=== PATIENT | female | born 1940 | race Caucasian/White ===

== ENCOUNTER 2019-10-17 13:16 | Emergency (ER) | payer MEDICARE, SELFPAY ==
[2019-10-17 13:16] VITALS: BP 166/94; PULSE 65; RESP 18; TEMP 36.7; O2SAT 95; BMI 37.8
--- NOTE | 2019-10-17 14:22 | ECG_ITS ---
Measurements Intervals [place] Rate: 58 P: 36 VA: 210 QRS: -34 QRSD: 96 T: 48 QT: 424 QTc: 420 SINUS BRADYCARDIA WITH FIRST DEGREE AV BLOCK LEFT AXIS DEVIATION [QRS AXIS < -30] LOW QRS VOLTAGE IN PRECORDIAL LEADS [QRS DEFLECTION < 1.0 mV IN CHEST LEADS] POSSIBLE ANTERIOR MYOCARDIAL INFARCTION , PROBABLY OLD Compared to ECG 03/13/2015 16:33:13 Sinus rhythm no longer present Myocardial infarct finding still present Electronically Signed On 10-18-2019 16:21:32 CDT by Jeanne Caruso M.D. [email or web address]
--- NOTE | 2019-10-17 14:22 | XRR_ITS ---
PROCEDURE INFORMATION: Exam: XR Chest, 1 View Exam date and time: 10/17/2019 3:28 PM Age: 78 years old Clinical indication: Cough and dyspnea; Additional info: Dyspnea/cough TECHNIQUE: Imaging protocol: XR of the chest Views: 1 view. COMPARISON: CR Chest 1 [place] [id number] 03/13/2015 4:56 PM FINDINGS: Lungs: Stable hyperaerated lungs consistent with deep inspiratory effort vs reactive airway disease vs mild COPD . Pleural space: Unremarkable. No pleural effusion. No pneumothorax. Heart/Mediastinum: Stable CABG procedure. Bones/joints: Stable postoperative changes over the right shoulder. XR/XR chest 1V portable [id number] IMPRESSION: Stable hyperaerated lungs consistent with deep inspiratory effort vs reactive airway disease vs mild COPD .
--- NOTE | 2019-10-17 14:22 | CT_ITS ---
WS: [id number] CT HEAD NONCONTRAST HISTORY: AMS TECHNIQUE: Contiguous axial imaging performed through the brain in 2.5 mm imaging. Bone and soft tiss ue windows. Sagittal and coronal reformats reviewed. All CT scans at [facility] use at ast one of these dose optimization techniques: automated exposure control; mA and/or kV adjustment pe r patient size (includes targeted exams where dose is matched to clinical indication); or iterative r econstruction. DLP: 766.94 mGy.cm COMPARISON: 03/12/2015 No acute intracranial hemorrhage, midline shift or mass effect. Mild atrophy and chronic ischemic disease. Small prior infarcts in the caudate heads. Bilateral lacun ar infarcts in the external capsules. Ventricles: Normal size with no hydrocephalus. Paranasal sinuses: Opacification of the RIGHT sphenoid sinus. Mastoid air cells: Well pneumatized. Calvarium and scalp: Skull is intact with no soft tissue edema or swelling. CT/CT head wo con* [id number] IMPRESSION: 1. No acute intracranial hemorrhage or edema. 2. Mild atrophy with multiple small lacunar infarcts as above.
[2019-10-17 14:24] VITALS: BP 173/93; PULSE 61; RESP 18; TEMP 36.4; O2SAT 97
[2019-10-17 15:08] LABS: Basophils % 0.1 %; Eosinophils # 0.2 10^3/uL (0.0-0.8); Eosinophils % 2.6 %; Hematocrit 44.3 % (37.0-47.0); Hemoglobin 14.4 g/dL (11.5-15.3); Lymphocytes # 2.7 10^3/uL (0.8-4.8); Lymphocytes % 35.3 %; Mean Corpuscular HGB Conc 32.5 g/dL (30.0-36.0); Mean Corpuscular Hemoglobin 30.8 pg (28.0-34.0); Mean Corpuscular Volume 94.9 fL (81-99); Mean Platelet Volume 10.5 fL (7.4-10.4); Monocytes # 0.8 10^3/uL (0.2-0.9); Monocytes % 10.3 %; Neutrophils # 3.9 10^3/uL (1.8-7.7); Neutrophils % 51.6 %; Nucleated Red Blood Cells % 0 %; Platelet Count 203 10^3/cmm (130-400); Red Blood Count 4.67 10^6/uL (4.1-5.3); Red Cell Distribution Width 12.1 % (12.1-15.1); White Blood Count 7.6 10^3/uL (4.0-10.0)
[2019-10-17 15:17] LABS: Protein Urine Neg (Negative); Urine Color Yellow (Yellow); pH Urine 7 (5-7)
[2019-10-17 15:18] LABS: Add Urine Microscopic? YES; Bilirubin Urine Neg (NEGATIVE); Blood Urine Neg (Negative); Glucose Urine UA Norm (Normal); Ketones Urine Negative (Negative); Leukocyte Esterase Urine Trace (Negative); Nitrate Urine Negative (Negative); Squamous Epithelial Cell Urine 0-4 (0-5); Urobilinogen Urine Norm (Negative)
[2019-10-17 15:19] LABS: Add Urine Culture? No; Bacteria Urine 1+
[2019-10-17 15:32] LABS: Alanine Aminotransferase 36 U/L (0-33); Albumin Level 4.1 g/dL (3.5-5.2); Alkaline Phosphatase 106 IU/L (35-105); Anion Gap 16.3 (5-19); Aspartate Amino Transferase 50 U/L (0-32); Blood Urea Nitrogen 8 mg/dL (8-23); Carbon Dioxide 24 mmol/L (22-29); Chloride 107 mmol/L (98-107); Globulin 3.5 g/dL (1.3-4.6); Glucose 103 mg/dL (65-115); Lipase 27 U/L (13-60); Osmolality Calculated 292 mOsm/kg (285-295); Potassium 4.3 mmol/L (3.5-5.1); Sodium 143 mmol/L (136-145); Total Bilirubin 0.5 mg/dL (0.15-1.2); Total Protein 7.6 g/dL (6.6-8.7)
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
[2019-10-17] MEDS: LORazepam 1 mg Tablet 0.5 MG PO (16:36)
[2019-10-17] MEDS: LORazepam 2 mg/mL INJ 1 mL 0.5 MG IM (16:50)
[2019-10-17 18:04] LABS: Acetaminophen < 5.0 ug/mL (10-30); Alcohol Level < 10 mg/dL (0-10); Salicylate < 0.3 mg/dL (3-10)
[2019-10-17] MEDS: acetaminophen 500 mg Tablet 1000 MG PO (19:39)
[2019-10-17] MEDS: ibuprofen 600 mg Tablet PO (19:39)
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
[2019-10-17] MEDS: cefTRIAXone 1,000 MG, lidocaine 1% 2.1 ML in SYRINGE 1 EACH 999 MG IM (19:45)
[2019-10-17 21:57] LABS: Amphetamines Screen Urine Negative (Negative); Barbiturates Screen Urine Negative (Negative); Benzodiazepines Screen Urine Negative (Negative); Cocaine Screen Urine Negative (Negative); Opiate Screen Urine Negative (Negative); PCP Screen Urine Negative (Negative); THC Screen Urine Negative (Negative)
[2019-10-17 23:16] VITALS: BP 181/96; PULSE 70; RESP 16; O2SAT 96
--- NOTE | 2019-10-17 23:30 | PC.NURSE ---
[facility] [employer] denied patient based off insurance issues
--- NOTE | 2019-10-17 23:37 | PC.NURSE ---
[facility] called and stated they will send paperwork to RN and physician for final review
[2019-10-17 23:56] VITALS: BP 188/73; PULSE 62
[2019-10-17 23:57] VITALS: BP 180/88; PULSE 66
[2019-10-17 23:58] VITALS: BP 181/102; PULSE 71
[2019-10-18 00:16] VITALS: BP 146/77; PULSE 84; RESP 16; O2SAT 94
[2019-10-18 02:17] VITALS: BP 158/95; O2SAT 96
[2019-10-18 02:20] VITALS: BP 158/95
[2019-10-18 02:25] VITALS: BP 158/95
--- NOTE | 2019-10-18 02:31 | PC.NURSE ---
EMS on site to assume care of patient and transport.
[2019-10-18] MEDS: haloperidol inj 5 mg/mL INJ 1 mL 2 MG IM (02:55)
== END 2019-10-18 02:55 ==
PROVIDERS: Family Medicine; Emergency Provider Emergency Medicine; PCP Internal Medicine
DX: F03.91 Unspecified dementia, unspecified severity, with behavioral disturbance (principal); N39.0 Urinary tract infection, site not specified; Z87.891 Personal history of nicotine dependence
CPT/HCPCS: 12345; 36415; 70450; 71045; 80053; 80306; 80307; 81001; 83690; 85025; 93005; 96365; 96372; 99283; 99285; J0696; J1630; J2001; J2060

== ENCOUNTER 2019-11-07 20:48 | Emergency (ER) | payer MEDICARE, SELFPAY ==
[2019-11-07 20:50] VITALS: BP 157/79; PULSE 65; RESP 20; TEMP 36.6; O2SAT 95; BMI 30.9
--- NOTE | 2019-11-07 20:51 | CTR_ITS ---
PROCEDURE INFORMATION: Exam: CT Cervical Spine Without Contrast Exam date and time: 11/07/2019 8:52 PM Age: 78 years old Clinical indication: Injury or trauma; Fall; Initial encounter; Blunt trauma TECHNIQUE: Imaging protocol: Computed tomography images of the cervical spine without contrast. Radiation optimization: All CT scans at this facility use at least one of these dose optimization techniques: automated exposure control; mA and/or kV adjustment per patient size (includes targeted exams where dose is matched to clinical indication); or iterative reconstruction. COMPARISON: CT Cervical Spine wo* [id number] 11/30/2013 12:49 PM RADIATION DOSE METRICS: Total DLP: 930.04 mGy-cm FINDINGS: Vertebrae: Alignment is normal. Vertebral body height is maintained. There is mild multilevel facet spondylosis. There is no acute fracture. Discs/Spinal canal/Neural foramina: There is moderate degenerative disc disease in the cervical spine. There is [id number] multilevel spinal canal stenosis. Other bones/joints: Intact sternotomy is partially imaged. Soft tissues: 2.2 cm densely calcified right lobe thyroid nodule. 2.2 cm hypodense left thyroid nodule. Lungs: Lung apices are clear. Vasculature: There is moderate atherosclerotic disease of the carotid arteries bilaterally. Other findings: The visible portion of the brain is normal. CT/CT cervical spin wo con* [id number] IMPRESSION: 1. No acute fracture. 2. Bilateral thyroid nodules, similar to the findings in 2013. Follow-up imaging is not necessary. COMMENTS: Consistent with the [employer]'s Incidental Findings Committee white paper (J Am Roe Radiol 2015): In patients aged 35 years and older with an incidental thyroid nodule equal to or greater than 1.[address], MRI or extrathyroidal US, further evaluation with dedicated thyroid US is recommended for patients with normal life expectancy and without comorbidities. For smaller nodules without suspicious features, no further evaluation or follow up is recommended. Radiation Dose CTDIVOL = (mGy): DLP = 930.04 (mGy-cm)
--- NOTE | 2019-11-07 20:52 | ED_ITS ---
HPI - Fall General: Chief Complaint: Fall Stated Complaint: knee pain/ head hematoma/ post fall Time Seen by Provider: 11/07/19 20:49 Source: patient and EMS Mode of arrival: EMS Limitations: no limitations History of Present Illness: HPI Narrative: 78-year-old female who [facility]. She landed on her knees and then fell over on her head. She complains of bilateral knee pain along with head pain and neck pain. She denies any pain elsewhere. No loss of consciousness. Patient does have Alzheimer's and full history is slightly difficult MD complaint: fall Associated symptoms-after fall: Denies abdominal pain, chest pain, headache(s) or neck pain Review of Systems Const: Denies: fever(s), chills, body aches or change in appetite Eyes: Denies: blurry vision or eye discomfort ENMT: Denies: throat pain or dental pain Card: Denies: chest pain Resp: Denies: dyspnea GI: Denies: abdominal pain, nausea, vomiting or diarrhea : Denies: dysuria Musc: Reports: joint pain; Denies: neck pain or back pain Skin/Breast: Denies: rash Neuro: Denies: headache(s) Psych: Denies: depression Eliel/Lymph: Denies: easy bruising All/Imm: Denies: urticaria PFSH ED PFSH: Medical History Cognitive impairment Family History Mother Hypertension Rheumatoid arthritis Father Hypertension Brother Diabetes CAD (coronary artery disease) Sister CAD (coronary artery disease) Social History Smoking and tobacco status: unknown if ever smoked Alcohol intake: never Physical Exam Const: COMMON NORMALS: no acute distress, patient oriented x3 and healthy appearing HENMT: COMMON NORMALS: normocephalic HEAD & SCALP: normocephalic OTHER: hematoma to forehead Eye: COMMON NORMALS: Equal, round and reactive pupils present and EOMs intact bilaterally PUPIL: Yes Equal, round and reactive pupils present Neck/C-Spine: OTHER: c collar in place Chest: COMMONS NORMALS: normal inspection of the chest and normal palpation of entire chest wall Resp: COMMON NORMALS: normal respiratory effort, No retractions, No use of accessory muscles and clear to auscultation bilaterally AUSCULTATION: clear to auscultation bilaterally Cardio: COMMON NORMALS: regular rate, regular rhythm and No murmurs present (Cardio) RATE: regular rate RHYTHM: regular rhythm GI: COMMON NORMALS: Normal to inspection, nondistended, normoactive bowel sounds present, Soft to palpation, non-tender and no masses PALPATION: Yes Soft to palpation Extremity: COMMON NORMALS: normal to inspection and full ROM OTHER: tenderness to bilateral knees Neuro: COMMON NORMALS: patient oriented x3, moves all extremities and no focal motor deficits Psych: COMMON NORMALS: mental status grossly normal, Normal thought process present and cooperative THOUGHT PROCESS: Normal thought process present Skin: COMMON NORMALS: no rashes or lesions noted and no wounds GENERAL SKIN EXAM: no rashes or lesions noted Course Vital Signs: Vital signs: Vital Signs Temperature 97.9 F 11/07/19 20:50 Pulse Rate 63 11/07/19 22:30 Respiratory Rate 18 11/07/19 22:30 Blood Pressure 167/92 11/07/19 22:30 Pulse Oximetry 99 11/07/19 22:30 MDM - Fall MDM Narrative: Medical decision making narrative: Patient presents here with a closed head injury from a fall. Patient also has knee pain but no fractures on x-ray. Patient is well-appearing here and is stable for discharge back to the [facility]. Imaging Data^: ct c spine: Attestation: I personally reviewed and interpreted this imaging study as follows: Radiologist's impression: Finalized Reason: [place] [address] CT Scan Report Signed Patient: Mary Garcia Unit #: [id number] : 1940 Age/Sex: 78 / F ADM Date: 11/07/19 Loc: ER Room/Bed: Attending Dr: Ordering Provider/Ordering MD: Karen Ac MD Date of Service: 11/07/19 Procedure(s): CT cervical spin wo con* [id number] Accession Number(s): [id number] Report Number: [id number] PROCEDURE INFORMATION: Exam: CT Cervical Spine Without Contrast Exam date and time: 11/07/2019 8:52 PM Age: 78 years old Clinical indication: Injury or trauma; Fall; Initial encounter; Blunt trauma TECHNIQUE: Imaging protocol: Computed tomography images of the cervical spine without contrast. Radiation optimization: All CT scans at this facility use at least one of these dose optimization techniques: automated exposure control; mA and/or kV adjustment per patient size (includes targeted exams where dose is matched to clinical indication); or iterative reconstruction. COMPARISON: CT Cervical Spine wo* [id number] 11/30/2013 12:49 PM RADIATION DOSE METRICS: Total DLP: 930.04 mGy-cm FINDINGS: Vertebrae: Alignment is normal. Vertebral body height is maintained. There is mild multilevel facet spondylosis. There is no acute fracture. Discs/Spinal canal/Neural foramina: There is moderate degenerative disc disease in the cervical spine. There is [id number] multilevel spinal canal stenosis. Other bones/joints: Intact sternotomy is partially imaged. Soft tissues: 2.2 cm densely calcified right lobe thyroid nodule. 2.2 cm hypodense left thyroid nodule. Lungs: Lung apices are clear. Vasculature: There is moderate atherosclerotic disease of the carotid arteries bilaterally. Other findings: The visible portion of the brain is normal. CT/CT cervical spin wo con* [id number] IMPRESSION: 1. No acute fracture. 2. Bilateral thyroid nodules, similar to the findings in 2013. Follow-up imaging is not necessary. xr knee b: Radiologist's impression: [address] [place] [address] XRay Report Signed Patient: Mary Garcia Unit #: [id number] : 1940 Age/Sex: 78 / F ADM Date: 11/07/19 Loc: ER Room/Bed: Attending Dr: Ordering Provider/Ordering MD: Karen Ac MD Date of Service: 11/07/19 Procedure(s): XR knee LT 3V* [id number] Accession Number(s): [id number] Report Number: [id number] PROCEDURE INFORMATION: Exam: XR Left Knee Exam date and time: 11/07/2019 9:18 PM Age: 78 years old Clinical indication: Injury or trauma; Fall; Initial encounter; Blunt trauma; Knee; Left TECHNIQUE: Imaging protocol: XR Left knee. Views: 3 views. COMPARISON: No relevant prior studies available. FINDINGS: Bones/joints: There is moderate medial compartment joint space narrowing. There are moderate medial and lateral compartment osteophytes. Moderate patellofemoral osteophytes. Trace joint effusion. Bones are osteopenic. No fracture. Soft tissues: Soft tissues are unremarkable. Vasculature: Vascular calcification in the distal thigh. XR/XR knee LT 3V* [id number] IMPRESSION: 1. No acute findings. 2. Moderate tricompartmental degenerative disease. Dictated By: Kit Ann MD Signed By: Kit Ann MD Signed Date/Time: 11/07/192211 DD/ [address] [place] [address] XRay Report Signed Patient: Mary Garcia Unit #: [id number] : 1940 Age/Sex: 78 / F ADM Date: 11/07/19 Loc: ER Room/Bed: Attending Dr: Ordering Provider/Ordering MD: Karen Ac MD Date of Service: 11/07/19 Procedure(s): XR knee RT 3V* [id number] Accession Number(s): [id number] Report Number: [id number] PROCEDURE INFORMATION: Exam: XR Right Knee Exam date and time: 11/07/2019 9:20 PM Age: 78 years old Clinical indication: Injury or trauma; Fall; Initial encounter; Blunt trauma; Knee; Right TECHNIQUE: Imaging protocol: XR Right knee. Views: 3 views. COMPARISON: No relevant prior studies available. FINDINGS: Bones/joints: Marked medial compartment joint space narrowing and osteophytes. Mild lateral compartment joint space widening. Mild patellofemoral osteophytes. No joint effusion. No fracture. Bones are osteopenic. Soft tissues: Unremarkable. Vasculature: There is moderate vascular calcification in the distal thigh. XR/XR knee RT 3V* [id number] IMPRESSION: 1. No acute findings. 2. Marked medial compartment arthrosis. CT Head: Radiologist's impression: [place] [address] CT Scan Report Signed Patient: Mary Garcia Unit #: [id number] : 1940 Age/Sex: 78 / F ADM Date: 11/07/19 Loc: ER Room/Bed: Attending Dr: Ordering Provider/Ordering MD: Karen Ac MD Date of Service: 11/07/19 Procedure(s): CT head wo con* [id number] Accession Number(s): [id number] Report Number: [id number] PROCEDURE INFORMATION: Exam: CT Head Without Contrast Exam date and time: 11/07/2019 8:52 PM Age: 78 years old Clinical indication: Injury or trauma; Fall; Initial encounter; Blunt trauma (contusions or hematomas) TECHNIQUE: Imaging protocol: Computed tomography of the head without contrast. Radiation optimization: All CT scans at this facility use at least one of these dose optimization techniques: automated exposure control; mA and/or kV adjustment per patient size (includes targeted exams where dose is matched to clinical indication); or iterative reconstruction. COMPARISON: CT head wo con* [id number] 10/17/2019 3:17 PM RADIATION DOSE METRICS: Total DLP: 930.04 mGy-cm FINDINGS: Brain: There is diffuse cerebral atrophy and chronic microvascular white matter disease. There is a focal hypodensity in the right caudate nucleus (axial series 2, image 40) suggesting a chronic lacunar infarct. There is no acute intracranial hemorrhage. Ventricles: There is mild ex vacuo dilation of the lateral ventricles. The basal cisterns are unremarkable. Bones/joints: The calvarium is intact. Sinuses: There is complete opacification of the right sphenoid sinus. Paranasal sinuses are otherwise clear. Mastoid air cells: The mastoid air cells are clear. Soft tissues: 2.3 x 1.5 cm left frontal scalp hematoma. CT/CT head wo con* [id number] IMPRESSION: 1. No acute intracranial abnormality. 2. Left frontal scalp hematoma. 3. Chronic lacunar infarct in the right caudate nucleus. Discharge Plan Discharge Patient Disposition: Home, Self-Care Clinical Impression: Fall Qualifiers: Encounter type: initial encounter Qualified Code(s): W19.XXXA - Unspecified fall, initial encounter CHI (closed head injury) Qualifiers: Encounter type: initial encounter Qualified Code(s): S09.90XA - Unspecified injury of head, initial encounter Condition: Stable Prescriptions: No Action pantoprazole 40 mg tablet,delayed release (DR/EC) 40 mg PO BID RF: 0 melatonin 5 mg capsule 5 mg PO BEDTIME PRN (Reason: Sleep) RF: 0 famotidine [Acid Rag Baler (famotidine)] 20 mg tablet 20 mg PO BID RF: 0 olanzapine 5 mg tablet 5 mg PO DAILY Qty: 30 RF: 3 olanzapine 2.5 mg tablet 2.5 mg PO BID Qty: 60 RF: 3 lisinopril 10 mg Tablet 10 mg PO DAILY RF: 0 propranolol 20 mg Tablet 20 mg PO BID RF: 0 Discharge Orders: Discharge Order (Routine); Ordered 11/07/19 Ordered By: Karen Ac Referrals: Ana Ríos MD [Primary Care Provider] - 1-3 days Discharge Diet: Advance as tolerated Discharge Activity: Resume usual activity Patient Instructions: Minor Head Injury (ED) Coding Level of Care Code ED Hr Operations Advisor for Wade Fwd Exam Comprehensive
[2019-11-07 21:11] VITALS: BP 157/60; PULSE 64; RESP 16; O2SAT 97
--- NOTE | 2019-11-07 22:20 | PC.NURSE ---
UA collected and sent to lab
[2019-11-07 22:30] VITALS: BP 167/92; PULSE 63; RESP 18; O2SAT 99
--- NOTE | 2019-11-07 22:50 | PC.NURSE ---
upon entering the room patient was laying in bed with a c-collar in place. patient currently on bedpan attempting to urinate. patient states that she needs to get up out of bed so that she can pee. nurse notified patient that she needs to stay in bed laying flat until her ct/xray results are resulted.
[2019-11-07 23:12] VITALS: BP 169/80; PULSE 60; RESP 16; O2SAT 98
[2019-11-07 23:52] VITALS: BP 175/91; PULSE 63; RESP 15; O2SAT 98
[2019-11-08 01:24] VITALS: BP 168/66; PULSE 61; RESP 16; O2SAT 98
== END 2019-11-08 02:23 | disposition home or self-care (01) ==
PROVIDERS: Emergency Provider Emergency Medicine; PCP Internal Medicine
DX: S09.8XXA Other specified injuries of head, initial encounter (principal); W01.0XXA Fall on same level from slipping, tripping and stumbling without subsequent striking against object, initial encounter; Y92.129 Unspecified place in nursing home as the place of occurrence of the external cause
CPT/HCPCS: 12345; 70450; 72125; 73562; 99282; 99283

== ENCOUNTER 2021-06-04 12:21 | Emergency (ER) | payer MEDICARE, SELFPAY ==
[2021-06-04 12:30] VITALS: BP 164/89; PULSE 89; RESP 14; TEMP 37.4; O2SAT 96; BMI 21.4
--- NOTE | 2021-06-04 12:39 | XRR_ITS ---
PROCEDURE INFORMATION: Exam: XR Chest Exam date and time: 06/04/2021 12:39 PM Age: 80 years old Clinical indication: Dyspnea; Prior surgery; Additional info: Dyspnea/cough TECHNIQUE: Imaging protocol: XR of the chest. Views: 1 view. COMPARISON: CR XR chest 1V portable [id number] 10/17/2019 3:35 PM FINDINGS: Lungs: Unremarkable. No consolidation. Pleural spaces: Unremarkable. No pleural effusion. No pneumothorax. Heart/Mediastinum: The heart is not enlarged. Status post coronary artery bypass. Bones/joints: Unremarkable. XR/XR chest 1V portable [id number] IMPRESSION: No acute cardiopulmonary abnormality.
--- NOTE | 2021-06-04 12:40 | ECG_ITS ---
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 Measurements Intervals [place] Rate: 77 P: -5 NH: 206 QRS: -44 QRSD: 88 T: 67 QT: 390 QTc: 442 Interpretive Statements SINUS RHYTHM LEFT AXIS DEVIATION [QRS AXIS < -30] LOW QRS VOLTAGE IN PRECORDIAL LEADS [QRS DEFLECTION < 1.0 mV IN CHEST LEADS] POSSIBLE ANTERIOR MYOCARDIAL INFARCTION , OF INDETERMINATE AGE [30 ms Q WAVE IN V3/V4, OR R < 0.2 mV IN V4] Compared to ECG 10/17/2019 15:18:24 Sinus bradycardia no longer present First degree AV block no longer present Myocardial infarct finding still present Electronically Signed On 06-04-2021 15:02:52 [employer]ATOR [employer] GENER[employer] SUPERVISOR by Tanmay Almaguer M.D. [email or web address]
[2021-06-04 13:05] LABS: ABG PCO2 28.8 mmHg (35-45); ABG PH Result 7.47 (7.35-7.45); Base Excess ABG -1.2 mmol/L (-2.0-2.0); Blood Gas Allen Test Pos; Blood Gas Sample Type Arterial; Carboxyhemoglobin 0.5 %THgb (0.4-20.1); HCO3 ABG 21.1 mmol/L (22-26); HGB O2 Sat 98.2 % (95-100); Ionized Calcium Level - ABG 1.2 mmol/L (1.1-1.4); Methemoglobin 0.6 % (0.4-1.5); Oxygen Saturation ABG 99.3; Potassium Level - ABG 3.7 mmol/L (3.5-5.0); Total Hemoglobin 15.3 g/dL (12-16)
[2021-06-04 13:06] LABS: Alveolar-Arterial Oxygen Gradi 7.5 mmHg (5-10); Blood Gas LPM 2.5 %; Blood Gas Operator Identificat MONRO; Blood Gas Sample Site Radial, left; Oxygen Device NC
--- NOTE | 2021-06-04 13:07 | ED_ITS ---
HPI - General Adult General: Chief complaint: Altered Mental Status Stated complaint: AMS; DEMENTIA Time Seen by Provider: 06/04/21 12:25 History of Present Illness: HPI narrative: 80-year-old female brought in by EMS. Family reports that she was exposed to Covid and she has had decreasing alertness and activity levels. They also reports she has some dementia. Reportedly she does not use any oxygen at home. She denies any chest pain admits to myalgias subjective fever nonproductive cough. She denies any diarrhea. She will vaguely alluded to this having gone on the last couple of days. Onset (ago): day(s) Relieving factors: none Exacerbating factors: none Associated symptoms: Reports confusion, cough, decreased appetite, dyspnea, fevers/chills, malaise, short of breath and weakness; Deny chest pain, diaphoresis, headache(s), nausea, rash, palpitations, seizures, syncope or vomiting Treatments prior to arrival: none Review of Systems Const: Reports: malaise; Denies: diaphoresis ENMT: Denies: throat pain, ear or mastoid pain, nasal discharge or nasal congestion Card: Denies: chest pain, palpitations or syncope Resp: Reports: dyspnea GI: Denies: nausea or vomiting : Denies: flank pain, difficulty voiding, dysuria, urinary frequency or urinary urgency Skin/Breast: Denies: rash Neuro: Reports: confusion; Denies: headache(s) [facility] PFSH: Medical History 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 Cognitive impairment GERD (gastroesophageal reflux disease) Surgical History H/O knee surgery H/O shoulder surgery H/O: hysterectomy History of cholecystectomy Family History Mother Hypertension Rheumatoid arthritis Father Hypertension Brother Diabetes CAD (coronary artery disease) Sister CAD (coronary artery disease) Social History Smoking and tobacco status: former smoker Alcohol intake: never Physical Exam Const: GENERAL APPEARANCE: cooperative ORIENTATION/CONSCIOUSNESS: Yes awake Resp: COMMON NORMALS: normal respiratory effort, No retractions, No use of accessory muscles and clear to auscultation bilaterally AUSCULTATION: clear to auscultation bilaterally Cardio: COMMON NORMALS: regular rate, regular rhythm and No murmurs present (Cardio) RATE: regular rate RHYTHM: regular rhythm GI: COMMON NORMALS: Soft to palpation and No hepatosplenomegaly present AUSCULTATION: Yes normoactive bowel sounds PALPATION: Yes Soft to palpation, No Tenderness to palpation present (GI), No Guarding due to palpation present (GI) and Yes No hepatosplenomegaly present Extremity: COMMON NORMALS: normal to inspection, capillary refill normal, no clubbing, cyanosis or edema, no calf tenderness and no pedal edema Skin: COMMON NORMALS: no rashes or lesions noted GENERAL SKIN EXAM: no rashes or lesions noted Course Vital Signs: Vital signs: Vital Signs Temperature 99.3 F 06/04/21 12:30 Pulse Rate 69 06/04/21 20:38 Respiratory Rate 20 H 06/04/21 20:38 Blood Pressure 143/84 06/04/21 20:38 Pulse Oximetry 96 06/04/21 20:38 MDM - General Adult MDM Narrative: Medical decision making narrative: Labs imaging and EKG reviewed as found in the chart. Patient is awake and alert and interactive she is somewhat demented. Her vital signs remained stable throughout the entire courses. Initially she came in on 3 L by nasal cannula but were able to titrate her off to room air and she was 96%. Her vital signs remained stable. Her exam is for the most part unremarkable. She does appear as if she has a mild UTI. COVID testing is pending. We will go ahead discharge the patient home if she does have COVID should be candidate for monoclonal antibodies if family wished. If she does have COVID she is tolerating well likely due to previous immunization. Lab Data: Labs: Lab Results 06/04/21 06/04/21 06/04/21 12:53 13:32 13:50 WBC 5.5 10^3/uL 10^3/ uL (4.0-10.0) RBC 4.82 10^6/uL 10^6 /uL (4.1-5.3) Hgb 15.2 g/dL g/dL (11.5-15.3) Hct 46.7 % % (37.0-47.0) MCV 96.9 fl fl (81-99) MCH 31.5 pg pg (28.0-34.0) MCHC 32.5 g/dL g/dL (30.0-36.0) RDW 12.8 % % (12.1-15.1) Plt Count 68 10^3/cmm L 10^ 3/cmm (130-400) MPV 13.0 fL H fL (7.4-10.4) Neut % (Auto) 67.5 % % Lymph % (Auto) 17.6 % % [place] % (Auto) 14.3 % % Eos % (Auto) 0.2 % % Baso % (Auto) 0.2 % % Neut # (Auto) 3.68 10^3/uL 10^3 /uL (1.8-7.7) Lymph # (Auto) 1.0 10^3/uL 10^3/ uL (0.8-4.8) [place] # (Auto) 0.8 10^3/uL 10^3/ uL (0.2-0.9) Eos # (Auto) 0.0 10^3/uL 10^3/ uL (0.0-0.8) Baso # (Auto) 0.0 10^3/uL 10^3/ uL (0.0-0.1) Nucleated RBC % (a uto) 0 % % Nucleated RBCs # 0.0 /100WBC /100W BC Specimen Type Arterial Sample Site Radial, left ABG pH 7.47 H (7.35-7.45) ABG pCO2 28.8 mmHg L mmHg (35-45) ABG pO2 115.0 mmHg H mmHg (80.0-100.0) ABG HCO3 21.1 mmol/L L mmo l/L (22-26) ABG O2 Saturation 99.3 ABG Base Excess -1.2 mmol/L mmol/ L (-2.0-2.0) Kofi Test Pos A-a O2 Gradient 7.5 mmHg mmHg (5-10) Hematocrit 47.0 % % (37-47) Hgb O2 Saturation 98.2 % % (95-100) Carboxyhemoglobin 0.5 %THgb %THgb (0.4-20.1) Methemoglobin 0.6 % % (0.4-1.5) Total Hemoglobin 15.3 g/dL g/dL (12-16) Sodium 141.0 mmol/L mmol /L (131-143) Potassium 3.7 mmol/L mmol/L (3.5-5.0) Glucose 86.0 mg/dL mg/dL (70-115) Ionized Calcium 1.2 mmol/L mmol/L (1.1-1.4) O2 Delivery Device Nc O2 Liters/Min 2.5 % % FiO2 30.0 % % Anger Control Counselor ID [place] Chloride Carbon Dioxide Anion Gap BUN Creatinine GFR Calculation Calculated Osmolal ity Calcium Total Bilirubin AST ALT Alkaline Phosphata se Creatine Kinase Troponin T Baselin e Troponin T 120 Min [place] Troponin T Total Protein Albumin Globulin Urine Color Urine Appearance Urine pH Ur Specific Gravit y Urine Protein Urine Glucose (UA) Urine Ketones Urine Blood Urine Nitrate Urine Bilirubin Urine Urobilinogen Ur Leukocyte Mare ase Coronavirus 229E ( PCR) SARS-CoV-2 (PCR) SARS-CoV-2 Ag (Rap id) Negative (Negative) 06/04/21 06/04/21 06/04/21 13:50 13:50 16:02 WBC RBC Hgb Hct MCV MCH MCHC RDW Plt Count MPV Neut % (Auto) Lymph % (Auto) [place] % (Auto) Eos % (Auto) Baso % (Auto) Neut # (Auto) Lymph # (Auto) [place] # (Auto) Eos # (Auto) Baso # (Auto) Nucleated RBC % (a uto) Nucleated RBCs # Specimen Type Sample Site ABG pH ABG pCO2 ABG pO2 ABG HCO3 ABG O2 Saturation ABG Base Excess Kofi Test A-a O2 Gradient Hematocrit Hgb O2 Saturation Carboxyhemoglobin Methemoglobin Total Hemoglobin Sodium 139 mmol/L mmol/L (136-145) Potassium 4.0 mmol/L mmol/L (3.5-5.1) Glucose 77 mg/dL mg/dL (65-115) Ionized Calcium O2 Delivery Device O2 Liters/Min FiO2 Anger Control Counselor ID Chloride 104 mmol/L mmol/L (98-107) Carbon Dioxide 17 mmol/L L mmol/ L (22-29) Anion Gap 22.0 H (5-19) BUN 9 mg/dL mg/dL (8-23) Creatinine 0.8 mg/dL mg/dL (0.5-0.9) GFR Calculation Not Reportable Calculated Osmolal ity 285 mOsm/kg mOsm/ kg (285-295) Calcium 8.6 mg/dL mg/dL (8.5-10.5) Total Bilirubin 0.5 mg/dL mg/dL (0.15-1.2) AST 55 U/L H U/L (0-32) ALT 37 U/L H U/L (0-33) Alkaline Phosphata se 120 IU/L H IU/L (35-105) Creatine Kinase 72 U/L U/L (26-192) Troponin T Baselin e 13 ng/L H ng/L (0-10) Troponin T 120 Min [place] 12.51 ng/L H ng/L (0-10) Delta Troponin T -0.49 ABS# L ABS# (0-10) Total Protein 6.8 g/dL g/dL (6.6-8.7) Albumin 3.8 g/dL g/dL (3.5-5.2) Globulin 3.0 g/dL g/dL (1.3-4.6) Urine Color Urine Appearance Urine pH Ur Specific Gravit y Urine Protein Urine Glucose (UA) Urine Ketones Urine Blood Urine Nitrate Urine Bilirubin Urine Urobilinogen Ur Leukocyte Mare ase Coronavirus 229E ( PCR) SARS-CoV-2 (PCR) SARS-CoV-2 Ag (Rap id) 06/04/21 06/04/21 18:35 19:10 WBC RBC Hgb Hct MCV MCH MCHC RDW Plt Count MPV Neut % (Auto) Lymph % (Auto) [place] % (Auto) Eos % (Auto) Baso % (Auto) Neut # (Auto) Lymph # (Auto) [place] # (Auto) Eos # (Auto) Baso # (Auto) Nucleated RBC % (a uto) Nucleated RBCs # Specimen Type Sample Site ABG pH ABG pCO2 ABG pO2 ABG HCO3 ABG O2 Saturation ABG Base Excess Kofi Test A-a O2 Gradient Hematocrit Hgb O2 Saturation Carboxyhemoglobin Methemoglobin Total Hemoglobin Sodium Potassium Glucose Ionized Calcium O2 Delivery Device O2 Liters/Min FiO2 Anger Control Counselor ID Chloride Carbon Dioxide Anion Gap BUN Creatinine GFR Calculation Calculated Osmolal ity Calcium Total Bilirubin AST ALT Alkaline Phosphata se Creatine Kinase Troponin T Baselin e Troponin T 120 Min [place] Troponin T Total Protein Albumin Globulin Urine Color Yellow (Yellow) Urine Appearance Clear (CLEAR) Urine pH 5 (5-7) Ur Specific Gravit y 1.025 (1.005-1.030) Urine Protein Neg (Negative) Urine Glucose (UA) Norm (Normal) Urine Ketones 1+ H (Negative) Urine Blood Neg (Negative) Urine Nitrate Negative (Negative) Urine Bilirubin Neg (Negative) Urine Urobilinogen 1 mg/dL H mg/dL (Negative) Ur Leukocyte Mare ase Negative (Negative) Coronavirus 229E ( PCR) Not detected (NOT DETECT) SARS-CoV-2 (PCR) Detected A (NOT DETECT) SARS-CoV-2 Ag (Rap id) Discharge Plan Discharge Patient Disposition: Home Clinical Impression: Dementia, Close exposure to COVID-19 virus Condition: Stable Prescriptions: No Action pantoprazole 40 mg tablet,delayed release (DR/EC) 40 mg PO DAILY RF: 0 melatonin 5 mg capsule 5 mg PO BEDTIME PRN (Reason: Sleep) RF: 0 donepezil 10 mg tablet 10 mg PO DAILY RF: 0 risperidone 0.25 mg tablet 0.25 mg PO DAILY RF: 0 risperidone 0.5 mg tablet 0.5 mg PO DAILY RF: 0 escitalopram oxalate 10 mg tablet 10 mg PO DAILY RF: 0 memantine 10 mg tablet 10 mg PO BID RF: 0 Discharge Orders: Discharge ED (Routine); Ordered 06/04/21 Ordered By: Yeison De La Fuente Referrals: Ana Ríos MD [Primary Care Provider] - Discharge Diet: Usual diet Discharge Activity: Limit activity as instructed Patient Instructions: Opioid Safety Activity Restrictions/Additional Instructions: Follow-up with your primary care doctor in the next 2 to 3 days. Coding Level of Care Code ED Clinical Trainer for Wade Fwd Exam Detailed
[2021-06-04 13:41] VITALS: BP 154/84; PULSE 62; RESP 24; O2SAT 95
[2021-06-04 14:14] LABS: Basophils % 0.2 %; Eosinophils % 0.2 %; Hematocrit 46.7 % (37.0-47.0); Hemoglobin 15.2 g/dL (11.5-15.3); Lymphocytes % 17.6 %; Mean Corpuscular HGB Conc 32.5 g/dL (30.0-36.0); Mean Corpuscular Hemoglobin 31.5 pg (28.0-34.0); Mean Corpuscular Volume 96.9 fl (81-99); Monocytes # 0.8 10^3/uL (0.2-0.9); Monocytes % 14.3 %; Neutrophils # 3.68 10^3/uL (1.8-7.7); Neutrophils % 67.5 %; Nucleated Red Blood Cells % 0 %; Platelet Count 68 10^3/cmm (130-400); Red Blood Count 4.82 10^6/uL (4.1-5.3); Red Cell Distribution Width 12.8 % (12.1-15.1); White Blood Count 5.5 10^3/uL (4.0-10.0)
[2021-06-04 14:28] LABS: Troponin(5th) Baseline 13 ng/L (0-10)
[2021-06-04 14:42] LABS: SARS Covid-2 Antigen Negative (Negative)
[2021-06-04 15:01] LABS: Alanine Aminotransferase 37 U/L (0-33); Albumin Level 3.8 g/dL (3.5-5.2); Alkaline Phosphatase 120 IU/L (35-105); Aspartate Amino Transferase 55 U/L (0-32); Blood Urea Nitrogen 9 mg/dL (8-23); Calcium 8.6 mg/dL (8.5-10.5); Carbon Dioxide 17 mmol/L (22-29); Chloride 104 mmol/L (98-107); Creatine Phosphokinase 72 U/L (26-192); Glucose 77 mg/dL (65-115); Osmolality Calculated 285 mOsm/kg (285-295); Sodium 139 mmol/L (136-145); Total Bilirubin 0.5 mg/dL (0.15-1.2); Total Protein 6.8 g/dL (6.6-8.7)
[2021-06-04 16:36] LABS: Troponin 5 2HR 12.51 ng/L (0-10)
[2021-06-04 16:44] LABS: Troponin 5 2HR Delta -0.49 ABS# (0-10)
[2021-06-04] MEDS: sodium chloride 0.9% 500 ML 999 ML IV (16:48)
[2021-06-04] MEDS: cefTRIAXone 1,000 MG in sodium chloride 0.9% (plus) 50 ML 100 MG IV (17:00)
[2021-06-04 17:02] VITALS: BP 172/89; PULSE 79; RESP 17; O2SAT 96
[2021-06-04 19:21] LABS: Add Urine Microscopic? NO; Charge for UA Resulting for Rev
[2021-06-04 19:29] LABS: Bilirubin Urine Neg (Negative); Blood Urine Neg (Negative); Glucose Urine UA Norm (Normal); Ketones Urine 1+ (Negative); Leukocyte Esterase Urine Negative (Negative); Nitrate Urine Negative (Negative); Protein Urine Neg (Negative); Specific Gravity, Urine 1.025 (1.005-1.030); Urine Appearance Clear (CLEAR); Urine Color Yellow (Yellow); Urobilinogen Urine 1 mg/dL (Negative); pH Urine 5 (5-7)
[2021-06-04 20:38] VITALS: BP 143/84; PULSE 69; RESP 20; O2SAT 96
[2021-06-04 21:09] LABS: Adenovirus Not Detected (NOT DETECT); Chlamydia Pneumoniae Not Detected (NOT DETECT); Coronavirus 229E,HKU1,NL63,OC4 Not Detected (NOT DETECT); Human Metapneumovirus Not Detected (NOT DETECT); Human Rhinovirus/Enterovirus Not Detected (NOT DETECT); Influenza A Not Detected (NOT DETECT); Influenza A H1 Not Detected (NOT DETECT); Influenza A H1-2009 Not Detected (NOT DETECT); Influenza A H3 Not Detected (NOT DETECT); Influenza B Not Detected (NOT DETECT); Mycoplasma Pneumoniae Not Detected (NOT DETECT); Parainfluenza Virus Type 1 Not Detected (NOT DETECT); Parainfluenza Virus Type 2 Not Detected (NOT DETECT); Parainfluenza Virus Type 3 Not Detected (NOT DETECT); Parainfluenza Virus Type 4 Not Detected (NOT DETECT); Respiratory Syncytial Virus A Not Detected (NOT DETECT); Respiratory Syncytial Virus B Not Detected (NOT DETECT); SARS-COV-2 Detected (NOT DETECT)
== END 2021-06-04 20:20 | disposition home or self-care (01) ==
PROVIDERS: Emergency Provider Family Medicine; PCP Internal Medicine
DX: U07.1 COVID-19 (principal); F03.90 Unspecified dementia, unspecified severity, without behavioral disturbance, psychotic disturbance, mood disturbance, and anxiety; Z87.891 Personal history of nicotine dependence
CPT/HCPCS: 36415; 36600; 71045; 80051; 80053; 81003; 82330; 82550; 82805; 84484; 85025; 87040; 87426; 87635; 93005; 96365; 99284; J0696; J7040

== ENCOUNTER 2021-06-07 05:53 | Inpatient (IN) | payer MEDICARE, MEDICAID, SELFPAY ==
[2021-06-07] VITALS (9 sets, daily range): BP systolic 142–180; BP diastolic 62–92; PULSE 63–73; RESP 17–22; TEMP 36.5–36.7; O2SAT 92–98; BMI 34.3; BMI 29.4
--- NOTE | 2021-06-07 06:09 | W.ED.EXTPRO ---
HPI - Extremity Problem General: Chief complaint: Extremity Injury, Upper Stated complaint: FALL Time Seen by Provider: 06/07/21 05:57 History of Present Illness: HPI Narrative: 80-year-old female brought to the emergency room via EMS. On arrival she is sedate actually appears to be hallucinating she is repetitive about asking for help. She has known history of dementia she fell at home she is complaining of pain in her right hip and they gave her ketamine today move her. She evidently fell around 415 was not able to get up or straighten the leg. She was seen 3 days ago in the emergency room for Covid exposure she did test positive on a PCR but she had been vaccinated her oxygen saturations were normal and evaluation for the most part was unremarkable she did have a mild UTI which she was treated with Rocephin. There is no family available at this time. Patient is not able to give any other meaningful history. MD Complaint: extremity pain (Right hip) Onset (ago): hour(s) (Approximately 2 and half hours prior to arrival) Pain Consistency: constant Quality: sharp Radiation: none Relieving factors: immobilization Exacerbating factors: range of motion and palpation Associated symptoms: Deny arthralgias, chest pain, fever(s), myalgias, rash, short of breath or other Review of Systems Const: Denies: fever(s) ENMT: Denies: throat pain, ear or mastoid pain, nasal discharge or nasal congestion Card: Denies: chest pain Resp: Denies: dyspnea, productive cough or non-productive cough GI: Denies: abdominal pain, nausea, vomiting, hematemesis, coffee ground emesis, diarrhea, constipation, bloating, hematochezia or melena : Denies: flank pain, difficulty voiding, dysuria, urinary frequency or urinary urgency Skin/Breast: Denies: rash PFSH ED PFSH: Medical History 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 Cognitive impairment GERD (gastroesophageal reflux disease) Surgical History H/O knee surgery H/O shoulder surgery H/O: hysterectomy History of cholecystectomy Family History Mother Hypertension Rheumatoid arthritis Father Hypertension Brother Diabetes CAD (coronary artery disease) Sister CAD (coronary artery disease) Social History Smoking and tobacco status: former smoker Alcohol intake: never Physical Exam Const: ORIENTATION/CONSCIOUSNESS: Yes awake HENMT: COMMON NORMALS: normocephalic, atraumatic and hearing grossly normal bilaterally HEAD & SCALP: normocephalic and atraumatic Neck/C-Spine: COMMON NORMALS: no JVD Resp: COMMON NORMALS: normal respiratory effort, No retractions, No use of accessory muscles and clear to auscultation bilaterally AUSCULTATION: clear to auscultation bilaterally Cardio: COMMON NORMALS: no JVD, regular rate, regular rhythm and No murmurs present (Cardio) RATE: regular rate RHYTHM: regular rhythm GI: COMMON NORMALS: Soft to palpation and No hepatosplenomegaly present AUSCULTATION: Yes normoactive bowel sounds PALPATION: Yes Soft to palpation, No Tenderness to palpation present (GI), No Guarding due to palpation present (GI) and Yes No hepatosplenomegaly present Extremity: COMMON NORMALS: normal to inspection, capillary refill normal, no clubbing, cyanosis or edema, no calf tenderness and no pedal edema NARRATIVE EXTREMITY EXAM: Right leg shortened and externally rotated. Skin: COMMON NORMALS: no rashes or lesions noted GENERAL SKIN EXAM: no rashes or lesions noted Course Vital Signs: Vital signs: Vital Signs Temperature 98.2 F 06/10/21 04:00 Pulse Rate 66 06/10/21 04:00 Respiratory Rate 17 06/10/21 04:00 Blood Pressure 146/76 06/10/21 04:00 Pulse Oximetry 91 06/10/21 04:00 MDM - Extremity (Nontraumatic) MDM Narrative: Medical decision making narrative: Right intertrochanteric hip fracture. Unfortunately patient also has recently acquired COVID. She is tolerating well and has minimal symptoms. If not for the hip fracture she would not need to be admitted. Discussed with Dr. Ruth also consulted orthopedics orders written. Lab Data: Labs: Lab Results 06/07/21 06/07/21 06/07/21 07:51 07:51 07:51 WBC 8.6 10^3/uL 10^3/ uL (4.0-10.0) RBC 4.84 10^6/uL 10^6 /uL (4.1-5.3) Hgb 15.2 g/dL g/dL (11.5-15.3) Hct 43.5 % % (37.0-47.0) MCV 89.9 fl fl (81-99) MCH 31.4 pg pg (28.0-34.0) MCHC 34.9 g/dL g/dL (30.0-36.0) RDW 12.3 % % (12.1-15.1) Plt Count 129 10^3/cmm L 10 ^3/cmm (130-400) MPV 11.3 fL H fL (7.4-10.4) Neut % (Auto) 75.8 % % Lymph % (Auto) 12.4 % % Barnwell % (Auto) 11.2 % % Eos % (Auto) 0.0 % % Baso % (Auto) 0.1 % % Neut # (Auto) 6.51 10^3/uL 10^3 /uL (1.8-7.7) Lymph # (Auto) 1.1 10^3/uL 10^3/ uL (0.8-4.8) Barnwell # (Auto) 1.0 10^3/uL H 10^ 3/uL (0.2-0.9) Eos # (Auto) 0.0 10^3/uL 10^3/ uL (0.0-0.8) Baso # (Auto) 0.0 10^3/uL 10^3/ uL (0.0-0.1) Nucleated RBC % (a uto) 0 % % Nucleated RBCs # 0.0 /100WBC /100W BC PT 15.40 SECONDS H S ECONDS (12.1-14.9) INR 1.19 (0.8-1.2) APTT 33.0 SECONDS SECO NDS (23.9-36.7) Sodium 141 mmol/L mmol/L (136-145) Potassium 3.8 mmol/L mmol/L (3.5-5.1) Chloride 102 mmol/L mmol/L (98-107) Carbon Dioxide 26 mmol/L mmol/L (22-29) Anion Gap 16.8 (5-19) BUN 13 mg/dL mg/dL (8-23) Creatinine 0.6 mg/dL mg/dL (0.5-0.9) GFR Calculation Not Reportable Glucose 127 mg/dL H mg/dL (65-115) Calculated Osmolal ity 294 mOsm/kg mOsm/ kg (285-295) Calcium 8.7 mg/dL mg/dL (8.5-10.5) Total Bilirubin 0.6 mg/dL mg/dL (0.15-1.2) AST 54 U/L H U/L (0-32) ALT 39 U/L H U/L (0-33) Alkaline Phosphata se 103 IU/L IU/L (35-105) Total Protein 6.9 g/dL g/dL (6.6-8.7) Albumin 3.8 g/dL g/dL (3.5-5.2) Globulin 3.1 g/dL g/dL (1.3-4.6) Urine Color Urine Appearance Urine pH Ur Specific Gravit y Urine Protein Urine Glucose (UA) Urine Ketones Urine Blood Urine Nitrate Urine Bilirubin Urine Urobilinogen Ur Leukocyte Mare ase Urine RBC Urine WBC Ur Squamous Epith Cells Amorphous Sediment Urine Bacteria Hyaline Casts Urine Mucus 06/07/21 10:44 WBC RBC Hgb Hct MCV MCH MCHC RDW Plt Count MPV Neut % (Auto) Lymph % (Auto) Barnwell % (Auto) Eos % (Auto) Baso % (Auto) Neut # (Auto) Lymph # (Auto) Barnwell # (Auto) Eos # (Auto) Baso # (Auto) Nucleated RBC % (a uto) Nucleated RBCs # PT INR APTT Sodium Potassium Chloride Carbon Dioxide Anion Gap BUN Creatinine GFR Calculation Glucose Calculated Osmolal ity Calcium Total Bilirubin AST ALT Alkaline Phosphata se Total Protein Albumin Globulin Urine Color Dark yellow (Yellow) Urine Appearance Cloudy (CLEAR) Urine pH 5 (5-7) Ur Specific Gravit y 1.030 (1.005-1.030) Urine Protein Neg (Negative) Urine Glucose (UA) Norm (Normal) Urine Ketones 1+ H (Negative) Urine Blood Neg (Negative) Urine Nitrate Negative (Negative) Urine Bilirubin 1+ H (Negative) Urine Urobilinogen 4 mg/dL H mg/dL (Negative) Ur Leukocyte Mare ase Negative (Negative) Urine RBC 0-4 /hpf H /hpf (0-2) Urine WBC 0-4 /hpf H /hpf (0-5) Ur Squamous Epith Cells 0-4 /hpf H /hpf (0-5) Amorphous Sediment Not Reportable Urine Bacteria 1+ /hpf H /hpf (NONE) Hyaline Casts 0-4 /lpf H /lpf Urine Mucus 1+ /hpf /hpf Discharge Plan Discharge Patient Disposition: Admitted As Inpatient Admit Provider: Pepe Red Clinical Impression: Intertrochanteric fracture of right hip, Thrombocytopenia, Dementia, COVID-19 Condition: Stable Coding Level of Care Code ED Manager Transport for Chg Fwd Exam Comprehensive
--- NOTE | 2021-06-07 06:37 | XRR_ITS ---
PROCEDURE INFORMATION: Exam: XR Right Hip Exam date and time: 06/07/2021 6:37 AM Age: 80 years old Clinical indication: Injury or trauma; Blunt trauma (contusions or hematomas); Right; Hip; Injury date: Today; Injury details: PT confused unable to give good history, fall; Additional info: Fall/pain TECHNIQUE: Imaging protocol: XR Right hip. Views: 1 view hip with pelvis when performed. Total images: 2 COMPARISON: CR Pelvis AP 1 or 2 views* [id number] 07/18/2018 9:37 AM FINDINGS: Bones/joints: Comminuted intertrochanteric fracture of the right femur. Diffuse osteopenia noted. The pubic symphysis demonstrates degenerative changes. Soft tissues: Unremarkable. Other findings: Dystrophic calcifications noted medially unchanged. XR/XR hip RT 2-3V wo/w pel* [id number] IMPRESSION: Comminuted intertrochanteric fracture of the right femur.
[2021-06-07] MEDS: morphine 4 mg/mL SDV 1 mL IVP (07:04)
--- NOTE | 2021-06-07 07:14 | XR_ITS ---
WS: [id number] CERVICAL SPINE 3 VIEWS HISTORY: fall COMPARISON: 09/06/2010 Extremely limited evaluation of the cervical spine due to patient's immobility and osteopenia. C3 retrolisthesis by less than 2 mm. Disc spaces are narrow. Bones are osteopenic. Incomplete evaluat ion and nonvisualization inferior to C5. Facet joints are narrowed. No prevertebral soft tissue swell ing. Lateral masses are aligned at C1 and C2. Odontoid is intact. Mild RIGHT curvature of the cervical spine with facet joint arthritis. XR/XR cervical spine 3V* [id number] IMPRESSION: 1. Very limited evaluation cervical spine due to osteopenia and difficulty pos itioning the patient. 2. Inferior to the C5 vertebral body incomplete evaluation. 3. No fractures identified. 4. If pain persists consider CT evaluation.
--- NOTE | 2021-06-07 07:27 | ECG_ITS ---
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 Measurements Intervals Farrell Rate: 70 P: 42 MD: 186 QRS: -31 QRSD: 94 T: 94 QT: 417 QTc: 451 Interpretive Statements SINUS RHYTHM LEFT AXIS DEVIATION [QRS AXIS < -30] POSSIBLE ANTERIOR MYOCARDIAL INFARCTION , OF INDETERMINATE AGE [30 ms Q WAVE IN V3/V4, OR R < 0.2 mV IN V4] Compared to ECG 06/04/2021 13:27:41 No significant changes Electronically Signed On 06-07-2021 13:01:25 WEB PROGRAMMER by Jeanne Caruso M.D. [email or web address]
--- NOTE | 2021-06-07 07:27 | XR_ITS ---
WS: [id number] PORTABLE CHEST HISTORY: dyspnea/cough COMPARISON: 06/04/2021 Prior CABG. Lungs are very slightly hyperexpanded. No pneumonia. Normal vasculature. No pleural effusion or pneum othorax. Cardiac size: Normal. Mediastinum/Aorta: Mildly ectatic atherosclerotic changes within the aorta. Diffuse osteopenia. No acute fractures identified radiographically. Moderate degenerative changes at the glenohumeral joints bilaterally. XR/XR chest 1V portable [id number] IMPRESSION: 1. Prior CABG. 2. Ectatic mildly atherosclerotic changes within the aorta. 3. Osteopenia.
[2021-06-07 08:07] LABS: Basophils % 0.1 %; Hematocrit 43.5 % (37.0-47.0); Hemoglobin 15.2 g/dL (11.5-15.3); Lymphocytes # 1.1 10^3/uL (0.8-4.8); Lymphocytes % 12.4 %; Mean Corpuscular HGB Conc 34.9 g/dL (30.0-36.0); Mean Corpuscular Hemoglobin 31.4 pg (28.0-34.0); Mean Corpuscular Volume 89.9 fl (81-99); Mean Platelet Volume 11.3 fL (7.4-10.4); Monocytes % 11.2 %; Neutrophils # 6.51 10^3/uL (1.8-7.7); Neutrophils % 75.8 %; Nucleated Red Blood Cells % 0 %; Platelet Count 129 10^3/cmm (130-400); Red Blood Count 4.84 10^6/uL (4.1-5.3); Red Cell Distribution Width 12.3 % (12.1-15.1); White Blood Count 8.6 10^3/uL (4.0-10.0)
--- NOTE | 2021-06-07 08:25 | PM.HP ---
Providers/Chief Complaint Primary Care Provider: Ana Ríos MD Chief Complaint: FALL History of Present Illness Mary Garcia is a 80 year old female who presented to ER today after experiencing a fall at home. PMH is significant for dementia, COPD, factor 5 Leiden mutation, depression, GERD, and history of CABG (2003). Due to patient's history of dementia, further history was obtained from daughter. Patient fell at home around 4:15AM with no LOC after fall. Patient currently lives at home. Hip and pelvis XR performed in ER showed right femur fracture while cervical spine XR and chest XR were unremarkable. Recently the patient was also having problems with constipation. Patient recently went to ER on 06/04/21 for altered mental status and was diagnosed with COVID via PCR and mild UTI (treated with Rocephin). Review of Systems General: Reports: ROS unobtainable due to mental status (dementia) Medications/Allergies Home Medications Medication Instructions Recorded Confirmed Last Taken Type melatonin 5 mg capsule 5 mg PO BEDTIME PRN cap 09/24/19 06/07/21 Unknown History pantoprazole 40 mg tablet,delayed 40 mg PO DAILY tab 09/24/19 06/07/21 Unknown History release donepezil 10 mg PO DAILY 06/04/21 06/07/21 Unknown History escitalopram oxalate 10 mg PO DAILY 06/04/21 06/07/21 Unknown History memantine 10 mg PO BID 06/04/21 06/07/21 Unknown History risperidone 0.25 mg PO DAILY 06/04/21 06/07/21 Unknown History risperidone 0.5 mg PO DAILY 06/04/21 06/07/21 Unknown History Allergies Allergy/AdvReac Type Severity Reaction Status Date / Time metronidazole [From Flagyl] Allergy Unknown Verified 06/07/21 06:07 Penicillins Allergy Unknown Verified 06/07/21 06:07 PFSH Acute PFSH: Medical History (Updated 06/07/21 @ 13:48 by Pepe Red MD) 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 Cognitive impairment GERD (gastroesophageal reflux disease) Surgical History (Updated 06/07/21 @ 13:18 by Pepe Red MD) H/O knee surgery H/O shoulder surgery H/O: hysterectomy History of cholecystectomy Family History Mother Hypertension Rheumatoid arthritis Father Hypertension Brother Diabetes CAD (coronary artery disease) Sister CAD (coronary artery disease) Social History (Updated 06/07/21 @ 13:16 by Pepe Red MD) Smoking and tobacco status: former smoker Alcohol intake: never Other [facility] information: History of factor V Leiden deficiency Vitals/I&O/Wt Last Vital Signs Pulse 68 06/07/21 05:58 Resp 22 H 06/07/21 07:04 BP 142/73 06/07/21 05:58 Pulse Ox 94 06/07/21 07:04 Weight last 48 hrs Weight 90.718 kg Physical Exam Narrative: EXAM NARRATIVE: General exam no distress, obvious confusion HEENT: Atraumatic normocephalic. Oropharynx clear. Neck is supple no lymphadenopathy or thyromegaly Cardiovascular regular rhythm no murmur Lungs clear Abdomen is soft with positive bowel sounds. No obvious organomegaly deferred Extremities no cyanosis clubbing or edema, cap refill brisk. Right leg shortened and externally rotated. Skin no rash Neuro: No obvious focal deficits. Data : 06/07/21 07:51 06/07/21 07:51 Other data: UA 0-4 red blood cells 0-4 white blood cells LFTs reviewed. Slight elevation in AST and ALT at 54 and 39. INR is 1.19. Chest x-ray no infiltrate, prior CABG Cervical spine x-ray no fracture(patient denies any neck pain) X-ray right femur demonstrates comminuted intertrochanteric hip fracture EKG demonstrates sinus rhythm, left axis deviation, nonspecific ST-T wave changes and Q waves in V1. A&P Assessment and plan (1) Closed right hip fracture: Orthopedic surgery consultation N.p.o. after midnight Heparin for DVT prophylaxis Close monitoring of platelets Will need nursing facility placement. This could be difficult considering her positive Covid test. Urinary catheter placement Status: Acute (2) Thrombocytopenia: Continue to monitor closely. Only mild decrease in platelet count this visit Status: Acute (3) Dementia: With history of behaviors. Continue chronic medications. Status: Acute Additional A&P Information Recent history of Covid with history of positive test June 04. She was seen in the emergency department for this on June 04. From my understanding at that time she had no pulmonary symptoms, nor does she today. I am not for sure if monoclonal antibody was offered at that time. She has been vaccinated. She will need to continue to isolate. Multiple other medical problems as outlined in past medical history Heparin for DVT prophylaxis Attestations Medical Necessity Statement*: Will need greater than 2 midnight stay for evaluation and treatment of hip fracture. Time Spent in Patient Care: 16 - 35 minutes Coding Level of Care Code Acute Plasma Processing Technician for [facility] Fwd Diagnoses Closed right hip fracture S72.001A Thrombocytopenia D69.6 Dementia F03.90
[2021-06-07 08:26] LABS: Alanine Aminotransferase 39 U/L (0-33); Albumin Level 3.8 g/dL (3.5-5.2); Alkaline Phosphatase 103 IU/L (35-105); Anion Gap 16.8 (5-19); Aspartate Amino Transferase 54 U/L (0-32); Blood Urea Nitrogen 13 mg/dL (8-23); Calcium 8.7 mg/dL (8.5-10.5); Carbon Dioxide 26 mmol/L (22-29); Chloride 102 mmol/L (98-107); Globulin 3.1 g/dL (1.3-4.6); Glucose 127 mg/dL (65-115); Osmolality Calculated 294 mOsm/kg (285-295); Potassium 3.8 mmol/L (3.5-5.1); Sodium 141 mmol/L (136-145); Total Bilirubin 0.6 mg/dL (0.15-1.2); Total Protein 6.9 g/dL (6.6-8.7)
[2021-06-07 08:35] LABS: INR 1.19 (0.8-1.2)
[2021-06-07 11:13] LABS: Add Urine Microscopic? YES; Bilirubin Urine 1+ (Negative); Blood Urine Neg (Negative); Glucose Urine UA Norm (Normal); Ketones Urine 1+ (Negative); Leukocyte Esterase Urine Negative (Negative); Nitrate Urine Negative (Negative); Protein Urine Neg (Negative); Urine Appearance Cloudy (CLEAR); Urine Color Dark Yellow (Yellow); Urobilinogen Urine 4 mg/dL (Negative); pH Urine 5 (5-7)
[2021-06-07 11:14] LABS: Bacteria Urine 1+ /hpf; Hyaline Casts Urine 0-4 /lpf; Mucus Urine 1+ /hpf; RBC Urine 0-4 /hpf (0-2); Squamous Epithelial Cell Urine 0-4 /hpf (0-5); WBC Urine 0-4 /hpf (0-5)
[2021-06-07] MEDS: morphine 4 mg/mL SDV 1 mL 2 MG IVP (21:21)
--- NOTE | 2021-06-07 23:21 | PC.NURSE ---
i reported high reps 20 to nurse
[2021-06-08] VITALS (26 sets, daily range): BP systolic 132–163; BP diastolic 64–84; PULSE 68–91; RESP 16–20; TEMP 36.4–37; O2SAT 91–99
--- NOTE | 2021-06-08 | SCC_ITS ---
Procedure Done: 1. Right Intramedullary nail for Intertrochanteric hip fracture 36.9 seconds of fluoroscopic guidance, for a cumulative dose of 8.17mGy, was provided to Dr. Poole by the radiology department. C-arm images of the RIGHT hip were saved for the patient's permanent record. [facility]
--- NOTE | 2021-06-08 | XR_ITS ---
WS: [id number] Right hip, C-arm fluoroscopy, 06/08/2021 Clinical Data: right hip fracture Comparison: Right hip, 06/07/2021. Findings: There is a right femoral neck screw held in position with a proximal right intertrochanteric femoral moo. The right intertrochanteric fracture is reduced. XR/XR hip RT 2-3V wo/w pel* [id number] Impression: Internal fixation of right hip intertrochanteric fracture.
[2021-06-08] MEDS: D5-NS 0.45% + KCL 20 mEq 20 MEQ/1,000 ML BAG 100 MEQ IV (00:12)
[2021-06-08] MEDS: heparin 5,000 unit/mL INJ 1 mL 5000 UNIT SUBCUT (00:12)
[2021-06-08] MEDS: memantine 5 mg tablet 10 MG PO ×3 (00:13→17:10)
[2021-06-08] MEDS: risperiDONE 0.25 mg Tablet PO ×3 (00:13→17:10)
[2021-06-08] MEDS: morphine 4 mg/mL SDV 1 mL 2 MG IVP ×4 (00:13→20:09)
[2021-06-08 06:16] LABS: Basophils % 0.1 %; Hematocrit 39.9 % (37.0-47.0); Hemoglobin 13.7 g/dL (11.5-15.3); Lymphocytes # 1.2 10^3/uL (0.8-4.8); Lymphocytes % 18.1 %; Mean Corpuscular HGB Conc 34.3 g/dL (30.0-36.0); Mean Corpuscular Hemoglobin 31.4 pg (28.0-34.0); Mean Corpuscular Volume 91.3 fl (81-99); Mean Platelet Volume 11.6 fL (7.4-10.4); Monocytes # 0.8 10^3/uL (0.2-0.9); Monocytes % 11.7 %; Neutrophils # 4.69 10^3/uL (1.8-7.7); Neutrophils % 69.8 %; Nucleated Red Blood Cells % 0 %; Platelet Count 104 10^3/cmm (130-400); Red Blood Count 4.37 10^6/uL (4.1-5.3); Red Cell Distribution Width 12.4 % (12.1-15.1); White Blood Count 6.7 10^3/uL (4.0-10.0)
[2021-06-08 06:26] LABS: Alanine Aminotransferase 29 U/L (0-33); Albumin Level 3.1 g/dL (3.5-5.2); Alkaline Phosphatase 87 IU/L (35-105); Anion Gap 15.1 (5-19); Aspartate Amino Transferase 45 U/L (0-32); Blood Urea Nitrogen 11 mg/dL (8-23); Calcium 7.6 mg/dL (8.5-10.5); Carbon Dioxide 24 mmol/L (22-29); Chloride 104 mmol/L (98-107); Globulin 2.8 g/dL (1.3-4.6); Glucose 126 mg/dL (65-115); Osmolality Calculated 291 mOsm/kg (285-295); Potassium 3.1 mmol/L (3.5-5.1); Sodium 140 mmol/L (136-145); Total Bilirubin 0.6 mg/dL (0.15-1.2); Total Protein 5.9 g/dL (6.6-8.7)
--- NOTE | 2021-06-08 06:47 | PM.CONSULT ---
Documented by User: Raheel Sosa PA-C 06/08/21 06:53 Providers/Reason For Consult Consulting Physician/Specialty*: Orthopedics Reason for Consult*: Right hip pain Attending Physician: Pepe Red MD Primary Care Provider: Ana Ríos MD History of Present Illness History of Present Illness Mary Garcia is a 80 year old female who fell at home on 06/07/2021, sustaining injury to her right hip. She presented to the [facility] emergency room. X-rays confirmed a right hip fracture and orthopedics was consulted. She was evaluated in ER bay 13 with a nurse present complaining of right hip pain. It was sharp stabbing constant in nature any movement made it much worse. She fell from a standing position. She is confused about awake. No obvious distress. Pain has been constant localized to the right hip. Denies any loss of consciousness in the fall. Denies any neck or back pain. Patient is a poor historian most of the information is gleaned from the chart. An extensive review of the patient's past medical history, surgical history, allergies, medications, family history, social history, and review of systems was completed Review of Systems General: Reports: ROS unobtainable due to mental status (dementia) Const: Denies: fever(s) ENMT: Denies: throat pain, ear or mastoid pain, nasal discharge or nasal congestion Card: Denies: chest pain Resp: Denies: dyspnea, productive cough or non-productive cough GI: Denies: abdominal pain, nausea, vomiting, hematemesis, coffee ground emesis, diarrhea, constipation, bloating, hematochezia or melena : Denies: flank pain, difficulty voiding, dysuria, urinary frequency or urinary urgency Skin/Breast: Denies: rash Meds/Allergies Home Medications and Allergies Home Medications Medication Instructions Recorded Confirmed Last Taken Type melatonin 5 mg capsule 5 mg PO BEDTIME PRN cap 09/24/19 06/07/21 Unknown History pantoprazole 40 mg tablet,delayed 40 mg PO DAILY tab 09/24/19 06/07/21 Unknown History release donepezil 10 mg PO DAILY 06/04/21 06/07/21 Unknown History escitalopram oxalate 10 mg PO DAILY 06/04/21 06/07/21 Unknown History memantine 10 mg PO BID 06/04/21 06/07/21 Unknown History risperidone 0.25 mg PO DAILY 06/04/21 06/07/21 Unknown History risperidone 0.5 mg PO DAILY 06/04/21 06/07/21 Unknown History Allergies Allergy/AdvReac Type Severity Reaction Status Date / Time metronidazole [From Flagyl] Allergy Unknown Verified 06/07/21 06:07 Penicillins Allergy Unknown Verified 06/07/21 06:07 Current Medications Current Medications Generic Name Dose Route Start Last Admin Trade Name Freq PRN Reason Stop Dose Admin Heparin Sodium (Porcine) 5,000 unit 06/07/21 22:18 06/08/21 00:12 Heparin 5,000 Unit/Ml Inj 1 Ml SUBCUT 5,000 unit Q12H TAIRRA Administration Potassium Chloride/Dextrose/Sod Cl 20 meq in 1,000 mls @ 100 mls/hr 06/07/21 22:18 06/08/21 00:12 D5-Ns 0.45% + Kcl 20 Meq IV 100 mls/hr .Q10H TIARRA Administration Memantine 10 mg 06/07/21 22:18 06/08/21 00:13 Memantine 5 Mg Tablet PO 10 mg BID TIARRA Administration Morphine Sulfate 2 mg 06/07/21 22:18 06/08/21 06:05 Morphine 4 Mg/Ml Sdv 1 Ml IVP 2 mg Q4H PRN Administration SEVERE PAIN Risperidone 0.25 mg 06/07/21 22:18 06/08/21 00:13 Risperidone 0.25 Mg Tablet PO 0.25 mg BID TIARRA Administration PFSH Acute PFSH: Medical History 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 Cognitive impairment GERD (gastroesophageal reflux disease) Surgical History H/O knee surgery H/O shoulder surgery H/O: hysterectomy History of cholecystectomy Family History Mother Hypertension Rheumatoid arthritis Father Hypertension Brother Diabetes CAD (coronary artery disease) Sister CAD (coronary artery disease) Social History Smoking and tobacco status: former smoker Alcohol intake: never Other PFSH information: History of factor V Leiden deficiency Vitals/I&O/Wt Last Vital Signs Temp 98.6 F 06/08/21 04:00 Pulse 76 06/08/21 04:00 Resp 16 06/08/21 06:05 BP 138/73 06/08/21 04:00 Pulse Ox 92 06/08/21 04:00 06/07/21 06/07/21 06/08/21 14:59 22:59 06:59 Output Total 300 / 300 Balance -300 / -300 Weight last 48 hrs Weight 171 lb 9 oz Weight 200 lb Physical Exam Narrative: EXAM NARRATIVE: She is alert confused she has palpable pain over the right hip. She has positive logroll on the right. Skin is clear warm feet are in good cap refill calves are supple dorsalis pedis posterior pulses are palpable. She wiggles all digits on both lower extremities. She has no palpable pain in the cervical thoracic or lumbar spine normal station light touch in all upper and lower extremities. Hands warm good cap refill moves all digits of the shoulder hand and elbows. Radial pulses are palpable. HENMT: COMMON NORMALS: normocephalic and atraumatic HEAD & SCALP: normocephalic and atraumatic Resp: COMMON NORMALS: normal respiratory effort Cardio: COMMON NORMALS: regular rate and regular rhythm RATE: regular rate RHYTHM: regular rhythm GI: COMMON NORMALS: Soft to palpation PALPATION: Yes Soft to palpation : COMMON NORMALS: Yes no CVA tenderness BLADDER/KIDNEY EXAM: Yes no CVA tenderness Back/Pelvis: COMMON NORMALS: no CVA tenderness Psych: COMMON NORMALS: cooperative Urinary Catheter Management^: Serna: Cath Placed During This Visit: yes Reason for Continuing Indwelling Catheter: Required Immobilization for Trauma or Surgery or Anesthesia Urinary Catheter Date of Insertion: 06/07/21 Urinary Catheter Time of Insertion: 10:46 A&P Assessment and plan (1) Intertrochanteric fracture of right hip: Await Medical clearance and proceed with intramedullary nail to the right. Status: Acute Coding Level of Care Code Acute Senior Estimator for [facility] Fwd Exam Detailed Diagnoses Intertrochanteric fracture of right hip S72.141A Documented by User: Isidro Poole DO 06/08/21 10:45 Meds/Allergies Home Medications and Allergies Home Medications Medication Instructions Recorded Confirmed Last Taken Type melatonin 5 mg capsule 5 mg PO BEDTIME PRN cap 09/24/19 06/07/21 Unknown History pantoprazole 40 mg tablet,delayed 40 mg PO DAILY tab 09/24/19 06/07/21 Unknown History release donepezil 10 mg PO DAILY 06/04/21 06/07/21 Unknown History escitalopram oxalate 10 mg PO DAILY 06/04/21 06/07/21 Unknown History memantine 10 mg PO BID 06/04/21 06/07/21 Unknown History risperidone 0.25 mg PO DAILY 06/04/21 06/07/21 Unknown History risperidone 0.5 mg PO DAILY 06/04/21 06/07/21 Unknown History Allergies Allergy/AdvReac Type Severity Reaction Status Date / Time metronidazole [From Flagyl] Allergy Unknown Verified 06/07/21 06:07 Penicillins Allergy Unknown Verified 06/07/21 06:07 PFSH Acute PFSH: Medical History 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 Cognitive impairment GERD (gastroesophageal reflux disease) Surgical History H/O knee surgery H/O shoulder surgery H/O: hysterectomy History of cholecystectomy Family History Mother Hypertension Rheumatoid arthritis Father Hypertension Brother Diabetes CAD (coronary artery disease) Sister CAD (coronary artery disease) Social History Smoking and tobacco status: former smoker Alcohol intake: never Physical Exam Urinary Catheter Management^: Serna: Cath Placed During This Visit: no A&P Assessment and plan (1) Intertrochanteric fracture of right hip: pt seen and agree with above Status: Acute Consult Attestations Medical Necessity Statement: per primary service Coding Level of Care Code Acute Senior Estimator for [facility] Fwd Exam Detailed Diagnoses Intertrochanteric fracture of right hip S72.141A
[2021-06-08] MEDS: pantoprazole DR 40 mg Tablet PO (08:13)
[2021-06-08] MEDS: donepezil 5 MG Tablet 10 MG PO (08:14)
[2021-06-08] MEDS: escitalopram 10 mg Tablet PO (08:14)
--- NOTE | 2021-06-08 09:15 | PC.NURSE ---
patient taken off unit by pre-op nurse.
[2021-06-08] MEDS: sodium chloride 0.9% 1,000 ML 30 ML IV (09:31)
--- NOTE | 2021-06-08 09:42 | P.ANESASSM_ITS ---
Pre-Anesthetic Assessment Pre-Anesthetic Assessment: Height/Weight: Height 1.63 m Weight 77.819 kg Temp Pulse Resp BP Pulse Ox 97.7 F 91 20 H 163/70 91 06/08/21 09:20 06/08/21 09:20 06/08/21 09:20 06/08/21 09:20 06/08/21 09:20 Preop Diagnosis: Intertrochanteric hip fracture on the right Proposed Procedure: Operation Date: 06/08/21 11:30 Proposed Procedures p Trochanteric Femoral Nail(Right) - Isidro Poole, Familial anesthetic complications: Daughter denies Was Beta Misa taken within 24 hours: N/A Was Clonidine taken within 24 hours: N/A Social: Social History: No alcohol and No tobacco Exam: Pre-Anes Outpt Exam: clear to auscultation bilaterally (diminished breat h sounds ) and regular rate & rhythm Additional Exam Findings (including area of procedure): Altered mental status, follows commands Airway: Submandibular: WNL Cervical ROM: WNL MP: 2 Dentition: False History/ROS: Other (hx limited due to AMS) Pulmonary: Pulmonary: None reported CV/HEM: CV/HEM: CAD Comments: S/P CABG Prior to injury able to walk up flight of stairs without SOB/CP per daughter Thrombocytopenia Plts 104 Factor 5 Leidin Mutation : : None reported Hepatic: Hepatic: None reported GI: GI: GERD Metabolic: Metabolic: None reported Musc/skel: Comments: Acute fx right femur Osteopenia Neuropsych: Neuropsych: Dementia Anesthetic Plan: ASA status: 3 Anesthesia: General Other: I discussed risk and benefits of anesthesia with patient's daughter on the phone and she g ave consent to proceed today. Witness by pre op RN. Risk of > 500 ml blood los s (7ml/kg in children): No Other Pertinent Information: COVID Positive Meds/Allergies Current Medications: Current Medications Generic Name Dose Route Start Last Admin Trade Name Freq PRN Reason Stop Dose Admin Donepezil HCl 10 mg 06/08/21 09:00 06/08/21 08:14 Donepezil 5 Mg T ablet PO 10 mg DAILY TIARRA Administration Escitalopram Oxala te 10 mg 06/08/21 09:00 06/08/21 08:14 Escitalopram 10 Mg Tablet PO 10 mg DAILY TIARRA Administration Heparin Sodium (Po rcine) 5,000 unit 06/07/21 22:18 06/08/21 00:12 Heparin 5,000 Un it/Ml Inj 1 Ml SUBCUT 5,000 unit Q12H TIARRA Administration Potassium Chloride /Dextrose/Sod Cl 20 meq in 1,000 m ls @ 100 mls/hr 06/07/21 22:18 06/08/21 00:12 D5-Ns 0.45% + Nick l 20 Meq IV 100 mls/hr .Q10H TIARRA Administration Sodium Chloride 1,000 mls @ 30 ml s/hr 06/08/21 09:30 06/08/21 09:31 Sodium Chloride 0.9% IV 06/09/21 09:29 30 mls/hr .Q24H TIARRA Administration Memantine 10 mg 06/07/21 22:18 06/08/21 08:14 Memantine 5 Mg T ablet PO 10 mg BID TIARRA Administration Morphine Sulfate 2 mg 06/07/21 22:18 06/08/21 06:05 Morphine 4 Mg/Ml Sdv 1 Ml IVP 2 mg Q4H PRN Administration SEVERE PAIN Pantoprazole Sodiu m 40 mg 06/08/21 09:00 06/08/21 08:[address] 40 Mg Tablet PO 40 mg DAILY TIARRA Administration Risperidone 0.25 mg 06/07/21 22:18 06/08/21 08:13 Risperidone 0.25 Mg Tablet PO 0.25 mg BID TIARRA Administration PFSH Anesthesia PFSH: Medical History 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 Cognitive impairment GERD (gastroesophageal reflux disease) Surgical History H/O knee surgery H/O shoulder surgery H/O: hysterectomy History of cholecystectomy Family History Mother Hypertension Rheumatoid arthritis Father Hypertension Brother Diabetes CAD (coronary artery disease) Sister CAD (coronary artery disease) Social History Smoking and tobacco status: former smoker Alcohol intake: never Supplemental PFSH Information: History of factor V Leiden deficiency Data Anesthesia CBC & Chem 7: 06/08/21 05:35 06/08/21 05:35 Other Labs: Laboratory Results - last 48 hr 06/07/21 06/07/21 06/07/21 07:51 07:51 07:51 WBC 8.6 RBC 4.84 Hgb 15.2 Hct 43.5 MCV 89.9 MCH 31.4 MCHC 34.9 RDW 12.3 Plt Count 129 L MPV 11.3 H Neut % (Auto) 75.8 Lymph % (Auto) 12.4 [place] % (Auto) 11.2 Eos % (Auto) 0.0 Baso % (Auto) 0.1 Neut # (Auto) 6.51 Lymph # (Auto) 1.1 [place] # (Auto) 1.0 H Eos # (Auto) 0.0 Baso # (Auto) 0.0 Nucleated RBC % (auto) 0 Nucleated RBCs # 0.0 PT 15.40 H INR 1.19 APTT 33.0 Sodium 141 Potassium 3.8 Chloride 102 Carbon Dioxide 26 Anion Gap 16.8 BUN 13 Creatinine 0.6 GFR Calculation Not Reportable Glucose 127 H Calculated Osmolality 294 Calcium 8.7 Total Bilirubin 0.6 AST 54 H ALT 39 H Alkaline Phosphatase 103 Total Protein 6.9 Albumin 3.8 Globulin 3.1 Urine Color Urine Appearance Urine pH Ur Specific [place] Urine Protein Urine Glucose (UA) Urine Ketones Urine Blood Urine Nitrate Urine Bilirubin Urine Urobilinogen Ur Leukocyte Esterase Urine RBC Urine WBC Ur Squamous Epith Cells Amorphous Sediment Urine Bacteria Hyaline Casts Urine Mucus 06/07/21 06/08/21 06/08/21 10:44 05:35 05:35 WBC 6.7 RBC 4.37 Hgb 13.7 Hct 39.9 MCV 91.3 MCH 31.4 MCHC 34.3 RDW 12.4 Plt Count 104 L MPV 11.6 H Neut % (Auto) 69.8 Lymph % (Auto) 18.1 [place] % (Auto) 11.7 Eos % (Auto) 0.0 Baso % (Auto) 0.1 Neut # (Auto) 4.69 Lymph # (Auto) 1.2 [place] # (Auto) 0.8 Eos # (Auto) 0.0 Baso # (Auto) 0.0 Nucleated RBC % (auto) 0 Nucleated RBCs # 0.0 PT INR APTT Sodium 140 Potassium 3.1 L Chloride 104 Carbon Dioxide 24 Anion Gap 15.1 BUN 11 Creatinine 0.4 L GFR Calculation Not Reportable Glucose 126 H Calculated Osmolality 291 Calcium 7.6 L Total Bilirubin 0.6 AST 45 H ALT 29 Alkaline Phosphatase 87 Total Protein 5.9 L Albumin 3.1 L Globulin 2.8 Urine Color Dark yellow Urine Appearance Cloudy Urine pH 5 Ur Specific [place] 1.030 Urine Protein Neg Urine Glucose (UA) Norm Urine Ketones 1+ H Urine Blood Neg Urine Nitrate Negative Urine Bilirubin 1+ H Urine Urobilinogen 4 H Ur Leukocyte Esterase Negative Urine RBC 0-4 H Urine WBC 0-4 H Ur Squamous Epith Cells 0-4 H Amorphous Sediment Not Reportable Urine Bacteria 1+ H Hyaline Casts 0-4 H Urine Mucus 1+ Cardiac Studies: No Data to Display
--- NOTE | 2021-06-08 10:28 | PC.CHAP ---
Pastoral Care Encounter/Spiritual Assessment Type of Contact [] Declined tire fabric impregnating range tender visit [] Patient/Family/Request visit [] Outpatient visit [] Follow-up visit [] Physician referral [] Code/Alert [x] Routine visit [] Staff referral [] Actively dying [] Patient sleeping [] Family support [] [] Out of room [] Palliative care [] [] Receiving care in room [] Pre-surgical visit [] Trauma [] Long length of stay [] ICU visit [x] Other:precaution Relational/Emotional Strength [] Patient feels connected with others/family/visitors/staff [] Distress [] Loneliness/isolation [] Abandonment Spirituality of Patient [] Person of Mary [] Attends Mu-Ism of their Mary [] Believes in Prayer [] Reads Bible or Yazidism materials [] There are Spiritual issues to be addressed Window Trimmer Interventions [] Prayer [] Active listening [] Non-anxious presence [] Spiritual/emotional support [] Crisis/trauma care [] Spiritual counseling [] Bereavement support [] Provided bereavement packet [] Provided Bible/devotional materials [] Provided toy/stuffed animal, coloring book to patient or family member [] Provided Communion [] Anointing/[place] [] Salvation [] Completed spiritual assessment [] Other: Impact on Illness or Injury [] Angry [] Fearful [] Anxious [] Often cries [] Exhaustion [] Unable to work [] Unable to attend hinduism [] Unable to walk/stand [] Unable to read [] Unable to drive [] Unable to eat/drink [] Unable to sleep [] Unable to be with family [] Patient intubated [] Other: Summary Time spent with patient
[2021-06-08] MEDS: clindamycin 900 MG/50 ML PREMIX 100 MG IV ×2 (11:02→18:07)
--- NOTE | 2021-06-08 11:59 | P.OP_ITS ---
Operative Report Date of procedure: June 08, 2021 Pre-op Diagnosis: Intertrochanteric hip fracture on the right Post-op diagnosis: same Procedure Done: 1. Right Intramedullary nail for Intertrochanteric hip fracture Surgeon: Isidro Poole Yeast Distiller: Raheel Sosa Yeast Distiller: The certified surgical technologist, Raheel Sosa, PAC was needed for his expert ise with fractures. He was important and necessary throughout the procedure to complete in a safe and timely manner. He assisted with patient positioning prepping and draping tissue retraction suctioning of the operative field protection of the dural sac and tissue closure Estimated blood loss (mL): 5 Condition: stable Disposition: PACU Procedure: 1. Right Intramedullary nail for Intertrochanteric hip fracture Patient was brought to the operative suite after undergoing anesthesia patient was placed on the fracture table. Fracture was reduced. Patient was then prepped and draped in normal sterile fashion. Skin incision made proximal to the greater trochanter. A starting pin was inserted into the tip the greater trochanter opening drill was then inserted this confirmed on AP and lateral fluoroscopy. The nail was then inserted. A guidewire was then placed up into the center center position of the femoral head. Both on AP and lateral fluoroscopy. A 95 mm lag screw was then inserted and locked in position with a locking bolt proximally. Next the distal locking screw was placed this was a 35 mm locking screw. AP and lateral fluoroscopy ensured that the hardware and fracture were probe position. Wounds were irrigated and closed with Vicryl and hemalatha. Sterile dressings were applied and patient was transferred to the PACU in stable condition.
--- NOTE | 2021-06-08 12:07 | P.PCN_ITS ---
PACU note PACU note: VSS, Good respiratory effort, report to HOT MAN Post-Anesthesia Exam: awake
--- NOTE | 2021-06-08 12:07 | PM.PACU ---
PACU note PACU note: VSS, Good respiratory effort, report to CERTIFIED RETINAL ANGIOGRAPHER Post-Anesthesia Exam: awake
--- NOTE | 2021-06-08 13:06 | PM.PN ---
Documented by User: Lynn Nguyen, [facility] 06/08/21 13:21 Subjective Subjective: Interval history: Mary underwent right hip surgery today. She complains of feeling pain all over her body since being brought back up to [facility] Surg floor. Vitals/I&O/Wt Last Vital Signs Temp 97.7 F 06/08/21 09:20 Pulse 74 06/08/21 09:46 Resp 18 06/08/21 09:46 BP 163/70 06/08/21 09:20 Pulse Ox 95 06/08/21 09:46 06/07/21 06/08/21 06/08/21 22:59 06:59 14:59 Intake Total 50 / 50 Output Total 300 / 300 Balance -300 / -300 50 / 50 Weight last 48 hrs Weight 77.819 kg Weight 90.718 kg Physical Exam Narrative: EXAM NARRATIVE: General: in mild distress, complaining of pain HEENT: Atraumatic normocephalic. Oropharynx clear. Neck: Supple, no lymphadenopathy or thyromegaly Cardiovascular: regular rhythm no murmur Lungs: clear Abdomen: soft with positive bowel sounds. No obvious organomegaly deferred Extremities: right hip wrapped in clean and dry dressing. Skin: no rash Neuro: No obvious focal deficits, able to wiggle right foot and toes Urinary Catheter Management^: Serna: Cath Placed During This Visit: yes Reason for Continuing Indwelling Catheter: Required Immobilization for Trauma or Surgery or Anesthesia Urinary Catheter Date of Insertion: 06/07/21 Urinary Catheter Time of Insertion: 10:46 Data : 06/08/21 05:35 06/08/21 05:35 A&P Additional A&P Information Assessment and plan (1) Closed right hip fracture: Orthopedic surgery consulted and right hip surgery was performed today. Use Lovenox instead of heparin for DVT prophylaxis given patient's thrombocytopenia and to avoid possible HIT Close monitoring of platelets Will need nursing facility placement. This could be difficult considering her positive Covid test. Urinary catheter placement Status: Acute (2) Thrombocytopenia: Continue to monitor closely. Only mild decrease in platelet count this visit Status: Acute (3) Dementia: With history of behaviors. Continue chronic medications. Status: Acute (4) Hypokalemia Potassium 3.1 today. Will supplement with IV potassium. Coding Level of Care Code Acute Software Trainer for Chg [employer] Documented by User: Pepe Red MD 06/08/21 13:25 Subjective Subjective: Interval history: Agree with above. Patient is complaining of some pain at hip fracture repair. Physical Exam Narrative: EXAM NARRATIVE: Agree with above. No changes needed. I examined the patient as well. Urinary Catheter Management^: Serna: Cath Placed During This Visit: no Data : 06/08/21 05:35 06/08/21 05:35 A&P Additional A&P Information Agree with information as noted in the medical students note as well as nursing notes. Will change patient to Lovenox to prevent confusion regarding HIT if heparin is continued to be used. It appears the patient has some element of chronic thrombocytopenia. Remove urinary catheter as soon as possible. Plan on nursing facility placement overall for rehabilitation. Potassium was supplemented IV this morning. Attestations Medical Necessity Statement*: Needs continued hospital stay for close monitoring secondary to hip fracture, status post repair today. Coding Level of Care Code Acute Software Trainer for Wade Youssef
[2021-06-08] MEDS: lidocaine 1% 5 ML in potassium chloride premix 100 ML 25 ML IV (13:23)
--- NOTE | 2021-06-08 15:37 | ANE.PACU2 ---
Inpatient post-anesthesia follow up: Airway intact: Yes Vital signs: Temperature 98.2 F Pulse Rate 72 Respiratory Rate 16 Blood Pressure 146/80 Pulse Oximetry 98 Oxygen Delivery Me thod Room Air Oxygen Flow Rate 2 Fraction of Inspir ed Oxygen Hydration adequate: Yes Nausea and vomiting: No Pain level: 2 Mental status: Baseline
[2021-06-08] MEDS: enoxaparin 40 mg/0.4 mL Syringe SUBCUT (17:10)
--- NOTE | 2021-06-08 20:19 | PC.NURSE ---
Shift report received from Shanel BERGMAN. Patient in bed/awake. Able to state name/. Grimacing present/ PRN administered. Dressing to R hip D/C/I/. 2l NC. IV patent/SL. No other needs noted at this time.
[2021-06-09] VITALS (8 sets, daily range): BP systolic 139–154; BP diastolic 77–89; PULSE 71–92; RESP 16–20; TEMP 36.7–37.3; O2SAT 88–96
--- NOTE | 2021-06-09 00:47 | PC.NURSE ---
Patient in bed/sleeping. No s/s of pain or discomfort. No needs noted at this time.
[2021-06-09] MEDS: morphine 4 mg/mL SDV 1 mL 2 MG IVP (02:52)
[2021-06-09] MEDS: clindamycin 900 MG/50 ML PREMIX 100 MG IV ×2 (02:53→13:40)
[2021-06-09 03:05] LABS: Hematocrit 38.3 % (37.0-47.0); Hemoglobin 12.6 g/dL (11.5-15.3); Lymphocytes # 1.1 10^3/uL (0.8-4.8); Mean Corpuscular HGB Conc 32.9 g/dL (30.0-36.0); Mean Corpuscular Hemoglobin 30.8 pg (28.0-34.0); Mean Corpuscular Volume 93.6 fl (81-99); Mean Platelet Volume 11.6 fL (7.4-10.4); Monocytes # 0.8 10^3/uL (0.2-0.9); Monocytes % 12.9 %; Neutrophils % 68.8 %; Nucleated Red Blood Cells % 0 %; Platelet Count 106 10^3/cmm (130-400); Red Blood Count 4.09 10^6/uL (4.1-5.3); Red Cell Distribution Width 12.8 % (12.1-15.1)
[2021-06-09 03:14] LABS: Anion Gap 13.7 (5-19); Blood Urea Nitrogen 10 mg/dL (8-23); Calcium 7.5 mg/dL (8.5-10.5); Carbon Dioxide 25 mmol/L (22-29); Chloride 107 mmol/L (98-107); Glucose 103 mg/dL (65-115); Magnesium 2.4 mg/dL (1.7-2.3); Osmolality Calculated 293 mOsm/kg (285-295); Potassium 3.7 mmol/L (3.5-5.1); Sodium 142 mmol/L (136-145)
--- NOTE | 2021-06-09 07:54 | PM.PN ---
Subjective Subjective: Interval history: POD 1 Patient resting comfortably. Confused. No obvious distress. Vitals/I&O/Wt Last Vital Signs Temp 99.0 F 06/09/21 07:00 Pulse 77 06/09/21 07:00 Resp 18 06/09/21 07:00 BP 154/78 06/09/21 07:00 Pulse Ox 90 06/09/21 07:00 06/08/21 06/09/21 06/09/21 22:59 06:59 14:59 Intake Total 155 / 1405 50 / 1455 Output Total 150 / 375 300 / 675 Balance 5 / 1030 -250 / 780 Weight last 48 hrs Weight 171 lb 9 oz Physical Exam Narrative: EXAM NARRATIVE: Patient in good general appearance, confused. Hip incision is healing nicely. [place]/sutures were removed Steri-Strips were applied. There is no signs of erythema or drainage no signs of infection. Good motor strength throughout both lower extremities. Fires in all motor groups. Skin is clear warm, feet are warm with good cap refill in all digits. Normal sensation to light touch. Calves are supple, no medial thigh tenderness, negative Homans' sign. No palpable edema peripherally. Urinary Catheter Management^: Serna: Cath Placed During This Visit: yes Reason for Continuing Indwelling Catheter: Required Immobilization for Trauma or Surgery or Anesthesia Urinary Catheter Date of Insertion: 06/07/21 Urinary Catheter Time of Insertion: 10:46 Data : 06/09/21 02:23 06/09/21 02:23 A&P Assessment and plan (1) Intertrochanteric fracture of right hip: Physical therapy to mobilize. Dressing changes to the right hip. Left social media senior associate work for placement. Continue SMI for pulmonary toilet. Status: Acute Attestations Medical Necessity Statement*: defer to medical team Coding Level of Care Code Acute Supervisor Public Health Nursing for Wade Youssef Diagnoses Intertrochanteric fracture of right hip S72.141A
[2021-06-09] MEDS: escitalopram 10 mg Tablet PO (08:55)
[2021-06-09] MEDS: pantoprazole DR 40 mg Tablet PO (08:55)
[2021-06-09] MEDS: risperiDONE 0.25 mg Tablet PO ×2 (08:55→18:21)
[2021-06-09] MEDS: memantine 5 mg tablet 10 MG PO ×2 (08:55→18:21)
[2021-06-09] MEDS: donepezil 5 MG Tablet 10 MG PO (08:55)
--- NOTE | 2021-06-09 08:58 | XR_ITS ---
WS: [id number] Portable AP upright chest, 06/09/2021 Clinical Data: hypoxia Comparison: Portable chest, 06/07/2021. Findings: There is a poor inspiratory effort. There are basilar atelectatic changes over the left mallory phragm which is mildly elevated. No nodules, masses or effusions are seen. The pulmonary vascularity is normal. No pneumothorax is seen. The aortic arch and descending thoracic aorta show calcification and tortuosity. Midline sternotomy sutures and mediastinal clips are present. There are left upper qu adrant surgical clips. There is an orthopedic anchor in the right humeral head. 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 XR/XR chest 1V portable [id number] Impression: 1. Poor inspiratory effort with probable left lower lobe atelectasis. 2. Atherosclerosis.
--- NOTE | 2021-06-09 09:59 | P.PN_ITS ---
Subjective Subjective: Interval history: Sleepy this morning. On 3 L of oxygen. Temperature 99. Responsive, without many complaints currently. Medications: Reviewed: Yes Vitals/I&O/Wt Last Vital Signs Temp 99.0 F 06/09/21 07:00 Pulse 77 06/09/21 07:00 Resp 18 06/09/21 07:00 BP 154/78 06/09/21 07:00 Pulse Ox 90 06/09/21 07:00 06/08/21 06/09/21 06/09/21 22:59 06:59 14:59 Intake Total 155 / 1405 50 / 1455 Output Total 150 / 375 300 / 675 Balance 5 / 1030 -250 / 780 Weight last 48 hrs Weight 77.819 kg Physical Exam Narrative: EXAM NARRATIVE: General exam no distress, sleepy Neck is supple Cardiovascular regular rate and rhythm without murmur Lungs clear Abdomen soft Extremities no cyanosis clubbing or edema, dressing clean and dry Urinary Catheter Management^: Serna: Cath Placed During This Visit: yes Reason for Continuing Indwelling Catheter: Required Immobilization for Trauma or Surgery or Anesthesia Urinary Catheter Date of Insertion: 06/07/21 Urinary Catheter Time of Insertion: 10:46 Data : 06/09/21 02:23 06/09/21 02:23 A&P Assessment and plan (1) Closed right hip fracture: Postoperative day #1 Doing well from a postsurgical standpoint Will need shelter facility placement Status: Acute (2) Thrombocytopenia: Stable currently Status: Acute (3) Dementia: With history of behaviors. Continue chronic medications. Status: Acute Additional A&P Information Covid positive. She is requiring oxygen now. Will check chest x-ray. Initiate remdesivir and dexamethasone. If improves and can be moved back to room air this should not slow down potential discharge. Attestations Medical Necessity Statement*: Needs continued hospitalization for close monitoring following hip fracture surgery as well as treatment of Covid. Coding Level of Care Code Acute Executive Chairman Of The Board for Wade Youssef Diagnoses Closed right hip fracture S72.001A Thrombocytopenia D69.6 Dementia F03.90
[2021-06-09] MEDS: remdesivir 200 MG in sodium chloride 0.9% (100 ml) 60 ML 100 MG IV (10:26)
[2021-06-09] MEDS: dexamethasone 10 mg/mL INJ 6 MG IVP (10:26)
[2021-06-09] MEDS: acetaminophen 325 mg Tablet 650 MG PO (14:16)
[2021-06-09] MEDS: ipratropium-albuterol 3 mL Neb INHALATION ×2 (14:35→21:31)
[2021-06-09] MEDS: enoxaparin 40 mg/0.4 mL Syringe SUBCUT (18:21)
[2021-06-09] MEDS: sodium chloride 0.9% 1,000 ML 50 ML IV (21:49)
[2021-06-10] VITALS (14 sets, daily range): BP systolic 121–146; BP diastolic 69–76; PULSE 63–81; RESP 16–20; TEMP 36.7–36.9; O2SAT 89–97
[2021-06-10] MEDS: ipratropium-albuterol 3 mL Neb INHALATION ×3 (02:49→21:11)
[2021-06-10 03:28] LABS: Basophils % 0.2 %; Hematocrit 38.2 % (37.0-47.0); Hemoglobin 12.2 g/dL (11.5-15.3); Lymphocytes # 0.8 10^3/uL (0.8-4.8); Lymphocytes % 15.7 %; Mean Corpuscular HGB Conc 31.9 g/dL (30.0-36.0); Mean Corpuscular Hemoglobin 30.4 pg (28.0-34.0); Mean Corpuscular Volume 95.3 fl (81-99); Mean Platelet Volume 11.5 fL (7.4-10.4); Monocytes # 0.6 10^3/uL (0.2-0.9); Monocytes % 11.6 %; Neutrophils # 3.64 10^3/uL (1.8-7.7); Neutrophils % 71.7 %; Nucleated Red Blood Cells % 0 %; Platelet Count 106 10^3/cmm (130-400); Red Blood Count 4.01 10^6/uL (4.1-5.3); Red Cell Distribution Width 12.5 % (12.1-15.1); White Blood Count 5.1 10^3/uL (4.0-10.0)
[2021-06-10 03:45] LABS: Alanine Aminotransferase 24 U/L (0-33); Albumin Level 2.7 g/dL (3.5-5.2); Alkaline Phosphatase 81 IU/L (35-105); Anion Gap 14.7 (5-19); Aspartate Amino Transferase 34 U/L (0-32); Blood Urea Nitrogen 15 mg/dL (8-23); Calcium 8.7 mg/dL (8.5-10.5); Carbon Dioxide 24 mmol/L (22-29); Chloride 108 mmol/L (98-107); Globulin 2.8 g/dL (1.3-4.6); Glucose 105 mg/dL (65-115); Osmolality Calculated 297 mOsm/kg (285-295); Potassium 3.7 mmol/L (3.5-5.1); Sodium 143 mmol/L (136-145); Total Bilirubin 0.6 mg/dL (0.15-1.2); Total Protein 5.5 g/dL (6.6-8.7)
--- NOTE | 2021-06-10 06:14 | PC.NURSE ---
Around 0615: Bladder scanned patient, 223 ml shown on scanner. Patient refuses to attempt to void at this time.
[2021-06-10] MEDS: remdesivir 100 MG in sodium chloride 0.9% (100 ml) 80 ML IV (06:19)
[2021-06-10] MEDS: escitalopram 10 mg Tablet PO (08:11)
[2021-06-10] MEDS: dexamethasone 10 mg/mL INJ 6 MG IVP (08:11)
[2021-06-10] MEDS: pantoprazole DR 40 mg Tablet PO (08:11)
[2021-06-10] MEDS: memantine 5 mg tablet 10 MG PO ×2 (08:11→16:57)
[2021-06-10] MEDS: donepezil 5 MG Tablet 10 MG PO (08:11)
--- NOTE | 2021-06-10 08:55 | P.PN_ITS ---
Subjective Subjective: Interval history: Mary is awake. She reports she hurts all over. No other concerns. Denies difficulty breathing. Medical student saw her earlier and she was coughing quite a bit. Medications: Reviewed: Yes Vitals/I&O/Wt Last Vital Signs Temp 98.3 F 06/10/21 07:00 Pulse 74 06/10/21 08:54 Resp 16 06/10/21 08:54 BP 129/74 06/10/21 07:00 Pulse Ox 92 06/10/21 08:54 06/09/21 06/10/21 06/10/21 22:59 06:59 14:59 Intake Total 340 / 810 120 / 930 80 / 80 Output Total 150 / 150 50 / 200 Balance 190 / 660 70 / 730 80 / 80 Physical Exam Narrative: EXAM NARRATIVE: General exam no distress, conversant Neck is supple Cardiovascular regular rate and rhythm without murmur Lungs clear currently. No crackles Abdomen soft Extremities no cyanosis clubbing or edema, dressing clean and dry Urinary Catheter Management^: Serna: Cath Placed During This Visit: yes, but has since been removed by the nurse Reason for Continuing Indwelling Catheter: Decision to DC Catheter Urinary Catheter Date of Insertion: 06/07/21 Urinary Catheter Time of Insertion: 10:46 Date Urinary Catheter Removed: 06/09/21 Time Urinary Catheter Discontinued: 06:00 Data : 06/10/21 02:34 06/10/21 02:34 A&P Assessment and plan (1) Closed right hip fracture: Postoperative day #2 Doing well from a postsurgical standpoint Will need correction facility placement Status: Acute (2) Thrombocytopenia: Stable currently Status: Acute (3) Dementia: With history of behaviors. Lethargic yesterday and Risperdal discontinued Status: Acute Additional A&P Information Covid positive. She is requiring oxygen now. Chest x-ray showed likely at electasis. Remdesivir and dexamethasone initiated. If she shows clear improvement regarding oxygen requirement could transition to correction facility. From my understanding she has been accepted. Attestations Medical Necessity Statement*: Needs continued hospitalization for treatment of Covid 19 pneumonia, which is severe as she is requiring oxygen. Coding Level of Care Code Acute Parking Patroller for [facility] Diagnoses Closed right hip fracture S72.001A Thrombocytopenia D69.6 Dementia F03.90
--- NOTE | 2021-06-10 11:31 | PC.SOCIAL ---
IMM update IMM updated with patient's daughter. Verbalized an understanding. Initialled, dated, timed, and placed in chart.
--- NOTE | 2021-06-10 13:38 | PC.CHAP ---
Pastoral Care Encounter/Spiritual Assessment Type of Contact [] Declined director of market research visit [] Patient/Family/Request visit [] Outpatient visit [] Follow-up visit [] Physician referral [] Code/Alert [] Routine visit [] Staff referral [] Actively dying [] Patient sleeping [] Family support [] [] Out of room [] Palliative care [] [] Receiving care in room [] Pre-surgical visit [] Trauma [] Long length of stay [] ICU visit [xx] Other: Quarantined Relational/Emotional Strength [] Patient feels connected with others/family/visitors/staff [] Distress [] Loneliness/isolation [] Abandonment Spirituality of Patient [] Person of Mary [] Attends Synagogue of their Mary [] Believes in Prayer [] Reads Bible or Muslim materials [] There are Spiritual issues to be addressed [place] Sander Interventions [] Prayer [] Active listening [] Non-anxious presence [] Spiritual/emotional support [] Crisis/trauma care [] Spiritual counseling [] Bereavement support [] Provided bereavement packet [] Provided Bible/devotional materials [] Provided toy/stuffed animal, coloring book to patient or family member [] Provided Communion [] Anointing/[place] [] Salvation [] Completed spiritual assessment [] Other: Impact on Illness or Injury [] Angry [] Fearful [] Anxious [] Often cries [] Exhaustion [] Unable to work [] Unable to attend episcopal [] Unable to walk/stand [] Unable to read [] Unable to drive [] Unable to eat/drink [] Unable to sleep [] Unable to be with family [] Patient intubated [] Other: Summary Time spent with patient
[2021-06-10] MEDS: enoxaparin 40 mg/0.4 mL Syringe SUBCUT (16:58)
[2021-06-11] VITALS (16 sets, daily range): BP systolic 120–177; BP diastolic 69–88; PULSE 71–83; RESP 16–18; TEMP 36.6–37.3; O2SAT 93–98
[2021-06-11] MEDS: ipratropium-albuterol 3 mL Neb INHALATION ×3 (04:19→20:31)
[2021-06-11] MEDS: remdesivir 100 MG in sodium chloride 0.9% (100 ml) 80 ML IV (06:04)
[2021-06-11 07:11] LABS: Hematocrit 35.9 % (37.0-47.0); Lymphocytes # 0.9 10^3/uL (0.8-4.8); Lymphocytes % 14.9 %; Mean Corpuscular HGB Conc 33.4 g/dL (30.0-36.0); Mean Corpuscular Volume 92.8 fl (81-99); Mean Platelet Volume 11.2 fL (7.4-10.4); Monocytes # 0.7 10^3/uL (0.2-0.9); Monocytes % 11.8 %; Neutrophils # 4.38 10^3/uL (1.8-7.7); Neutrophils % 72.5 %; Nucleated Red Blood Cells % 0 %; Platelet Count 159 10^3/cmm (130-400); Red Blood Count 3.87 10^6/uL (4.1-5.3); Red Cell Distribution Width 12.5 % (12.1-15.1)
[2021-06-11 07:36] LABS: Alanine Aminotransferase 21 U/L (0-33); Albumin Level 2.9 g/dL (3.5-5.2); Alkaline Phosphatase 71 IU/L (35-105); Anion Gap 14.3 (5-19); Aspartate Amino Transferase 27 U/L (0-32); Blood Urea Nitrogen 17 mg/dL (8-23); Calcium 8.3 mg/dL (8.5-10.5); Carbon Dioxide 25 mmol/L (22-29); Chloride 108 mmol/L (98-107); Globulin 2.6 g/dL (1.3-4.6); Glucose 106 mg/dL (65-115); Osmolality Calculated 300 mOsm/kg (285-295); Potassium 3.3 mmol/L (3.5-5.1); Sodium 144 mmol/L (136-145); Total Bilirubin 0.6 mg/dL (0.15-1.2); Total Protein 5.5 g/dL (6.6-8.7)
[2021-06-11] MEDS: escitalopram 10 mg Tablet PO (09:09)
[2021-06-11] MEDS: memantine 5 mg tablet 10 MG PO ×2 (09:09→17:08)
[2021-06-11] MEDS: donepezil 5 MG Tablet 10 MG PO (09:09)
[2021-06-11] MEDS: pantoprazole DR 40 mg Tablet PO (09:09)
[2021-06-11] MEDS: dexamethasone 10 mg/mL INJ 6 MG IVP (09:10)
--- NOTE | 2021-06-11 10:36 | P.PN_ITS ---
Subjective Subjective: Interval history: This morning when I evaluated the patient, she was wrapped up in multiple layers of blankets, she did not endorse any shortness of breath, chest pain, or abdominal pain, she is oriented to herself, she is on 2 L of nasal cannula does not seem to be in any active distress, no conversational dyspnea When I asked her where she from she was not able to answer however she does not have any active strokelike symptoms, she does seem to have underlying dementia Patient was able to tell me that she is using bedside commode Vitals/I&O/Wt Last Vital Signs Temp 97.9 F 06/11/21 08:14 Pulse 80 06/11/21 09:05 Resp 16 06/11/21 09:05 BP 159/84 06/11/21 08:14 Pulse Ox 96 06/11/21 09:05 06/10/21 06/11/21 06/11/21 22:59 06:59 14:59 Intake Total 1120 / 1800 130 / 1930 250 / 250 Output Total 520 / 520 Balance 1120 / 1800 -390 / 1410 250 / 250 Physical Exam Narrative: EXAM NARRATIVE: Patient was in her recliner Saturating well on 2 L nasal cannula No active conversational dyspnea Nonfocal exam Seems to have dementia, oriented to herself Extremely dehydrated with dry Lips I offered her a glass of water which she drank without any signs of aspiration No acute respite distress nonfocal exam No audible stridor or wheezing No signs of edema Systolic murmur appreciated grade 2/6 S1, S2 Urinary Catheter Management^: Serna: Cath Placed During This Visit: yes, but has since been removed by the nurse Reason for Continuing Indwelling Catheter: Decision to DC Catheter Urinary Catheter Date of Insertion: 06/07/21 Urinary Catheter Time of Insertion: 10:46 Date Urinary Catheter Removed: 06/09/21 Time Urinary Catheter Discontinued: 06:00 Data : 06/11/21 06:52 06/11/21 06:52 A&P Assessment and plan (1) COVID-19: Status: Acute (2) Intertrochanteric fracture of right hip: Status: Acute (3) Thrombocytopenia: Status: Acute (4) Dementia: Status: Acute Additional A&P Information Postoperative day 3 status post intervention right hip fracture Hypoxia related to COVID-19 no signs of respiratory failure Patient is oriented to herself with underlying dementia no focal deficit Extremely dehydrated with dry cracked lips Risperidone was discontinued yesterday for her lethargy Thrombocytopenia improved, platelets 159 She will be going to [facility] on Sunday, her O2 saturation stays normal at rest, will request home O2 evaluation today Patient has dementia, she is listed as full code Regular diet She is getting Lovenox DVT prophylaxis Continue memantine and Aricept Attestations Medical Necessity Statement*: continue med management Time Spent in Patient Care: less than 15 minutes Coding Level of Care Code Acute Metal Furrer for [facility] Fwd Diagnoses COVID-19 U07.1 Intertrochanteric fracture of right hip S72.141A Thrombocytopenia D69.6 Dementia F03.90
--- NOTE | 2021-06-11 10:54 | PC.NURSE ---
Patient's son Valentino called who is notnon the HIPPA form. Patient states yes she has a son Valentino. Updated Valentino we are awaiting placement. Valentino wants the DR to call him because he does not want his mother to have Remdesivir. Mariana Randle wants her to have Ivermectin. Left Dr. aGmble a message with his name and number for him to call.
--- NOTE | 2021-06-11 11:01 | PC.NURSE ---
Valentino's phone number is [phone]
[2021-06-11] MEDS: potassium chloride ER 20 mEq Tablet 40 MEQ PO (15:40)
[2021-06-11] MEDS: enoxaparin 40 mg/0.4 mL Syringe SUBCUT (17:08)
[2021-06-11] MEDS: acetaminophen 325 mg Tablet 650 MG PO (17:51)
--- NOTE | 2021-06-11 18:56 | PC.NURSE ---
Report to shift production associate at this time.
[2021-06-11] MEDS: oxyCODONE 5 mg IR Tab/Cap PO (23:47)
[2021-06-12] VITALS (9 sets, daily range): BP systolic 131–183; BP diastolic 72–95; PULSE 62–84; RESP 15–18; TEMP 36.7–37.1; O2SAT 91–98
--- NOTE | 2021-06-12 02:00 | PC.NURSE ---
Patient was complaining about it hurting so bad and that she could not void; she was placed on bedpan and was not able to void. Bladder scanned and made Dr. Dasilva aware. Orders for a 1x catheter placement was ordered and 450 removed.
[2021-06-12] MEDS: ipratropium-albuterol 3 mL Neb INHALATION ×2 (03:08→08:17)
[2021-06-12] MEDS: remdesivir 100 MG in sodium chloride 0.9% (100 ml) 80 ML IV (05:47)
[2021-06-12] MEDS: memantine 5 mg tablet 10 MG PO (08:21)
[2021-06-12] MEDS: dexamethasone 10 mg/mL INJ 6 MG IVP (08:21)
[2021-06-12] MEDS: pantoprazole DR 40 mg Tablet PO (08:21)
[2021-06-12] MEDS: escitalopram 10 mg Tablet PO (08:21)
[2021-06-12] MEDS: donepezil 5 MG Tablet 10 MG PO (08:21)
--- NOTE | 2021-06-12 10:19 | P.DS_ITS ---
Discharge Providers Date of Admission: 06/07/21 13:47 Date of Discharge: June 12, 2021 Attending Provider at Admission: Pepe Red MD Attending Provider at Discharge: Valeria Gamble MD Primary Care Provider: Ana Ríos MD Diagnoses at Discharge Discharge Diagnosis (1) COVID-19: Status: Acute (2) Intertrochanteric fracture of right hip: Status: Acute (3) Thrombocytopenia: Status: Acute (4) Dementia: Status: Acute Reason for Visit Reason for Visit: FALL Hospital Course Hospital Course 80-year-old female presented to the ER after experiencing a fall at home. She has history of COPD factor V Leyden mutation, history of CABG and dementia. She was diagnosed with COVID via PCR test on June 04, she was not requiring oxygen at that time. She was admitted on 06/07, status post procedure right intramedullary nail for anterior trochanteric hip fracture on 06/[address] Poole. I took over her care over the weekend, she was requiring 2 L of oxygen at rest, she will go to [facility]. She was given remdesivir 2-3 doses along steroids. Son was updated over the weekend. He had questions regarding ivermectin. She will be discharged on aspirin 30-day regimen for DVT prophylaxis, albuterol inhaler, bowel regimen, she will obtain urine on Sunday and acquired straight cath overnight, however she was able to void in the morning on her own, added oxybutynin for bladder spasms She has dementia, not a reliable historian however at the time of discharge she was able to tell me her name, date of , she is able to tell me that she is in the hospital however does not know the name Continue dementia medications, held risperidone secondary to fatigue and lethargy. Physical Exam Narrative: EXAM NARRATIVE: Patient was laying supine comfortably in her bed Saturating well on 2 L nasal cannula Nurse aide was feeding her breakfast Bilateral breath sounds no adventitious rhonchi or crackles Abdomen soft No signs of edema Nonfocal neuro exam Frail elderly female S1, S2 grade 2 systolic murmur appreciated Urinary Catheter Management^: Serna: Cath Placed During This Visit: yes, but has since been removed by the nurse Reason for Continuing Indwelling Catheter: Decision to DC Catheter Urinary Catheter Date of Insertion: 06/07/21 Urinary Catheter Time of Insertion: 10:46 Date Urinary Catheter Removed: 06/09/21 Time Urinary Catheter Discontinued: 06:00 Discharge Data Data Completed and Pending: Completed Studies During Hospitalization Category Date Time Status XR cervical spine 3V* [id number] Stat Exams 06/07/21 07:14 Completed XR chest 1V megan ble [id number] Routine Exams 06/09/21 08:58 Completed XR chest 1V megan ble [id number] Stat Exams 06/07/21 07:27 Completed XR hip RT 2-3V wo /w pel* [id number] Rout ine Exams 06/08/21 Completed XR hip RT 2-3V wo /w pel* [id number] Stat Exams 06/07/21 06:37 Completed Vitals: Last Vital Signs Temp 98.3 F 06/12/21 08:21 Pulse 84 06/12/21 08:29 Resp 16 06/12/21 08:29 BP 183/80 06/12/21 08:21 Pulse Ox 97 06/12/21 08:29 Discharge Plan Discharge Patient Disposition: Xfer SNF Condition: Stable Prescriptions: New oxycodone 5 mg tablet 5 mg PO Q8H Qty: 20 RF: 0 Senna-S 8.6-50 mg tablet 1 tab-cap PO BID PRN (Reason: constipation) Qty: 20 RF: 0 albuterol sulfate 90 mcg/actuation HFA aerosol inhaler 2 inh inhalation Q6H PRN (Reason: shortness of breath or wheezing) Qty: 8.5 RF: 0 oxybutynin chloride 5 mg tablet 5 mg PO DAILY PRN (Reason: bladder spasms) Qty: 20 RF: 0 aspirin 325 mg capsule 325 mg PO DAILY Qty: 30 RF: 0 Continued pantoprazole 40 mg tablet,delayed release (DR/EC) 40 mg PO DAILY RF: 0 melatonin 5 mg capsule 5 mg PO BEDTIME PRN (Reason: Sleep) RF: 0 donepezil 10 mg tablet 10 mg PO DAILY RF: 0 escitalopram oxalate 10 mg tablet 10 mg PO DAILY RF: 0 memantine 10 mg tablet 10 mg PO BID RF: 0 Discontinued risperidone 0.25 mg tablet 0.25 mg PO DAILY RF: 0 risperidone 0.5 mg tablet 0.5 mg PO DAILY RF: 0 Discharge Orders: Discharge Order (Routine); Ordered 06/12/21 Ordered By: Valeria Gamble Referrals: Isidro Poole, [Physician] - 2 weeks Discharge Diet: Regular Patient Instructions: Oxycodone/Acetaminophen (By mouth), Albuterol (By breathing), Aspirin (By mouth), COVID-19 (Coronavirus Disease 2019) (GEN) Activity Restrictions/Additional Instructions: You are being discharged from the hospital today during which time you have been under the care of Dr Poole. You had a Right Intertrochanteric hip fracture. You were treated for this injury with Right hip nail. You may resume you normal diet (including any special diets as directed by your primary doctor) as well as your home medications. You should follow up with you primary doctor if you have any questions regarding medication you took prior to your stay in the hospital. You may take your pain medication as prescribed. After the first few days, take your pain medication as needed. Do not drive or drink alcohol while taking your pain medication. Your injury may increase your risk of developing a blood clot,or DVT, in your arm or leg. This could potentially dislodge and travel to your lungs and become a life threatening condition called apulmonary embolus,or PE. You have been prescribed lovenox or Aspirin to be taken to prevent this. Frequent movement of the legs will also help prevent this from occurring. If you develop any new or worsening cough, chestpain, bloody sputum or shortness of breath, call 911 or go to the EmergencyRoom. Always keep your surgical incision/dressing clean and dry. If you experience increasing pain at your incision site, redness, swelling, increasing discharge, foul odors, or fevers (greater than 100.4), night sweats or chills you should call the office at the above number. If you feel this is an emergency you should be evaluated in the Emergency Department of a nearby hospital. Orthopedic Patient Instructions Summary: Weight Bearing: WBAT Activity: as tolerated. Diet: regular. Wound Care: Keep dressing clean and dry. change as needed Anticoagulation: lovenox or ASA for 30 days Pain Medication: Take only as needed. Ice, rest and elevation will be of great benefit. Please plan to follow-up amisha Poole in 2 weeks. You will need to call the clinic [phone] to schedule this visit. Thank you far allowing me to participate in your care. Do not hesitate to call the office with any questions or concerns. Discharge Attestations Time Spent in Discharge Care*: less than 30 min Quality Metrics Clinical Quality Measures During this hospital stay, did patient experience: None Coding Level of Care Code Acute [facility] note Diagnoses COVID-19 U07.1 Intertrochanteric fracture of right hip S72.141A Thrombocytopenia D69.6 Dementia F03.90
[2021-06-12] MEDS: acetaminophen 325 mg Tablet 650 MG PO (10:31)
--- NOTE | 2021-06-12 11:11 | PC.NURSE ---
Report called to Alysha ESPANA at [place] at this time.
--- NOTE | 2021-06-12 11:19 | PM.PN ---
Vitals/I&O/Wt Last Vital Signs Temp 98.3 F 06/12/21 08:21 Pulse 84 06/12/21 08:29 Resp 16 06/12/21 08:29 BP 183/80 06/12/21 08:21 Pulse Ox 97 06/12/21 08:29 06/11/21 06/12/21 06/12/21 22:59 06:59 14:59 Intake Total 120 / 730 440 / 440 Output Total 350 / 650 400 / 1050 300 / 300 Balance -230 / 80 -400 / -320 140 / 140 Physical Exam Urinary Catheter Management^: Serna: Cath Placed During This Visit: yes, but has since been removed by the nurse Reason for Continuing Indwelling Catheter: Decision to DC Catheter Urinary Catheter Date of Insertion: 06/07/21 Urinary Catheter Time of Insertion: 10:46 Date Urinary Catheter Removed: 06/09/21 Time Urinary Catheter Discontinued: 06:00 Data : 06/11/21 06:52 06/11/21 06:52 A&P Assessment and plan (1) Encounter for postoperative care: discussed with Dr. Tello family DNR status. Removing the prosthesis and placing a ement spacer followed by revison hip surgery. Will discuss with family if this is an option. Pt will have echo tomorrow. 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
--- NOTE | 2021-06-12 12:56 | PC.NURSE ---
Patient assisted to EMS stretcher to be transported to [facility]
--- NOTE | 2021-06-12 15:27 | PC.SOCIAL ---
IMM UPDATED IMM initialed and dated and copy given to patient
--- NOTE | 2021-06-12 15:28 | PC.SOCIAL ---
IMM UPDATED IMM initialed and dated and copy given to patient
--- NOTE | 2021-06-12 19:39 | PC.NURSE ---
late entry arora catheter removed per order /06/08/21 at 0687
== END 2021-06-12 12:55 | disposition skilled nursing facility (03) | DRG 480 ==
LOC: ER 09:01 → ER IP 17:56 → MEDSURG 18:46
PROVIDERS: Orthopaedic Surgery; Admitting Provider Internal Medicine; Emergency Provider Family Medicine; PCP Internal Medicine; Visit Provider Internal Medicine
PROC: 0QS606Z Reposition Right Upper Femur with Intramedullary Internal Fixation Device, Open Approach (ICD-10-PCS; CPT 27245; principal; 2021-06-08 11:20)
DX: S72.141A Displaced intertrochanteric fracture of right femur, initial encounter for closed fracture (principal); U07.1 COVID-19; D68.51 Activated protein C resistance; W19.XXXA Unspecified fall, initial encounter; F03.90 Unspecified dementia, unspecified severity, without behavioral disturbance, psychotic disturbance, mood disturbance, and anxiety; I25.10 Atherosclerotic heart disease of native coronary artery without angina pectoris; Z95.1 Presence of aortocoronary bypass graft; K21.9 Gastro-esophageal reflux disease without esophagitis; Z87.891 Personal history of nicotine dependence; D69.6 Thrombocytopenia, unspecified; J44.9 Chronic obstructive pulmonary disease, unspecified; F32.A Depression, unspecified; K59.00 Constipation, unspecified; E87.6 Hypokalemia; Z87.440 Personal history of urinary (tract) infections
CPT/HCPCS: 12345; 36415; 36600; 51702; 71045; 72040; 73502; 76000; 80048; 80051; 80053; 81001; 81003; 82330; 82550; 82805; 83735; 84484; 85025; 85610; 85730; 87040; 87426; 87635; 93005; 94640; 96365; 96372; 96374; 97110; 97162; 97167; 97530; 97535; 99284; 99285; C1713; J0696; J1100; J1644; J1650; J2270; J2405; J2704; J3010; J3480; J3490; J7030; J7040

== ENCOUNTER 2021-06-23 10:44 | Inpatient (IN) | payer MEDICARE, SELFPAY ==
[2021-06-23] VITALS (21 sets, daily range): BP systolic 109–170; BP diastolic 61–91; PULSE 86–91; RESP 18–21; TEMP 36.2–36.9; O2SAT 96–100; BMI 30.9; BMI 27.7
--- NOTE | 2021-06-23 11:06 | ECG_ITS ---
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 Measurements Intervals [place] Rate: 86 P: 64 CA: 201 QRS: -24 QRSD: 86 T: 75 QT: 390 QTc: 468 Interpretive Statements SINUS RHYTHM INFERIOR MYOCARDIAL INFARCTION , OF INDETERMINATE AGE [40+ ms Q WAVE AND/OR ST/T ABNORMALITY IN II/aVF] ANTEROLATERAL MYOCARDIAL INFARCTION , OF INDETERMINATE AGE [40+ ms Q WAVE IN I/aVL/V3-V6] Compared to ECG 06/07/2021 09:25:10 Left-axis deviation no longer present Myocardial infarct finding still present Electronically Signed On 06-23-2021 19:15:01 WEB[employer] MESSAGE BROKER DEVELOPER by Jeanne Caruso M.D. [id number]
--- NOTE | 2021-06-23 11:11 | CT_ITS ---
WS: [id number] CT HEAD NONCONTRAST HISTORY: altered mental status TECHNIQUE: Contiguous axial imaging performed through the brain in 2.5 mm imaging. Bone and soft tiss ue windows. Sagittal and coronal reformats reviewed. All CT scans at [facility] use at least one of these dose optimization techniques: automated exposure control; mA and/or kV adjustment per pa tient size (includes targeted exams where dose is matched to clinical indication); or iterative recon struction. DLP: 850.31 mGy.cm COMPARISON: 11/07/2019 No acute intracranial hemorrhage, midline shift or mass effect. Moderate atrophy noted bilaterally. Mild chronic microvascular ischemic disease. There is also modera te bilateral cerebellar atrophy. Lacunar infarcts in the external capsules. There are small lacunar i nfarcts in the anterior limbs of internal capsules and the LEFT caudate head. Small lacunar infarct i n the RIGHT caudate body was better seen on the prior exam. Ventricles: Normal size with no hydrocephalus. No inferior displacement of the cerebellar tonsils. Paranasal sinuses: Small amount mucoperiosteal thickening in the posterior sphenoid sinuses. Mastoid air cells: Well pneumatized. Calvarium and scalp: Hyperostosis frontalis interna. CT/CT head wo con* [id number] IMPRESSION: 1. No acute intracranial hemorrhage or edema. 2. Moderate cerebral and cerebellar atrophy with numerous small lacunar infarc ts and chronic ischemic disease.
--- NOTE | 2021-06-23 11:12 | XR_ITS ---
WS: [id number] Exam: XR chest 1V portable [id number] Date/Time of Exam: 06/23/2021 11:16 AM Reason For Exam: altered mental status Comparison 06/09/2021. The lungs are hyperinflated and clear. Heart size is normal. The mediastinum is not widened. Signs of previous CABG surgery. Anchoring screw in the right humeral head. DJD of the left glenohumeral joint . Surgical clips in the upper right and left abdomen. XR/XR chest 1V portable [id number] IMPRESSION: 1. Pulmonary hyperinflation. No acute process noted.
--- NOTE | 2021-06-23 12:11 | ED_ITS ---
HPI - General Adult General: Chief complaint: General Medical Stated complaint: CHANGE IN MENTAL STATUS Time Seen by Provider: 06/23/21 10:48 Source: patient Mode of arrival: EMS Limitations: other (Mild dementia.) History of Present Illness: HPI narrative: Patient was [facility] for altered mental status. Patient is awake alert and confused. However, patient does have a history of Alzheimer's dementia. Patient was just released from the hospital approximately 10 days ago after being admitted for right hip surgery and COVID infection. Patient with documented history of dementia. She is a full code by her [facility] paperwork. She denies any particular pain. She states she aches all over. She denies any abdominal pain or dysuria. She denies any cough. Onset (ago): unknown Quality: aching Associated symptoms: Deny chest pain, dyspnea, headache(s), nausea, rash, palpitations or vomiting Review of Systems General: Reports: Other (Poor historian due to dementia) Const: Reports: body aches; Denies: fever(s) or chills Eyes: Denies: change in vision ENMT: Denies: throat pain Card: Denies: chest pain or palpitations Resp: Denies: dyspnea, productive cough or wheezing GI: Denies: abdominal pain, nausea or vomiting : Denies: flank pain Musc: Reports: extremity swelling; Denies: neck pain, back pain or extremity pain Skin/Breast: Denies: rash or pruritus Neuro: Denies: headache(s) or numbness in extremities Psych: Denies: anxiety Eliel/Lymph: Denies: enlarged lymph nodes PFSH ED PFSH: Medical History 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 Cognitive impairment COVID-19 Dementia Encounter for postoperative care GERD (gastroesophageal reflux disease) Migraine Surgical History H/O colonoscopy 09/19/13 - POLYPS H/O foot surgery H/O knee surgery H/O shoulder surgery H/O: hysterectomy History of cholecystectomy History of esophagogastroduodenoscopy (EGD) 09/19/13 Family History Mother Hypertension Rheumatoid arthritis Father Hypertension Brother Diabetes CAD (coronary artery disease) Sister CAD (coronary artery disease) Social History Smoking and tobacco status: former smoker Alcohol intake: never Physical Exam Const: COMMON NORMALS: no acute distress, no limitations and well nourished GENERAL APPEARANCE: cooperative and comfortable NUTRITIONAL APPEARANCE: obese ORIENTATION/CONSCIOUSNESS: Yes oriented to person and Yes oriented to place HENMT: COMMON NORMALS: normocephalic and atraumatic HEAD & SCALP: normocephalic and atraumatic FACE & SINUS: normal facial exam OTHER: Poor dentition Eye: COMMON NORMALS: Equal, round and reactive pupils present and EOMs intact bilaterally PUPIL: Yes Equal, round and reactive pupils present Neck/C-Spine: COMMON NORMALS: full ROM, no lymphadenopathy, supple and no meningeal signs GENERAL: Yes normal visual inspection Lymph: LYMPHATIC: no lymphadenopathy noted Chest: COMMONS NORMALS: normal inspection of the chest and normal palpation of entire chest wall CHEST: No Ecchymosis present and No rash Resp: COMMON NORMALS: normal respiratory effort, No retractions and clear to auscultation bilaterally EFFORT & INSPECTION: No respiratory distress AUSCULTATION: clear to auscultation bilaterally Cardio: COMMON NORMALS: regular rate, regular rhythm and Peripheral pulses 2+ throughout JUGULAR VENOUS DISTENTION: no JVD RATE: regular rate RHYTHM: regular rhythm PERIPHERAL PULSES: Peripheral pulses 2+ throughout GI: COMMON NORMALS: Normal to inspection, nondistended, normoactive bowel sounds present and non-tender : COMMON NORMALS: Yes no CVA tenderness BLADDER/KIDNEY EXAM: Yes no CVA tenderness Back/Pelvis: COMMON NORMALS: no CVA tenderness Extremity: COMMON NORMALS: full ROM and capillary refill normal OTHER: Patient has 3+ pitting edema of the left lower extremity, 1+ pitting edema of the right lower extremity. Normal range of motion of all extremities. Patient has no pain with range of motion of either hip. Well-healed surgical incision right hip area Neuro: COMMON NORMALS: CN's II-XII intact bilaterally, no focal motor deficits and no sensory deficits noted SENSORIUM/ORIENTATION: Yes oriented to person a nd Yes oriented to place MENINGEAL SIGNS: Yes no meningeal signs Psych: COMMON NORMALS: mental status grossly normal and Normal thought process present THOUGHT PROCESS: Normal thought process present Skin: COMMON NORMALS: no rashes or lesions noted and no wounds GENERAL SKIN EXAM: no rashes or lesions noted Course Vital Signs: Vital signs: Vital Signs Temperature 97.2 F L 06/23/21 10:47 Pulse Rate 91 06/23/21 10:47 Respiratory Rate 18 06/23/21 10:47 Blood Pressure 148/73 06/23/21 15:00 Pulse Oximetry 99 06/23/21 15:00 MDM - General Adult MDM Narrative: Medical decision making narrative: 1320: Patient has acute kidney injury. BUN and creatinine are much more elevated than when she was in the hospital last. Patient is likely dehydrated. Her lactic acid is 2.7. She has an elevated white blood cell count. Therefore, will treat with IV antibiotics and IV fluids to cover for sepsis. Blood pressure is within normal limits. Patient is obese and I am estimating ideal body weight around 65 kg. Awaiting urine collection. Patient was first diagnosed with COVID on June 04, 2021. 1525: Discussed with hospitalist Dr. Gambel. Will place in observation to medical bed. Patient is 3 weeks out from her initial positive COVID test. Therefore, patient is not infectious as far as her COVID is concerned. Lab Data: Attestation: I reviewed the patient's lab results. Labs: Lab Results 06/23/21 06/23/21 06/23/21 12:00 12:00 12:00 WBC 18.8 10^3/uL H 10 ^3/uL (4.0-10.0) RBC 4.82 10^6/uL 10^6 /uL (4.1-5.3) Hgb 14.8 g/dL g/dL (11.5-15.3) Hct 44.1 % % (37.0-47.0) MCV 91.5 fl fl (81-99) MCH 30.7 pg pg (28.0-34.0) MCHC 33.6 g/dL g/dL (30.0-36.0) RDW 14.0 % % (12.1-15.1) Plt Count 183 10^3/cmm 10^3 /cmm (130-400) MPV 12.0 fL H fL (7.4-10.4) Neut % (Auto) 79.5 % % Lymph % (Auto) 10.4 % % [place] % (Auto) 8.6 % % Eos % (Auto) 0.1 % % Baso % (Auto) 0.2 % % Neut # (Auto) 14.93 10^3/uL H 1 0^3/uL (1.8-7.7) Lymph # (Auto) 2.0 10^3/uL 10^3/ uL (0.8-4.8) [place] # (Auto) 1.6 10^3/uL H 10^ 3/uL (0.2-0.9) Eos # (Auto) 0.0 10^3/uL 10^3/ uL (0.0-0.8) Baso # (Auto) 0.0 10^3/uL 10^3/ uL (0.0-0.1) Nucleated RBC % (a uto) 0 % % Nucleated RBCs # 0.0 /100WBC /100W BC Sodium 133 mmol/L L mmol /L (136-145) Potassium 3.8 mmol/L mmol/L (3.5-5.1) Chloride 96 mmol/L L mmol/ L (98-107) Carbon Dioxide 17 mmol/L L mmol/ L (22-29) Anion Gap 23.8 H (5-19) BUN 80 mg/dL H mg/dL (8-23) Creatinine 1.2 mg/dL H mg/dL (0.5-0.9) GFR Calculation Not Reportable Glucose 120 mg/dL H mg/dL (65-115) Calculated Osmolal ity 301 mOsm/kg H mOs m/kg (285-295) Lactate 2.7 mmol/L H mmol /L (0.5-2.2) Calcium 8.9 mg/dL mg/dL (8.5-10.5) Troponin T Baselin e Troponin T 120 Min [place] Troponin T Urine Color Urine Appearance Urine pH Ur Specific Gravit y Urine Protein Urine Glucose (UA) Urine Ketones Urine Blood Urine Nitrate Urine Bilirubin Urine Urobilinogen Ur Leukocyte Mare ase Urine RBC Urine WBC Ur Squamous Epith Cells Amorphous Sediment Urine Bacteria 06/23/21 06/23/21 06/23/21 12:00 14:15 14:31 WBC RBC Hgb Hct MCV MCH MCHC RDW Plt Count MPV Neut % (Auto) Lymph % (Auto) [place] % (Auto) Eos % (Auto) Baso % (Auto) Neut # (Auto) Lymph # (Auto) [place] # (Auto) Eos # (Auto) Baso # (Auto) Nucleated RBC % (a uto) Nucleated RBCs # Sodium Potassium Chloride Carbon Dioxide Anion Gap BUN Creatinine GFR Calculation Glucose Calculated Osmolal ity Lactate Calcium Troponin T Baselin e 45 ng/L H ng/L (0-10) Troponin T 120 Min [place] 42.61 ng/L H ng/L (0-10) Delta Troponin T -2.39 ABS# L ABS# (0-10) Urine Color Melanie (Yellow) Urine Appearance Hazy A (CLEAR) Urine pH 5 (5-7) Ur Specific Gravit y 1.025 (1.005-1.030) Urine Protein Neg (Negative) Urine Glucose (UA) Norm (Normal) Urine Ketones Negative (Negative) Urine Blood 2+ H (Negative) Urine Nitrate Negative (Negative) Urine Bilirubin 1+ H (Negative) Urine Urobilinogen 4 mg/dL H mg/dL (Negative) Ur Leukocyte Mare ase 2+ H (Negative) Urine RBC None /hpf /hpf (0-2) Urine WBC 10-15 /hpf H /hpf (0-5) Ur Squamous Epith Cells 25-40 /hpf H /hpf (0-5) Amorphous Sediment Not Reportable Urine Bacteria 3+ /hpf H /hpf (NONE) Imaging Data^: CXR: Radiologist's impression: Ordering Provider/Ordering MD: Jackson Lanza MD Date of Service: 06/23/21 Procedure(s): XR chest 1V portable [id number] Accession Number(s): [id number] Report Number: [id number] WS: [id number] Exam: XR chest 1V portable [id number] Date/Time of Exam: 06/23/2021 11:16 AM Reason For Exam: altered mental status Comparison 06/09/2021. The lungs are hyperinflated and clear. Heart size is normal. The mediastinum is not widened. Signs of previous CABG surgery. Anchoring screw in the right humeral head. DJD of the left glenohumeral joint. Surgical clips in the upper right and left abdomen. XR/XR chest 1V portable [id number] IMPRESSION: 1. Pulmonary hyperinflation. No acute process noted. Dictated By:Daoigned By:Julee Baptiste Date/Time:06/23/[address] Head: Radiologist's impression: Ordering Provider/Ordering MD: Jackson Lanza MD Date of Service: 06/23/21 Procedure(s): CT head wo con* [id number] Accession Number(s): [id number] Report Number: [id number] WS: [id number] CT HEAD NONCONTRAST HISTORY: altered mental status TECHNIQUE: Contiguous axial imaging performed through the brain in 2.5 mm imaging. Bone and soft tissue windows. Sagittal and coronal reformats reviewed. All CT scans at [facility] use at least one of these dose optimization techniques: automated exposure control; mA and/or kV adjustment per patient size (includes targeted exams where dose is matched to clinical indication); or iterative reconstruction. DLP: 850.31 mGy.cm COMPARISON: 11/07/2019 No acute intracranial hemorrhage, midline shift or mass effect. Moderate atrophy noted bilaterally. Mild chronic microvascular ischemic disease. There is also moderate bilateral cerebellar atrophy. Lacunar infarcts in the external capsules. There are small lacunar infarcts in the anterior limbs of internal capsules and the LEFT caudate head. Small lacunar infarct in the RIGHT caudate body was better seen on the prior exam. Ventricles: Normal size with no hydrocephalus. No inferior displacement of the cerebellar tonsils. Paranasal sinuses: Small amount mucoperiosteal thickening in the posterior sphenoid sinuses. Mastoid air cells: Well pneumatized. Calvarium and scalp: Hyperostosis frontalis interna. CT/CT head wo con* [id number] IMPRESSION: 1. No acute intracranial hemorrhage or edema. 2. Moderate cerebral and cerebellar atrophy with numerous small lacunar infarcts and chronic ischemic disease. Dictated By:Alice Gonsalves DOSigned By:Alice Gonsalves DOSigned Date/Time:06/23/21 1224 EKG Data^: EKG 1: Attestation: I personally reviewed and interpreted this EKG as follows: EKG interpretation date: 06/23/21 EKG interpretation time: 12:26 Prior EKG tracings: available for review (no change from 06/07/21) Interpretation: Normal sinus rhythm with a heart rate of 86. Borderline first-degree AV block. Unchanged from EKG of June 07, 2021. Left axis. ST segments. Normal T waves. Normal QRS. Normal QT interval Computer generated interpretation: Head CT 06/23/21 11:11 IMPRESSION: 1. No acute intracranial hemorrhage or edema. 2. Moderate cerebral and cerebellar atrophy with numerous small lacunar infarcts and chronic ischemic disease. Chest X-Ray 06/23/21 11:12 IMPRESSION: 1. Pulmonary hyperinflation. No acute process noted. Discharge Plan Discharge Patient Disposition: Placed in Observation Clinical Impression: Acute kidney injury, Moderate dehydration Dementia Qualifiers: Dementia type: unspecified type Dementia behavioral disturbance: without behavioral disturbance Qualified Code(s): F03.90 - Unspecified dementia without behavioral disturbance Urinary tract infection Qualifiers: Urinary tract infection type: site unspecified Hematuria presence: with hematuria Qualified Code(s): N39.0 - Urinary tract infection, site not specified Coding Level of Care Code ED Systems Technologist for g Fwd Exam Comprehensive
[2021-06-23 12:32] LABS: Basophils % 0.2 %; Eosinophils % 0.1 %; Hematocrit 44.1 % (37.0-47.0); Hemoglobin 14.8 g/dL (11.5-15.3); Lymphocytes % 10.4 %; Mean Corpuscular HGB Conc 33.6 g/dL (30.0-36.0); Mean Corpuscular Hemoglobin 30.7 pg (28.0-34.0); Mean Corpuscular Volume 91.5 fl (81-99); Monocytes # 1.6 10^3/uL (0.2-0.9); Monocytes % 8.6 %; Neutrophils # 14.93 10^3/uL (1.8-7.7); Neutrophils % 79.5 %; Nucleated Red Blood Cells % 0 %; Platelet Count 183 10^3/cmm (130-400); Red Blood Count 4.82 10^6/uL (4.1-5.3); White Blood Count 18.8 10^3/uL (4.0-10.0)
[2021-06-23 12:59] LABS: Anion Gap 23.8 (5-19); Blood Urea Nitrogen 80 mg/dL (8-23); Calcium 8.9 mg/dL (8.5-10.5); Carbon Dioxide 17 mmol/L (22-29); Chloride 96 mmol/L (98-107); Glucose 120 mg/dL (65-115); Osmolality Calculated 301 mOsm/kg (285-295); Potassium 3.8 mmol/L (3.5-5.1); Sodium 133 mmol/L (136-145)
[2021-06-23 13:00] LABS: Troponin(5th) Baseline 45 ng/L (0-10)
[2021-06-23 13:16] LABS: Lactate (Lactic Acid level) 2.7 mmol/L (0.5-2.2)
[2021-06-23] MEDS: sodium chloride 0.9% 1,000 ML 999 ML IV ×2 (13:27→14:33)
[2021-06-23] MEDS: cefTRIAXone 2,000 MG in sodium chloride 0.9% (plus) 50 ML 100 MG IV (13:31)
[2021-06-23 14:56] LABS: Bacteria Urine 3+ /hpf; Bilirubin Urine 1+ (Negative); Blood Urine 2+ (Negative); Glucose Urine UA Norm (Normal); Ketones Urine Negative (Negative); Leukocyte Esterase Urine 2+ (Negative); Nitrate Urine Negative (Negative); Protein Urine Neg (Negative); Specific Gravity, Urine 1.025 (1.005-1.030); Squamous Epithelial Cell Urine 25-40 /hpf (0-5); Urine Appearance Hazy (CLEAR); Urine Color Amber (Yellow); Urobilinogen Urine 4 mg/dL (Negative); pH Urine 5 (5-7)
[2021-06-23 14:57] LABS: Add Urine Culture? No
[2021-06-23 15:14] LABS: Troponin 5 2HR 42.61 ng/L (0-10)
[2021-06-23 15:17] LABS: Troponin 5 2HR Delta -2.39 ABS# (0-10)
--- NOTE | 2021-06-23 16:26 | P.HP_ITS ---
Providers/Chief Complaint Primary Care Provider: Ana Ríos MD Chief Complaint: CHANGE IN MENTAL STATUS History of Present Illness Mary Garcia is a 80 year old female who was recently discharged on 06/12 after management of right hip fracture, she was requiring 2 L of oxygen, got diagnosed with COVID via PCR on June 04, she has COPD factor V Leyden mutation, history of CABG and dementia. Today he was sent to the hospital for worsening of confusion. At the time of my evaluation patient is stating that she is hurting all over she was able to tell me her name, she was able to follow commands. She kept shaking and asked me to cover her with multiple layers of blankets. In the ER she has been diagnosed with MARY, Serna catheter has been placed which revealed concentrated urine. She received ceftriaxone for UTI, Zofran and Tylenol. Sepsis related to UTI Review of Systems General: Reports: ROS unobtainable due to medical condition (Hypoactive delirium with dementia) Medications/Allergies Home Medications Medication Instructions Recorded Confirmed Last Taken Type melatonin 5 mg capsule 5 mg PO BEDTIME PRN cap 09/24/19 06/07/21 Unknown Hist ory pantoprazole 40 mg tablet,delayed 40 mg PO DAILY tab 09/24/19 06/07/21 Unknown History release donepezil 10 mg PO DAILY 06/04/21 06/07/21 Unknown History escitalopram oxalate 10 mg PO DAILY 06/04/21 06/07/21 Unknown History memantine 10 mg PO BID 06/04/21 06/07/21 Unknown History oxybutynin chloride 5 mg PO DAILY PRN #20 tab 06/12/21 Unknown Rx Pro Stat Liquid 30 ml PO BID 06/23/21 06/23/21 Unknown History acetaminophen [Tylenol] 650 mg PO Q6H PRN 06/23/21 06/23/21 Unknown History aspirin 325 mg PO DAILY@08 06/23/21 06/23/21 06/23/21 History bisacodyl 10 mg MA DAILY PRN 06/23/21 06/23/21 Unknown History magnesium hydroxide [Milk of 30 ml PO DAILY PRN 06/23/21 06/23/21 Unknown History Magnesia] oxycodone 5 mg PO Q8H PRN 06/23/21 06/23/21 Unknown History polyethylene glycol 3350 [Miralax] 17 g PO DAILY PRN 06/23/21 06/23/21 Unknown History sennosides-docusate sodium 1 tab PO BID 06/23/21 06/23/21 Unknown History [Senna-S] sennosides-docusate sodium 2 tab-cap PO BID PRN 06/23/21 06/23/21 Unknown History [Senna-S] sodium phosphates [Enema 118 ml MA DAILY PRN 06/23/21 06/23/21 Unknown History Disposable] Allergies Allergy/AdvReac Type Severity Reaction Status Date / Time metronidazole [From Flagyl] Allergy Unknown Verified 06/23/21 16:53 Penicillins Allergy Unknown Verified 06/23/21 16:53 PFSH Acute PFSH: Medical History 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 Cognitive impairment COVID-19 Dementia Encounter for postoperative care GERD (gastroesophageal reflux disease) Migraine Surgical History H/O colonoscopy 09/19/13 - POLYPS H/O foot surgery H/O knee surgery H/O shoulder surgery H/O: hysterectomy History of cholecystectomy History of esophagogastroduodenoscopy (EGD) 09/19/13 Family History Mother Hypertension Rheumatoid arthritis Father Hypertension Brother Diabetes CAD (coronary artery disease) Sister CAD (coronary artery disease) Social History Smoking and tobacco status: former smoker Alcohol intake: never Vitals/I&O/Wt Last Vital Signs Temp 97.2 F L 06/23/21 10:47 Pulse 91 06/23/21 10:47 Resp 18 06/23/21 10:47 BP 148/73 06/23/21 15:00 Pulse Ox 99 06/23/21 15:00 06/23/21 06/23/21 06/23/21 06:59 14:59 22:59 Intake Total 1050 / 1050 Balance 1050 / 1050 Weight last 48 hrs Weight 81.647 kg Physical Exam Narrative: EXAM NARRATIVE: Patient was laying supine Has coarse tremors She is keeping her eyes closed and stating that she is hurting all over, she kept repeating please help me She is able to follow my commands, she was able to shake hand with her right hand, she was able to lift her left hand as well, left leg is swollen as compared to right Serna catheter draining concentrated urine Clinically looks dehydrated Abdomen soft No audible stridor or wheezing Currently on room air saturating well Data : 06/23/21 12:00 06/23/21 12:00 Micro: Microbiology 06/23/21 12:15 Blood Culture - Preliminary Blood SPECIMEN COLLECTED 06/23/21 12:00 Blood Culture - Preliminary Blood SPECIMEN COLLECTED A&P Assessment and plan (1) Acute kidney injury: Status: Acute (2) Moderate dehydration: Status: Acute (3) Dementia: Status: Acute Qualifiers: Dementia behavioral disturbance: without behavioral disturbance Dementia type: unspecified type Qualified Code(s): F03.90 - Unspecified dementia without behavioral disturbance (4) Urinary tract infection: Status: Acute Qualifiers: Hematuria presence: with hematuria Urinary tract infection type: site unspecified Qualified Code(s): N39.0 - Urinary tract infection, site not specified; R31.9 - Hematuria, unspecified (5) Sepsis: Status: Acute Additional A&P Information Sepsis related to UTI Hypoactive delirium with underlying dementia Worsening due to UTI Sepsis criteria met with leukocytosis, high lactic acid, endorgan damage creatinine 1.2 Blood cultures obtained in the ER She has been given 2 L of fluid in the ER and ceftriaxone Requested urine culture No active signs of neurological deficit No active signs of meningitis or stroke Abdomen is soft Check CPK, positive blood however no RBC in urine Signs of dehydration I will keep her on. Diet, she is edentulous Clinically looks dehydrated Continue IV fluids 75 mill per hour Received 2 L so far Left leg swelling Will request Doppler Recently she had right hip surgery she was discharged on aspirin for DVT prophylaxis DVT prophylaxis: Heparin . 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
--- NOTE | 2021-06-23 17:22 | PC.PHAR ---
pt is from [facility]-chari nurse at [facility] states the pt had her am meds and no prn meds
[2021-06-23] MEDS: morphine 4 mg/mL SDV 1 mL 2 MG IVP (18:39)
[2021-06-23 19:27] LABS: Troponin 5 6HR 47.04 ng/L (0-10); Troponin 5 6HR Delta 2.04 ng/L (0-12)
[2021-06-23 19:46] LABS: Creatine Phosphokinase 66 U/L (26-192)
[2021-06-23 19:54] LABS: Procalcitonin 0.13 ng/mL (0-0.5)
[2021-06-23 20:03] LABS: Vitamin B12 1148 pg/mL (232-1245)
[2021-06-24 00:22] VITALS: BP 122/68; PULSE 82; RESP 20; TEMP 36.9; O2SAT 95
[2021-06-24 03:09] LABS: Basophils % 0.2 %; Eosinophils % 0.2 %; Hemoglobin 14.2 g/dL (11.5-15.3); Lymphocytes # 2.7 10^3/uL (0.8-4.8); Lymphocytes % 14.4 %; Mean Corpuscular Hemoglobin 31.2 pg (28.0-34.0); Mean Corpuscular Volume 94.5 fl (81-99); Monocytes # 2.1 10^3/uL (0.2-0.9); Monocytes % 11.3 %; Neutrophils # 13.45 10^3/uL (1.8-7.7); Neutrophils % 72.8 %; Nucleated Red Blood Cells % 0 %; Platelet Count 147 10^3/cmm (130-400); Red Blood Count 4.55 10^6/uL (4.1-5.3); Red Cell Distribution Width 14.6 % (12.1-15.1); White Blood Count 18.5 10^3/uL (4.0-10.0)
[2021-06-24 03:32] LABS: Anion Gap 21.6 (5-19); Blood Urea Nitrogen 61 mg/dL (8-23); Calcium 8.5 mg/dL (8.5-10.5); Carbon Dioxide 18 mmol/L (22-29); Chloride 101 mmol/L (98-107); Glucose 90 mg/dL (65-115); Osmolality Calculated 301 mOsm/kg (285-295); Potassium 3.6 mmol/L (3.5-5.1); Sodium 137 mmol/L (136-145)
[2021-06-24 04:20] VITALS: BP 117/75; PULSE 83; RESP 19; TEMP 36.3; O2SAT 97
[2021-06-24] MEDS: sodium chloride 0.9% 1,000 ML 75 ML IV ×2 (05:52→18:38)
[2021-06-24] MEDS: methylphenidate 10 mg Tablet 5 MG PO ×2 (05:53→09:57)
[2021-06-24 08:00] VITALS: BP 123/73; PULSE 83; RESP 22; TEMP 36.9; O2SAT 98
--- NOTE | 2021-06-24 08:27 | PM.PN ---
Subjective Subjective: Interval history: Afebrile however leukocytosis 18,000 Patient is endorsing feeling slightly better, she was asking for food this morning, heel pressure ulcer has skin sloughing and maceration however does not look infected Superficial and DVT of left leg Vitals/I&O/Wt Last Vital Signs Temp 97.4 F L 06/24/21 04:20 Pulse 83 06/24/21 04:20 Resp 19 H 06/24/21 04:20 BP 117/75 06/24/21 04:20 Pulse Ox 97 06/24/21 04:20 06/23/21 06/24/21 06/24/21 22:59 06:59 14:59 Intake Total 999 60 / 0 Output Total 450 / 450 Balance 999 -390 / 1660 Weight last 48 hrs Weight 73.255 kg Weight 81.647 kg Physical Exam Narrative: EXAM NARRATIVE: Patient lying comfortably in her bed Saturating well on room air Abdomen soft Currently looks clinically dehydrated Abdomen soft Serna cath draining concentrated urine Heel pressure ulcer with black eschar, skin sloughing no active signs of cellulitis Left leg edema Patient has dementia, oriented to herself Able to answer my question, extremely fatigued and lethargic Data : 06/24/21 02:30 06/24/21 02:30 Micro: Microbiology 06/23/21 12:15 Blood Culture - Preliminary Blood SPECIMEN COLLECTED 06/23/21 12:00 Blood Culture - Preliminary Blood SPECIMEN COLLECTED A&P Assessment and plan (1) Sepsis: Status: Acute (2) Acute kidney injury: Status: Acute (3) Moderate dehydration: Status: Acute (4) Dementia: Status: Acute Qualifiers: Dementia behavioral disturbance: without behavioral disturbance Dementia type: unspecified type Qualified Code(s): F03.90 - Unspecified dementia without behavioral disturbance (5) Urinary tract infection: Status: Acute Qualifiers: Hematuria presence: with hematuria Urinary tract infection type: site unspecified Qualified Code(s): N39.0 - Urinary tract infection, site not specified; R31.9 - Hematuria, unspecified (6) Major depression: Status: Acute (7) Heel ulcer: Status: Acute (8) DVT (deep venous thrombosis): Status: Acute Additional A&P Information Sepsis related to UTI: White count still 18,000, awaiting urine cultures Afebrile Creatinine has improved MARY related to UTI: Improved with IV fluids Continue IV fluids for dehydration Acute DVT left leg: We will start therapeutic dose of Lovenox Full code Dysphagia level 1 diet, edentulous, Pressure ulcer of heel with dry black eschar, no active signs cellulitis, she will need wound care Attestations Medical Necessity Statement*: Starting therapeutic dose of Lovenox today, continue medical management, high leukocytosis Time Spent in Patient Care: 16 - 35 minutes Coding Level of Care Code Acute 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
[2021-06-24] MEDS: cefTRIAXone 1,000 MG in sodium chloride 0.9% (plus) 50 ML 100 MG IV (08:33)
[2021-06-24] MEDS: pantoprazole DR 40 mg Tablet PO (08:34)
[2021-06-24] MEDS: memantine 5 mg tablet 10 MG PO ×2 (08:34→18:36)
[2021-06-24] MEDS: donepezil 5 MG Tablet 10 MG PO (08:35)
[2021-06-24] MEDS: enoxaparin 80 mg/0.8 mL Syringe 70 MG SUBCUT (09:56)
[2021-06-24 12:48] LABS: Bacillus cereus group Not Detected (NOT DETECT); Bacillus subtillis group Not Detected (NOT DETECT); Corynebacterium Not Detected (NOT DETECT); Cutibacterium acnes (P.acnes) Not Detected (NOT DETECT); Enterococcus Not Detected (NOT DETECT); Enterococcus faecalis Not Detected (NOT DETECT); Enterococcus faecium Not Detected (NOT DETECT); Lactobacillus species Not Detected (NOT DETECT); Listeria Not Detected (NOT DETECT); Listeria monocytogenes Not Detected (NOT DETECT); Micrococcus Not Detected (NOT DETECT); Pan Candida Not Detected (NOT DETECT); Pan Gram-Negative Not Detected (NOT DETECT); Staphylococcus epidermidis Detected (NOT DETECT); Staphylococcus lugdunensis Not Detected (NOT DETECT); Staphylococcus species Detected (NOT DETECT); Streptococcus agalactiae Not Detected (NOT DETECT); Streptococcus anginosus group Not Detected (NOT DETECT); Streptococcus pneumoniae Not Detected (NOT DETECT); Streptococcus pyogenes Not Detected (NOT DETECT); Streptococcus species Not Detected (NOT DETECT); mecC Not Detected (NOT DETECT)
[2021-06-24 12:52] LABS: mecA Detected (NOT DETECT)
[2021-06-24] MEDS: vancomycin 1,000 MG in sodium chloride 0.9% 250 ML 250 MG IV (13:45)
[2021-06-24 13:50] VITALS: BP 153/77; PULSE 81; RESP 21; O2SAT 100
--- NOTE | 2021-06-24 13:59 | PC.CHAP ---
Pastoral Care Encounter/Spiritual Assessment Type of Contact [] Declined process development engineer visit [] Patient/Family/Request visit [] Outpatient visit [] Follow-up visit [] Physician referral [] Code/Alert [] Routine visit [] Staff referral [] Actively dying [xx] Patient sleeping [] Family support [] [] Out of room [] Palliative care [] [] Receiving care in room [] Pre-surgical visit [] Trauma [] Long length of stay [] ICU visit [] Other: Relational/Emotional Strength [] Patient feels connected with others/family/visitors/staff [] Distress [] Loneliness/isolation [] Abandonment Spirituality of Patient [] Person of Mary [] Attends Congregation of their Mary [] Believes in Prayer [] Reads Bible or Evangelical materials [] There are Spiritual issues to be addressed System Development Manager Interventions [] Prayer [] Active listening [] Non-anxious presence [] Spiritual/emotional support [] Crisis/trauma care [] Spiritual counseling [] Bereavement support [] Provided bereavement packet [] Provided Bible/devotional materials [] Provided toy/stuffed animal, coloring book to patient or family member [] Provided Communion [] Anointing/[place] [] Salvation [] Completed spiritual assessment [] Other: Impact on Illness or Injury [] Angry [] Fearful [] Anxious [] Often cries [] Exhaustion [] Unable to work [] Unable to attend adventism [] Unable to walk/stand [] Unable to read [] Unable to drive [] Unable to eat/drink [] Unable to sleep [] Unable to be with family [] Patient intubated [] Other: Summary Need follow up Time spent with patient
[2021-06-24 16:00] VITALS: BP 158/86; PULSE 92; RESP 21; O2SAT 98
--- NOTE | 2021-06-24 21:39 | USCV_ITS ---
Mary Garcia Age: 80 Gender: F : 1940 Exam Date: 06/24/2021 06:43 Ordering Phys: Valeria Gamble MD Technologist: Noreen Valentin Exam Location: [facility] – [place] Indication: SWOLLEN LT LEG HISTORY: Swollen Lt. Leg PROCEDURES: Venous duplex imaging was performed in only the LEFT lower extremity. The following venous structures were evaluated: common femoral vein, profunda vein, proximal portion of the greater saphenous vein, superficial femoral vein, and the popliteal vein. In addition, the posterior tibial and peroneal trunk were evaluated. Serial compression, augmentation maneuvers, and spectral Doppler flow evaluation were performed. FINDINGS: Evidence of acute occlusive deep vein thrombosis in the left common femoral vein through the peroneal vein with abnormal flow dynamics. Acute occlusive superficial thrombophlebitis in the left greater saphenous vein at [place] with abnormal flow dynamics. CONCLUSIONS Acute occlusive left lower extremity deep venous thrombosis. Acute focal left lower extremity superficial vein thrombosis. Dr. Alice Gonsalves DO (Electronically Signed) Final Date: 24 June 2021 08:03 Amended: 27 June 2021 13:08 C
[2021-06-25] VITALS (8 sets, daily range): BP systolic 132–163; BP diastolic 68–78; PULSE 72–90; RESP 18–21; TEMP 36.3–36.4; O2SAT 93–99
[2021-06-25] MEDS: sodium chloride 0.9% 1,000 ML 75 ML IV ×2 (04:34→18:42)
[2021-06-25 05:57] LABS: Basophils % 0.2 %; Eosinophils # 0.1 10^3/uL (0.0-0.8); Eosinophils % 0.7 %; Hematocrit 37.8 % (37.0-47.0); Hemoglobin 12.5 g/dL (11.5-15.3); Lymphocytes # 1.4 10^3/uL (0.8-4.8); Mean Corpuscular HGB Conc 33.1 g/dL (30.0-36.0); Mean Corpuscular Hemoglobin 30.9 pg (28.0-34.0); Mean Corpuscular Volume 93.6 fl (81-99); Mean Platelet Volume 11.4 fL (7.4-10.4); Monocytes % 10.7 %; Neutrophils # 7.05 10^3/uL (1.8-7.7); Neutrophils % 73.5 %; Nucleated Red Blood Cells % 0 %; Platelet Count 142 10^3/cmm (130-400); Red Blood Count 4.04 10^6/uL (4.1-5.3); Red Cell Distribution Width 14.5 % (12.1-15.1); White Blood Count 9.6 10^3/uL (4.0-10.0)
[2021-06-25 06:45] LABS: Anion Gap 17.9 (5-19); Blood Urea Nitrogen 38 mg/dL (8-23); Calcium 9.2 mg/dL (8.5-10.5); Carbon Dioxide 16 mmol/L (22-29); Chloride 107 mmol/L (98-107); Glucose 74 mg/dL (65-115); Osmolality Calculated 294 mOsm/kg (285-295); Sodium 138 mmol/L (136-145)
[2021-06-25 06:52] LABS: Potassium 2.9 mmol/L (3.5-5.1)
[2021-06-25 08:05] LABS: Glucose Point of Care 79 mg/dL (70-110)
[2021-06-25] MEDS: cefTRIAXone 1,000 MG in sodium chloride 0.9% (plus) 50 ML 100 MG IV (08:08)
--- NOTE | 2021-06-25 08:28 | PM.PN ---
Subjective Subjective: Interval history: This morning patient is stating that she is hurting all over, creatinine has improved, she was made n.p.o. for surgical debridement of the wound however Dr. Corbett has recommended conservative management and using Santyl for now Low potassium, giving IV potassium and p.o. She can eat today, plan to discharge her back to residential tomorrow Vitals/I&O/Wt Last Vital Signs Temp 97.6 F 06/25/21 05:04 Pulse 90 06/25/21 07:56 Resp 18 06/25/21 07:56 BP 148/76 06/25/21 07:56 Pulse Ox 97 06/25/21 07:56 06/24/21 06/25/21 06/25/21 22:59 06:59 14:59 Intake Total 0 / 2020 745 / 2765 Output Total 550 / 550 300 / 850 Balance 1170 / 1470 445 / 1915 Weight last 48 hrs Weight 73.255 kg Weight 81.647 kg Physical Exam Narrative: EXAM NARRATIVE: Fatigue and lethargic Able to answer my questions appropriately Complaining of pain all over her body Saturating well on room air Black eschar of right heel without any active signs of cellulitis, sloughing of skin noted Nonfocal neuro exam Serna catheter draining concentrated urine EOMI, PERRLA Nonfocal neuro exam Data : 06/25/21 05:12 06/25/21 05:12 Micro: Microbiology 06/23/21 14:15 Urine Culture - Preliminary Urine Catheterized 06/23/21 12:15 Blood Culture - Preliminary Blood NEGATIVE TO DATE 06/23/21 12:00 Blood Culture - Preliminary Blood Staphylococcus epidermidis A&P Assessment and plan (1) DVT (deep venous thrombosis): Status: Acute (2) Heel ulcer: Status: Acute (3) Sepsis: Status: Acute (4) Acute kidney injury: Status: Acute (5) Moderate dehydration: Status: Acute (6) Dementia: Status: Acute Qualifiers: Dementia behavioral disturbance: without behavioral disturbance Dementia type: unspecified type Qualified Code(s): F03.90 - Unspecified dementia without behavioral disturbance (7) Urinary tract infection: Status: Acute Qualifiers: Hematuria presence: with hematuria Urinary tract infection type: site unspecified Qualified Code(s): N39.0 - Urinary tract infection, site not specified; R31.9 - Hematuria, unspecified (8) Major depression: Status: Acute Additional A&P Information Sepsis related to UTI: Resolved Leukocytosis has improved significantly Blood culture staph epidermidis, discontinued vancomycin De-escalate antibiotics to Levaquin discontinue ceftriaxone Afebrile Acute DVT left leg start Eliquis loading dose MARY resolved with IV fluids MARY was secondary to UTI and dehydration Dementia: Patient seems to be at baseline, complains of her body hurting all over Hypokalemia: Repleted check magnesium level Full code Plan to discharge her back to residential tomorrow Attestations Medical Necessity Statement*: Discharge tomorrow back to residential Time Spent in Patient Care: less than 15 minutes Coding Level of Care Code Acute Graphic Arts Technician for [facility] Fwd Diagnoses DVT (deep venous thrombosis) I82.409 Heel ulcer L97.409 Sepsis A41.9 Acute kidney injury N17.9 Moderate dehydration E86.0 Dementia F03.90 Dementia behavioral disturbance: without behavioral disturbance Dementia type: unspecified type Urinary tract infection N39.0; R31.9 Hematuria presence: with hematuria Urinary tract infection type: site unspecified Major depression F32.9
--- NOTE | 2021-06-25 08:45 | PM.CONSULT ---
Providers/Reason For Consult Consulting Physician/Specialty*: General Surgery Dr. Corbett Reason for Consult*: Heel ulcer Attending Physician: Valeria Gamble MD Primary Care Provider: Ana Ríos MD History of Present Illness History of Present Illness Mary Garcia is a 80 year old female who had been hospitalized with COVID-19, right hip fracture and was readmitted on 06/23/2021 with confusion. Patient was noted to have MARY and UTI which have both resolved with IV fluids and antibiotics. She was noted to have a decubitus ulcer on her right heel. Yesterday she was diagnosed with DVT in her left lower extremity and is on therapeutic Lovenox. She has factor V deficiency Review of Systems General: Reports: ROS unobtainable due to mental status Medications/Allergies Home Medications Medication Instructions Recorded Confirmed Last Taken Type melatonin 5 mg capsule 5 mg PO BEDTIME PRN cap 09/24/19 06/23/21 Unknown History pantoprazole 40 mg tablet,delayed 40 mg PO DAILY@08 tab 09/24/19 06/23/21 06/23/21 08:00 History release donepezil 10 mg PO DAILY@08 06/04/21 06/23/21 06/23/21 08:00 History escitalopram oxalate 10 mg PO DAILY@08 06/04/21 06/23/21 06/23/21 08:00 History memantine 10 mg PO BID@06/04/21 06/23/21 06/23/21 08:00 History oxybutynin chloride 5 mg PO DAILY PRN #20 tab 06/12/21 06/23/21 Unknown Rx Pro Stat Liquid 30 ml PO BID 06/23/21 06/23/21 06/23/21 08:00 History acetaminophen [Tylenol] 650 mg PO Q6H PRN 06/23/21 06/23/21 Unknown History aspirin 325 mg PO DAILY@08 06/23/21 06/23/21 06/23/21 History bisacodyl 10 mg ND DAILY PRN 06/23/21 06/23/21 Unknown History magnesium hydroxide [Milk of 30 ml PO DAILY PRN 06/23/21 06/23/21 Unknown History Magnesia] oxycodone 5 mg PO Q8H PRN 06/23/21 06/23/21 06/22/21 History polyethylene glycol 3350 [Miralax] 17 g PO DAILY PRN 06/23/21 06/23/21 Unknown History sennosides-docusate sodium 1 tab PO BID@08,20 06/23/21 06/23/21 06/23/21 08:00 History [Senna-S] sennosides-docusate sodium 2 tab-cap PO BID PRN 06/23/21 06/23/21 Unknown History [Senna-S] sodium phosphates [Enema 118 ml ND DAILY PRN 06/23/21 06/23/21 Unknown History Disposable] Allergies Allergy/AdvReac Type Severity Reaction Status Date / Time metronidazole [From Flagyl] Allergy Unknown Verified 06/23/21 16:53 Penicillins Allergy Unknown Verified 06/23/21 16:53 Current Medications Generic Name Dose Route Start Last Admin Trade Name Freq PRN Reason Stop Dose Admin Donepezil HCl 10 mg 06/24/21 09:00 06/24/21 08:35 Donepezil 5 Mg Tablet PO 10 mg DAILY TIARRA Administration Enoxaparin Sodium 70 mg 06/24/21 09:00 06/24/21 09:56 Enoxaparin 80 Mg/0.8 Ml Syringe SUBCUT 70 mg Q12H TIARRA Administration Sodium Chloride 1,000 mls @ 75 mls/hr 06/23/21 21:39 06/25/21 04:34 Sodium Chloride 0.9% IV 75 mls/hr .[id number] TIARRA Administration Memantine 10 mg 06/23/21 21:39 06/24/21 18:36 Memantine 5 Mg Tablet PO 10 mg BID TIARRA Administration Pantoprazole Sodium 40 mg 06/24/21 09:00 06/24/21 08:[address] 40 Mg Tablet PO 40 mg DAILY TIARRA Administration PFSH Acute PFSH: Medical History 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 Cognitive impairment COVID-19 Dementia Encounter for postoperative care GERD (gastroesophageal reflux disease) Migraine Surgical History H/O colonoscopy 09/19/13 - POLYPS H/O foot surgery H/O knee surgery H/O shoulder surgery H/O: hysterectomy History of cholecystectomy History of esophagogastroduodenoscopy (EGD) 09/19/13 History of open reduction and internal fixation (ORIF) procedure (06/25/21) right hip Family History Mother Hypertension Rheumatoid arthritis Father Hypertension Brother Diabetes CAD (coronary artery disease) Sister CAD (coronary artery disease) Social History Smoking and tobacco status: former smoker Alcohol intake: never Vitals/I&O/Wt Last Vital Signs Temp 97.6 F 06/25/21 05:04 Pulse 90 06/25/21 07:56 Resp 18 06/25/21 07:56 BP 148/76 06/25/21 07:56 Pulse Ox 97 06/25/21 07:56 06/24/21 06/25/21 06/25/21 22:59 06:59 14:59 Intake Total 1720 / 2765 745 / 2765 Output Total 550 / 850 300 / 850 Balance 1170 / 1915 445 / 1915 Weight last 48 hrs Weight 161 lb 8 oz Weight 180 lb Physical Exam Narrative: EXAM NARRATIVE: HEENT: Normocephalic Eye: Sclera /conjunctiva normal Abdomen: Soft Neurological: Arousable, not oriented Skin: Intact, 2 x 2 centimeter eschar right heel, no cellulitis, fluctuance or purulent drainage noted Data Micro: Micro: Microbiology 06/23/21 14:15 Urine Culture - Pr eliminary Urine Catheterize d 06/23/21 12:15 Blood Culture - Pr eliminary Blood NEGATIVE TO ANANTH E 06/23/21 12:00 Blood Culture - Pr eliminary Blood Staphylococcus epidermidis A&P Assessment and plan (1) Heel ulcer: Old female with dementia who is a senior care resident who has a small 2 x 2 centimeter eschar on the right heel. No surrounding erythema, underlying fluctuance or purulent drainage noted. Patient has a DVT left lower extremity requiring anticoagulation. Patient's wound is not significant enough to take her to surgery. Santyl cream once daily and follow-up in wound care clinic/wound care at senior care Status: Acute Consult Attestations Medical Necessity Statement: As per attending physician Coding Level of Care Code Acute Digital Communications Manager for [facility] Diagnoses Heel ulcer L97.409
[2021-06-25 09:15] LABS: Magnesium 2.7 mg/dL (1.7-2.3)
[2021-06-25] MEDS: lidocaine 1% 5 ML in potassium chloride premix 100 ML 25 ML IV (09:20)
[2021-06-25] MEDS: collagenase oint 30 gm 1 APPLIC TOPICAL (09:31)
--- NOTE | 2021-06-25 10:22 | PC.NURSE ---
assisted in boosting patient up in bed
[2021-06-25] MEDS: pantoprazole DR 40 mg Tablet PO (10:25)
[2021-06-25] MEDS: memantine 5 mg tablet 10 MG PO ×2 (10:25→17:41)
[2021-06-25] MEDS: methylphenidate 10 mg Tablet PO (10:25)
[2021-06-25] MEDS: donepezil 5 MG Tablet 10 MG PO (10:26)
[2021-06-25] MEDS: potassium chloride ER 20 mEq Tablet 40 MEQ PO (10:26)
[2021-06-25] MEDS: oxyCODONE 5 mg IR Tab/Cap PO ×2 (10:26→20:12)
[2021-06-25] MEDS: enoxaparin 80 mg/0.8 mL Syringe 70 MG SUBCUT ×2 (10:53→20:12)
--- NOTE | 2021-06-25 11:32 | PC.NURSE ---
Blood glucose 79
[2021-06-25 11:45] LABS: Glucose Point of Care 79 mg/dL (70-110)
--- NOTE | 2021-06-25 14:35 | PC.NURSE ---
Patient is resting in bed, no needs at this time
--- NOTE | 2021-06-25 16:39 | PC.NURSE ---
blood glucose 76
[2021-06-25] MEDS: polyethylene glycol 3350 Pkt 17 gm PO (18:05)
--- NOTE | 2021-06-25 19:41 | PC.NURSE ---
Shift Note Frequent safety and comfort rounds continue. Orders and/or nursing care completed as indicated. Patient monitored for response to intervention and treatment(s). Education provided includes lovenox for dvt. Patient and/or senior human resources representative dgtr verbalizes understanding. Will continue to monitor.
[2021-06-25 19:53] LABS: Glucose Point of Care 76 mg/dL (70-110)
[2021-06-26] VITALS (7 sets, daily range): BP systolic 122–216; BP diastolic 58–93; PULSE 67–88; RESP 14–22; TEMP 36.2–36.6; O2SAT 95–100
--- NOTE | 2021-06-26 08:37 | PM.PN ---
Subjective Subjective: Interval history: Patient is fatigued and lethargic, CBC and BMP is pending, afebrile, hypertensive Vitals/I&O/Wt Last Vital Signs Temp 97.2 F L 06/26/21 07:32 Pulse 79 06/26/21 07:32 Resp 18 06/26/21 07:32 BP 156/81 06/26/21 07:32 Pulse Ox 99 06/26/21 07:32 06/25/21 06/26/21 06/26/21 22:59 06:59 14:59 Intake Total 1360 / 1515 Output Total 500 / 695 Balance 1360 / 1320 -500 / 820 Physical Exam Narrative: EXAM NARRATIVE: Patient is laying supine Able to follow commands Complaining of pain all over her body Clinically looks dehydrated Serna catheter draining dilute urine Left leg swelling Right heel has Santyl and wound dressing, skin sloughing off 2 x 2 centimeter no active signs of cellulitis Soft abdomen No new focal deficit Data : 06/25/21 05:12 06/25/21 05:12 Micro: Microbiology 06/23/21 12:15 Blood Culture - Preliminary Blood Staphylococcus epidermidis 06/23/21 12:00 Blood Culture - Preliminary Blood Staphylococcus epidermidis 06/23/21 14:15 Urine Culture - Final Urine Catheterized A&P Assessment and plan (1) DVT (deep venous thrombosis): Status: Acute (2) Heel ulcer: Status: Acute (3) Sepsis: Status: Acute (4) Acute kidney injury: Status: Acute (5) Moderate dehydration: Status: Acute (6) Dementia: Status: Acute Qualifiers: Dementia behavioral disturbance: without behavioral disturbance Dementia type: unspecified type Qualified Code(s): F03.90 - Unspecified dementia without behavioral disturbance (7) Urinary tract infection: Status: Acute Qualifiers: Hematuria presence: with hematuria Urinary tract infection type: site unspecified Qualified Code(s): N39.0 - Urinary tract infection, site not specified; R31.9 - Hematuria, unspecified (8) Close exposure to COVID-19 virus: Status: Acute (9) Major depression: Status: Acute Additional A&P Information Sepsis. Resolved Related to UTI: Urine culture showed contamination Voiding trial today DVT continue Lovenox we will switch to Eliquis at the time of discharge Right heel ulcer 2 x 2 centimeter, appreciate general surgery recommendations, santyl daily basis Patient has dementia I was able to speak with her legal guardian Shanel Wing, she does not have her living well but she is listed as full code, she is planning to talk with her siblings to decide about goals of care Full code Consistent carb diet Waiting on CBC and BMP from today Attestations Medical Necessity Statement*: Discharge tomorrow morning Time Spent in Patient Care: less than 15 minutes Coding Level of Care Code Acute Wind Turbine Blade Repair Technician for [facility] Fwd Diagnoses DVT (deep venous thrombosis) I82.409 Heel ulcer L97.409 Sepsis A41.9 Acute kidney injury N17.9 Moderate dehydration E86.0 Dementia F03.90 Dementia behavioral disturbance: without behavioral disturbance Dementia type: unspecified type Urinary tract infection N39.0; R31.9 Hematuria presence: with hematuria Urinary tract infection type: site unspecified Close exposure to COVID-19 virus Z20.822 Major depression F32.9
[2021-06-26] MEDS: memantine 5 mg tablet 10 MG PO ×2 (09:40→17:35)
[2021-06-26] MEDS: donepezil 5 MG Tablet 10 MG PO (09:41)
[2021-06-26] MEDS: enoxaparin 80 mg/0.8 mL Syringe 70 MG SUBCUT ×2 (09:41→20:06)
[2021-06-26] MEDS: pantoprazole DR 40 mg Tablet PO (09:41)
[2021-06-26] MEDS: collagenase oint 30 gm 1 APPLIC TOPICAL (09:41)
[2021-06-26 10:41] LABS: Basophils % 0.1 %; Eosinophils # 0.1 10^3/uL (0.0-0.8); Eosinophils % 1.1 %; Hematocrit 38.7 % (37.0-47.0); Hemoglobin 12.3 g/dL (11.5-15.3); Lymphocytes # 1.2 10^3/uL (0.8-4.8); Lymphocytes % 16.5 %; Mean Corpuscular HGB Conc 31.8 g/dL (30.0-36.0); Mean Corpuscular Hemoglobin 31.4 pg (28.0-34.0); Mean Corpuscular Volume 98.7 fl (81-99); Mean Platelet Volume 11.2 fL (7.4-10.4); Monocytes # 0.7 10^3/uL (0.2-0.9); Neutrophils # 5.02 10^3/uL (1.8-7.7); Neutrophils % 71.6 %; Nucleated Red Blood Cells % 0 %; Platelet Count 153 10^3/cmm (130-400); Red Blood Count 3.92 10^6/uL (4.1-5.3)
[2021-06-26 10:53] LABS: Anion Gap 17.7 (5-19); Blood Urea Nitrogen 20 mg/dL (8-23); Calcium 8.8 mg/dL (8.5-10.5); Carbon Dioxide 13 mmol/L (22-29); Chloride 110 mmol/L (98-107); Glucose 76 mg/dL (65-115); Osmolality Calculated 285 mOsm/kg (285-295); Potassium 3.7 mmol/L (3.5-5.1); Sodium 137 mmol/L (136-145)
--- NOTE | 2021-06-26 11:10 | PC.NURSE ---
blood glucose 68
[2021-06-26 11:31] LABS: Glucose Point of Care 68 mg/dL (70-110)
[2021-06-26] MEDS: sodium chloride 0.9% 1,000 ML 75 ML IV ×2 (12:19→17:37)
[2021-06-26 12:23] LABS: Glucose Point of Care 115 mg/dL (70-110)
[2021-06-26 16:10] LABS: Glucose Point of Care 83 mg/dL (70-110)
--- NOTE | 2021-06-26 16:41 | PC.NURSE ---
Patient is going to be discharge tomorrow Verified w/ doctor.
[2021-06-26] MEDS: bisacodyl 10 mg Supp PR (17:35)
[2021-06-26] MEDS: acetaminophen 325 mg Tablet 650 MG PO (17:35)
--- NOTE | 2021-06-26 17:46 | PC.NURSE ---
Nurse at bedside, food is at bedside when patient feels ready to eat.
[2021-06-26] MEDS: polyethylene glycol 3350 Pkt 17 gm PO (17:52)
--- NOTE | 2021-06-26 18:37 | PC.NURSE ---
Pt has a arora catheter since admission Per Dr. Gamble to dc arora and do a voiding trial. monitor output tonight post removal of arora.
[2021-06-26] MEDS: oxyCODONE 5 mg IR Tab/Cap PO (20:14)
[2021-06-27 04:00] VITALS: BP 134/69; PULSE 76; RESP 13; TEMP 36.6; O2SAT 94
[2021-06-27 04:55] LABS: Basophils % 0.1 %; Eosinophils # 0.2 10^3/uL (0.0-0.8); Eosinophils % 2.1 %; Hematocrit 37.7 % (37.0-47.0); Hemoglobin 12.5 g/dL (11.5-15.3); Lymphocytes # 2.3 10^3/uL (0.8-4.8); Lymphocytes % 24.5 %; Mean Corpuscular HGB Conc 33.2 g/dL (30.0-36.0); Mean Corpuscular Hemoglobin 30.9 pg (28.0-34.0); Mean Corpuscular Volume 93.1 fl (81-99); Mean Platelet Volume 11.1 fL (7.4-10.4); Monocytes # 0.9 10^3/uL (0.2-0.9); Neutrophils # 5.78 10^3/uL (1.8-7.7); Neutrophils % 62.8 %; Nucleated Red Blood Cells % 0 %; Platelet Count 180 10^3/cmm (130-400); Red Blood Count 4.05 10^6/uL (4.1-5.3); Red Cell Distribution Width 14.9 % (12.1-15.1); White Blood Count 9.2 10^3/uL (4.0-10.0)
[2021-06-27] MEDS: memantine 5 mg tablet 10 MG PO (09:12)
[2021-06-27] MEDS: collagenase oint 30 gm 1 APPLIC TOPICAL (09:12)
[2021-06-27] MEDS: pantoprazole DR 40 mg Tablet PO (09:12)
[2021-06-27] MEDS: donepezil 5 MG Tablet 10 MG PO (09:12)
[2021-06-27] MEDS: enoxaparin 80 mg/0.8 mL Syringe 70 MG SUBCUT (09:13)
--- NOTE | 2021-06-27 09:21 | PC.CHAP ---
Pastoral Care Encounter/Spiritual Assessment Type of Contact [] Declined lead software development engineer visit [] Patient/Family/Request visit [] Outpatient visit [] Follow-up visit [] Physician referral [] Code/Alert [x] Routine visit [] Staff referral [] Actively dying [x] Patient sleeping [] Family support [] [] Out of room [] Palliative care [] [] Receiving care in room [] Pre-surgical visit [] Trauma [] Long length of stay [] ICU visit [] Other: Relational/Emotional Strength [] Patient feels connected with others/family/visitors/staff [] Distress [] Loneliness/isolation [] Abandonment Spirituality of Patient [] Person of Mary [] Attends Yazidi of their Mary [] Believes in Prayer [] Reads Bible or Jainism materials [] There are Spiritual issues to be addressed Public Safety Police Interventions [x] Prayer [] Active listening [] Non-anxious presence [] Spiritual/emotional support [] Crisis/trauma care [] Spiritual counseling [] Bereavement support [] Provided bereavement packet [] Provided Bible/devotional materials [] Provided toy/stuffed animal, coloring book to patient or family member [] Provided Communion [] Anointing/[place] [] Salvation [x] Completed spiritual assessment [] Other: Impact on Illness or Injury [] Angry [] Fearful [] Anxious [] Often cries [] Exhaustion [] Unable to work [] Unable to attend voodoo [] Unable to walk/stand [] Unable to read [] Unable to drive [] Unable to eat/drink [] Unable to sleep [] Unable to be with family [] Patient intubated [] Other: Summary Time spent with patient
[2021-06-27 09:39] VITALS: BP 135/71; PULSE 78; RESP 21; TEMP 37.1; O2SAT 100
[2021-06-27 09:41] VITALS: BP 135/71; PULSE 78; RESP 21; TEMP 37.1; O2SAT 100
--- NOTE | 2021-06-27 10:00 | PC.NURSE ---
Patient left for SNF. Serna was placed upon discharge per physician orders. Report called to [facility], spoke with Ila. EMS transfer, VS stable upon departure.
--- NOTE | 2021-06-27 11:12 | P.DS_ITS ---
Discharge Providers Date of Admission: 06/24/21 17:35 Date of Discharge: June 26, 2021 Attending Provider at Admission: Valeria Gamble MD Attending Provider at Discharge: Valeria Gamble MD Primary Care Provider: Ana Ríos MD Diagnoses at Discharge Discharge Diagnosis (1) DVT (deep venous thrombosis): Status: Acute (2) Heel ulcer: Status: Acute (3) Sepsis: Status: Acute (4) Acute kidney injury: Status: Acute (5) Moderate dehydration: Status: Acute (6) Dementia: Status: Acute Qualifiers: Dementia behavioral disturbance: without behavioral disturbance Dementia type: unspecified type Qualified Code(s): F03.90 - Unspecified dem entia without behavioral disturbance (7) Urinary tract infection: Status: Acute Qualifiers: Hematuria presence: with hematuria Urinary tract infection type: site unspecified Qualified Code(s): N39.0 - Urinary tract infection, site not specified; R31.9 - Hematuria, unspecified (8) Close exposure to COVID-19 virus: Status: Acute (9) Major depression: Status: Acute Reason for Visit Reason for Visit: CHANGE IN MENTAL STATUS Hospital Course Hospital Course History of Present Illness Mary Garcia is a 80 year old female who was recently discharged on 06/12 after management of right hip fracture, she was requiring 2 L of oxygen, got diagnosed with COVID via PCR on June 04, she has COPD factor V Leyden mutation, history of CABG and dementia. Today he was sent to the hospital for worsening of confusion. At the time of my evaluation patient is stating that she is hurting all over she was able to tell me her name, she was able to follow commands. She kept shaking and asked me to cover her with multiple layers of blankets. In the ER she has been diagnosed with MARY, Serna catheter has been placed which revealed concentrated urine. She received ceftriaxone for UTI, Zofran and Tylenol. Sepsis related to UTI Hospital course 80-year-old female who was admitted to the hospital for chief complaint of worsening confusion, sepsis related to UTI. Her urine culture showed contamination however she was kept on IV antibiotics throughout her hospitalization, her blood cultures showed contamination with staph epidermidis. Her leukocytosis improved, sepsis resolved. She did well with IV fluid hydration. Her MARY resolved as well. For her right heel ulcer Dr. Corbett was consulted who recommended wound dressing and Santyl. She will need outpatient wound care follow-up. During this hospitalization she was diagnosed with left leg DVT, venous Doppler was requested for swelling of left leg she has factor V Leyden mutation and has not been on any anticoagulating agent before. She will be discharged on Eliquis with DVT starter pack I am also adding doxycycline to be taken every other day for her black scar on the right heel, wound care follow-up. Of note, patient failed voiding trial. She will be discharged with a Serna catheter, I will add oxybutynin. Physical Exam Narrative: EXAM NARRATIVE: Patient is laying supine, seem like back to her baseline, not in distress but seems withdrawn and answer my questions appropriately Able to follow commands Complaining of pain all over her body Clinically looks dehydrated Serna catheter draining dilute urine Left leg swelling Right heel has Santyl and wound dressing, skin sloughing off 2 x 2 centimeter no active signs of cellulitis Soft abdomen No new focal deficit Discharge Data Data Completed and Pending: Completed Studies During Hospitalization Category Date Time Status CT head wo con* 7 0450 Urgent Cat Scan 06/23/21 11:11 Completed XR chest 1V megan ble 63388 Urgent Exams 06/23/21 11:12 [place] [address] Routin e Ultrasound 06/24/21 21:39 Completed Pending at discharge Category Date Time Status Blood Culture Sta t Lab 06/23/21 12:15 Results Complete Blood Co unt w/Auto AM LABS Lab 06/27/21 04:00 Ordered Labs from last 24 hours 06/26/21 06/26/21 06/26/21 16:01 12:19 11:07 WBC RBC Hgb Hct MCV MCH MCHC RDW Plt Count MPV Neut % (Auto) Lymph % (Auto) [place] % (Auto) Eos % (Auto) Baso % (Auto) Neut # (Auto) Lymph # (Auto) [place] # (Auto) Eos # (Auto) Baso # (Auto) Nucleated RBC % (a uto) Nucleated RBCs # Sodium Potassium Chloride Carbon Dioxide Anion Gap BUN Creatinine GFR Calculation Glucose POC Glucose 83 115 H 68 L Calculated Osmolal ity Calcium 06/26/21 06/26/21 06/25/21 10:30 10:30 16:38 WBC 7.0 RBC 3.92 L Hgb 12.3 Hct 38.7 MCV 98.7 D MCH 31.4 MCHC 31.8 RDW 15.0 Plt Count 153 MPV 11.2 H Neut % (Auto) 71.6 Lymph % (Auto) 16.5 [place] % (Auto) 10.0 Eos % (Auto) 1.1 Baso % (Auto) 0.1 Neut # (Auto) 5.02 Lymph # (Auto) 1.2 [place] # (Auto) 0.7 Eos # (Auto) 0.1 Baso # (Auto) 0.0 Nucleated RBC % (a uto) 0 Nucleated RBCs # 0.0 Sodium 137 Potassium 3.7 Chloride 110 H Carbon Dioxide 13 L Anion Gap 17.7 BUN 20 Creatinine 0.5 GFR Calculation Not Reportable Glucose 76 POC Glucose 76 Calculated Osmolal ity 285 Calcium 8.8 Vitals: Last Vital Signs Temp 97.6 F 06/26/21 15:34 Pulse 67 06/26/21 15:34 Resp 18 06/26/21 15:34 BP 141/58 06/26/21 15:34 Pulse Ox 97 06/26/21 15:34 Discharge Plan Discharge Patient Disposition: Xfer SNF Condition: Stable Prescriptions: New levofloxacin 750 mg tablet 750 mg PO DAILY 5 Days Qty: 5 RF: 0 oxybutynin chloride 5 mg tablet 5 mg PO DAILY Qty: 30 RF: 0 mirtazapine 7.5 mg tablet 7.5 mg PO DAILY Qty: 30 RF: 0 Eliquis DVT-PE Treat 30D Start 5 mg (74 tabs) tablets,dose pack See Rx Instructions .ROUTE .COMPLEX Qty: 74 RF: 0 Senna-S 8.6-50 mg tablet 1 tab-cap PO DAILY Qty: 30 RF: 0 doxycycline hyclate 100 mg tablet 100 mg PO EVERY OTHER DAY Qty: 30 RF: 0 Continued pantoprazole 40 mg tablet,delayed release (DR/EC) 40 mg PO DAILY@08 RF: 0 melatonin 5 mg capsule 5 mg PO BEDTIME PRN (Reason: Sleep) RF: 0 oxybutynin chloride 5 mg tablet 5 mg PO DAILY PRN (Reason: bladder spasms) Qty: 20 RF: 0 donepezil 10 mg tablet 10 mg PO DAILY@08 RF: 0 escitalopram oxalate 10 mg tablet 10 mg PO DAILY@08 RF: 0 memantine 10 mg tablet 10 mg PO BID@,20 RF: 0 Tylenol 325 mg Tablet 650 mg PO Q6H PRN (Reason: Pain) RF: 0 Miralax 17 gram Powder In Packet 17 g PO DAILY PRN (Reason: Constipation) RF: 0 sennosides-docusate sodium [Senna-S] 8.6-50 mg Tablet 1 tab PO BID@08,20 RF: 0 Milk of Magnesia 400 mg/5 mL Suspension 30 ml PO DAILY PRN (Reason: Constipation) RF: 0 bisacodyl 10 mg Suppository 10 mg GA DAILY PRN (Reason: Constipation) RF: 0 Enema Disposable 19-7 gram/118 mL Enema 118 ml GA DAILY PRN (Reason: Constipation) RF: 0 Pro Stat Liquid 30 ml PO BID RF: 0 Senna-S 8.6-50 mg tablet 2 tab-cap PO BID PRN (Reason: constipation) RF: 0 oxycodone 5 mg tablet 5 mg PO Q8H PRN (Reason: Pain) RF: 0 aspirin 325 mg capsule 325 mg PO DAILY@08 RF: 0 Discharge Orders: Discharge Order (Routine); Ordered 06/27/21 Ordered By: Valeria Gamble Referrals: [facility] [Outside] Ana Ríos MD [Primary Care Provider] - [facility], [Staff Physician] - 4-7 days Discharge Diet: Soft Mechanical Discharge Activity: Increase activity as tolerated Patient Instructions: Opioid Safety Discharge Attestations Time Spent in Discharge Care*: less than 30 min Quality Metrics Clinical Quality Measures During this hospital stay, did patient experience: None Coding Level of Care Code Acute [facility] note Diagnoses DVT (deep venous thrombosis) I82.409 Heel ulcer L97.409 Sepsis A41.9 Acute kidney injury N17.9 Moderate dehydration E86.0 Dementia F03.90 Dementia behavioral disturbance: without behavioral disturbance Dementia type: unspecified type Urinary tract infection N39.0; R31.9 Hematuria presence: with hematuria Urinary tract infection type: site unspecified Close exposure to COVID-19 virus Z20.822 Major depression F32.9
--- NOTE | 2021-06-27 12:58 | PC.SOCIAL ---
IMM UPDATED IMM dated and initialed and copy given to patient
== END 2021-06-27 10:00 | disposition skilled nursing facility (03) | DRG 872 ==
LOC: ER 18:37 → ER IP 19:14 → CSU 20:49
PROVIDERS: Admitting Provider Internal Medicine; Emergency Provider Family Medicine; PCP Internal Medicine; Visit Provider Internal Medicine
DX: A41.9 Sepsis, unspecified organism (principal); N39.0 Urinary tract infection, site not specified; N17.9 Acute kidney failure, unspecified; D68.51 Activated protein C resistance; F05 Delirium due to known physiological condition; I82.412 Acute embolism and thrombosis of left femoral vein; I82.452 Acute embolism and thrombosis of left peroneal vein; R31.9 Hematuria, unspecified; Z86.16 Personal history of COVID-19; G30.9 Alzheimer's disease, unspecified; F02.80 Dementia in other diseases classified elsewhere, unspecified severity, without behavioral disturbance, psychotic disturbance, mood disturbance, and anxiety; I25.10 Atherosclerotic heart disease of native coronary artery without angina pectoris; Z95.1 Presence of aortocoronary bypass graft; K21.9 Gastro-esophageal reflux disease without esophagitis; Z87.891 Personal history of nicotine dependence; E86.0 Dehydration; E66.9 Obesity, unspecified; Z68.27 Body mass index [BMI] 27.0-27.9, adult; L89.610 Pressure ulcer of right heel, unstageable; F32.9 Major depressive disorder, single episode, unspecified; Z79.891 Long term (current) use of opiate analgesic; B95.8 Unspecified staphylococcus as the cause of diseases classified elsewhere; I10 Essential (primary) hypertension
CPT/HCPCS: 36415; 36416; 51702; 70450; 71045; 80048; 81001; 82550; 82607; 82962; 83605; 83735; 84145; 84484; 85025; 87040; 87086; 87150; 87186; 87205; 92523; 92610; 93005; 93971; 96365; 96367; 96372; 99285; G0378; J0696; J1650; J2270; J3370; J3480; J7030; J7050

== ENCOUNTER 2021-07-04 14:09 | Outpatient (CLI) | payer OTHER, SELFPAY ==
[2021-07-04 15:04] LABS: Basophils % 0.1 %; Eosinophils # 0.2 10^3/uL (0.0-0.8); Eosinophils % 2.4 %; Hematocrit 37.2 % (37.0-47.0); Hemoglobin 12.3 g/dL (11.5-15.3); Lymphocytes # 2.1 10^3/uL (0.8-4.8); Lymphocytes % 21.3 %; Mean Corpuscular HGB Conc 33.1 g/dL (30.0-36.0); Mean Corpuscular Hemoglobin 31.7 pg (28.0-34.0); Mean Corpuscular Volume 95.9 fl (81-99); Mean Platelet Volume 10.9 fL (7.4-10.4); Monocytes # 0.9 10^3/uL (0.2-0.9); Monocytes % 9.1 %; Neutrophils # 6.44 10^3/uL (1.8-7.7); Neutrophils % 66.6 %; Nucleated Red Blood Cells % 0 %; Platelet Count 221 10^3/cmm (130-400); Red Blood Count 3.88 10^6/uL (4.1-5.3); Red Cell Distribution Width 15.9 % (12.1-15.1); White Blood Count 9.7 10^3/uL (4.0-10.0)
[2021-07-04 15:31] LABS: Blood Urea Nitrogen 15 mg/dL (8-23); Calcium 8.7 mg/dL (8.5-10.5); Carbon Dioxide 18 mmol/L (22-29); Chloride 110 mmol/L (98-107); Glucose 76 mg/dL (65-115); Osmolality Calculated 294 mOsm/kg (285-295); Sodium 142 mmol/L (136-145)
== END 2021-07-04 14:10 | disposition home or self-care (01) ==
PROVIDERS: PCP Internal Medicine; Visit Provider Internal Medicine
DX: I82.452 Acute embolism and thrombosis of left peroneal vein (principal)
CPT/HCPCS: 80048; 85025

== ENCOUNTER 2021-07-29 08:22 | Outpatient (CLI) | payer MEDICARE, SELFPAY ==
[2021-07-29 09:11] LABS: Add Urine Microscopic? YES; Bilirubin Urine Neg (Negative); Blood Urine 3+ (Negative); Glucose Urine UA Norm (Normal); Ketones Urine Negative (Negative); Leukocyte Esterase Urine 2+ (Negative); Nitrate Urine Negative (Negative); Protein Urine Trace (Negative); Specific Gravity, Urine 1.025 (1.005-1.030); Urine Appearance Cloudy (CLEAR); Urine Color Yellow (Yellow); Urobilinogen Urine Norm (Negative); pH Urine 6 (5-7)
[2021-07-29 09:12] LABS: Add Urine Culture? No; Bacteria Urine 4+ /hpf; Other Sediment, Urine BUD YEAST W/HYPHAE; RBC Urine 25-40 /hpf (0-2); Squamous Epithelial Cell Urine 0-4 /hpf (0-5); WBC Urine 25-40 /hpf (0-5)
== END 2021-07-29 08:23 | disposition home or self-care (01) ==
LOC: LAB 08:23
PROVIDERS: PCP Internal Medicine; Visit Provider Nurse Practitioner Family
DX: N17.9 Acute kidney failure, unspecified (principal)
CPT/HCPCS: 81001; 87077; 87086; 87106; 87186

== ENCOUNTER 2021-07-31 09:39 | Inpatient (IN) | payer MEDICARE, SELFPAY ==
[2021-07-31] VITALS (11 sets, daily range): BP systolic 122–150; BP diastolic 58–95; PULSE 76–98; RESP 15–35; TEMP 37.2–37.3; O2SAT 91–100; BMI 25.7; BMI 25.2
--- NOTE | 2021-07-31 09:49 | ECG_ITS ---
[facility] Test Date: 2021-07-31 Pat Name: Mary Garcia Department: Room: Gender: Female Law Instructor: : 1940 Requested By: Jackson Bonner Order Number: [id number] Reading MD: Tanmay Almaguer M.D. Measurements Intervals [place] Rate: 95 P: 36 DC: 135 QRS: -54 QRSD: 93 T: 62 QT: 400 QTc: 503 Interpretive Statements SINUS RHYTHM LOW QRS VOLTAGE IN PRECORDIAL LEADS [QRS DEFLECTION < 1.0 mV IN CHEST LEADS] POSSIBLE ANTERIOR MYOCARDIAL INFARCTION , OF INDETERMINATE AGE [30 ms Q WAVE IN V3/V4, OR R < 0.2 mV IN V4] INFERIOR MYOCARDIAL INFARCTION , PROBABLY OLD [40+ ms Q WAVE AND/OR ST/T ABNORMALITY IN II/aVF] Compared to ECG 06/23/2021 12:23:14 Low QRS voltage now present Myocardial infarct finding still present Electronically Signed On 07-31-2021 21:52:11 HOME THEATRE TECHNICIAN by Tanmay Almaguer M.D. [id number]
--- NOTE | 2021-07-31 09:50 | XRR_ITS ---
PROCEDURE INFORMATION: Exam: XR Chest Exam date and time: 07/31/2021 9:50 AM Age: 80 years old Clinical indication: Dyspnea TECHNIQUE: Imaging protocol: XR of the chest. Views: 1 view. COMPARISON: CR XR chest 1V portable [id number] 06/23/2021 11:21 AM FINDINGS: Lungs: Unremarkable. No consolidation. Pleural spaces: Unremarkable. No pleural effusion. No pneumothorax. Heart/Mediastinum: The heart is not enlarged. Clips and sutures are present from cardiovascular surgery. Bones/joints: Median sternotomy. 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 XR/XR chest 1V portable [id number] IMPRESSION: No acute cardiopulmonary abnormality.
--- NOTE | 2021-07-31 09:51 | PC.NURSE ---
PATIENT LETHARGIC. DOES NOT OPEN EYES TO NAME OR STERNAL RUB.
--- NOTE | 2021-07-31 09:53 | W.ED.AMS ---
HPI - Altered Mental Status General: Chief Complaint: Altered Mental Status Stated Complaint: LETHARGY; WEAKNESS Time Seen by Provider: 07/31/21 09:48 Source: EMS Mode of arrival: EMS Limitations: altered mental status and other (Patient unable to give any history.) History of Present Illness: Patient reportedly has been treated for urinary tract infection for the past few days. According to EMS, patient has been nonverbal with them. Patient normally talks with family and staff. Unsure if patient has history of dementia. Patient more lethargic today and felt warm. However, no temperature documented by EMS. Patient has oxygen saturation 95% on 2 L by nasal cannula Her Blood Sugar Was Approximately 130 by EMS Prior to Arrival. Patient Has a DO NOT RESUSCITATE Order in Place. Possible History Includes DVTs and Is on Eliquis for This. Patient Presently Being Treated with Unknown Antibiotic for Urinary Tract Fraction. Patient Also Has Decubitus Ulcer to Right Heel. Allergies Include Penicillin and Metronidazole. Patient Is Unable to Give Any History at This Time. MD complaint: altered mental status and decreased responsiveness Onset (ago): unknown (Today) Timing confirmed by: caregiver Severity: moderate Consistency of symptoms: Constant Context: other (Recent urinary tract infection) Review of Systems General: Reports: ROS unobtainable due to mental status Const: Denies: chills Eyes: Denies: change in vision ENMT: Denies: throat pain Card: Denies: chest pain or palpitations Resp: Denies: dyspnea or wheezing GI: Denies: abdominal pain, nausea or vomiting : Denies: flank pain Musc: Denies: neck pain or back pain Skin/Breast: Denies: rash or pruritus Neuro: Denies: headache(s) or numbness in extremities Psych: Denies: anxiety Eliel/Lymph: Denies: enlarged lymph nodes PFSH ED PFSH: Medical History 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 Close exposure to COVID-19 virus Cognitive impairment COVID-19 Dementia Dementia Encounter for postoperative care GERD (gastroesophageal reflux disease) Major depression Migraine Urinary tract infection Surgical History H/O colonoscopy 09/19/13 - POLYPS H/O foot surgery H/O knee surgery H/O shoulder surgery H/O: hysterectomy History of cholecystectomy History of esophagogastroduodenoscopy (EGD) 09/19/13 History of open reduction and internal fixation (ORIF) procedure (06/25/21) right hip Family History Mother Hypertension Rheumatoid arthritis Father Hypertension Brother Diabetes CAD (coronary artery disease) Sister CAD (coronary artery disease) Social History Smoking and tobacco status: former smoker Alcohol intake: never Physical Exam Const: COMMON NORMALS: no acute distress, alert and well nourished ORIENTATION/CONSCIOUSNESS: Yes awake and Yes confused; not oriented to person, not oriented to place and not oriented to time HENMT: HEAD & SCALP: normal to inspection MOUTH: other (Poor dentition. Mucous membranes dry.) Eye: COMMON NORMALS: Equal, round and reactive pupils present, EOMs intact bilaterally and conjunctivae normal CONJUNCTIVA: Yes conjunctivae normal PUPIL: Yes Equal, round and reactive pupils present Neck/C-Spine: COMMON NORMALS: full ROM, no lymphadenopathy, supple, no meningeal signs and no JVD Lymph: LYMPHATIC: no lymphadenopathy noted Chest: COMMONS NORMALS: normal inspection of the chest OTHER: Sternotomy incision Resp: COMMON NORMALS: normal respiratory effort and No retractions AUSCULTATION: crackles (Right lower lobe) Laterality: right Cardio: COMMON NORMALS: no JVD, regular rhythm and Peripheral pulses 2+ throughout RATE: tachycardic RHYTHM: regular rhythm HEART SOUNDS: no murmurs PERIPHERAL PULSES: Peripheral pulses 2+ throughout GI: COMMON NORMALS: Normal to inspection, nondistended, normoactive bowel sounds present, Soft to palpation, non-tender, No hepatosplenomegaly present and no masses PALPATION: Yes Soft to palpation and Yes No hepatosplenomegaly present Extremity: NARRATIVE EXTREMITY EXAM: Patient has stage II well-healing ulcer to the right heel. No erythema or purulent discharge. Wound was dressed with bandages from the alf Neuro: SENSORIUM/ORIENTATION: Yes alert, No oriented to person, No oriented to place, No oriented to time, No somnolent, No obtunded, No stuporous and Yes other (Noncommunicative; appears demented) MENINGEAL SIGNS: Yes no meningeal signs Skin: OTHER: Stage II decubitus ulcer to right heel. Course Vital Signs: Vital signs: Vital Signs Temperature 98.9 F 07/31/21 10:22 Pulse Rate 83 07/31/21 15:29 Respiratory Rate 25 H 07/31/21 15:29 Blood Pressure 145/89 07/31/21 15:29 Pulse Oximetry 96 07/31/21 15:29 MDM - Altered Mental Status Medical Decision Making Altered mental status, dementia, transaminitis; uti Lab Data I reviewed the patient's lab results. : 07/31/21 09:45 07/31/21 09:45 Radiology Impressions Chest X-Ray 07/31/21 09:50 IMPRESSION: No acute cardiopulmonary abnormality. Gallbladder Ultrasound 07/31/21 11:31 IMPRESSION: 1. Cholecystectomy. Normal bile ducts. 2. Findings consistent with hepatic cirrhosis. Head CT 07/31/21 13:04 IMPRESSION: There are no acute concerning abnormalities. Laboratory Results WBC 2.3 10^3/uL (4.0-10.0) L 07/31/21 09:45 RBC 4.10 10^6/uL (4.1-5.3) 07/31/21 09:45 Hgb 12.6 g/dL (11.5-15.3) 07/31/21 09:45 Hct 39.5 % (37.0-47.0) 07/31/21 09:45 MCV 96.3 fl (81-99) 07/31/21 09:45 MCH 30.7 pg (28.0-34.0) 07/31/21 09:45 MCHC 31.9 g/dL (30.0-36.0) 07/31/21 09:45 RDW 15.2 % (12.1-15.1) H 07/31/21 09:45 Plt Count 182 10^3/cmm (130-400) 07/31/21 09:45 MPV 11.8 fL (7.4-10.4) H 07/31/21 09:45 Neut % (Auto) 21.0 % 07/31/21 09:45 Lymph % (Auto) 30.3 % 07/31/21 09:45 [place] % (Auto) 47.9 % 07/31/21 09:45 Eos % (Auto) 0.0 % 07/31/21 09:45 Baso % (Auto) 0.4 % 07/31/21 09:45 Neut # (Auto) 0.49 10^3/uL (1.8-7.7) L* 07/31/21 09:45 Lymph # (Auto) 0.7 10^3/uL (0.8-4.8) L 07/31/21 09:45 [place] # (Auto) 1.1 10^3/uL (0.2-0.9) H 07/31/21 09:45 Eos # (Auto) 0.0 10^3/uL (0.0-0.8) 07/31/21 09:45 Baso # (Auto) 0.0 10^3/uL (0.0-0.1) 07/31/21 09:45 Nucleated RBC % (auto) 0 % 07/31/21 09:45 Nucleated RBCs # 0.0 /100WBC 07/31/21 09:45 Sodium 146 mmol/L (136-145) H 07/31/21 09:45 Potassium 3.1 mmol/L (3.5-5.1) L 07/31/21 09:45 Chloride 110 mmol/L (98-107) H 07/31/21 09:45 Carbon Dioxide 22 mmol/L (22-29) 07/31/21 09:45 Anion Gap 17.1 (5-19) 07/31/21 09:45 BUN 24 mg/dL (8-23) H 07/31/21 09:45 Creatinine 0.7 mg/dL (0.5-0.9) 07/31/21 09:45 GFR Calculation Not Reportable 07/31/21 09:45 Glucose 137 mg/dL (65-115) H 07/31/21 09:45 Calculated Osmolality 308 mOsm/kg (285-295) H 07/31/21 09:45 Lactate 3.6 mmol/L (0.5-2.2) H 07/31/21 10:36 Calcium 9.5 mg/dL (8.5-10.5) 07/31/21 09:45 Total Bilirubin 0.9 mg/dL (0.15-1.2) 07/31/21 09:45 AST 97 U/L (0-32) H 07/31/21 09:45 ALT 36 U/L (0-33) H 07/31/21 09:45 Alkaline Phosphatase 296 IU/L (35-105) H 07/31/21 09:45 Total Protein 6.9 g/dL (6.6-8.7) 07/31/21 09:45 Albumin 2.9 g/dL (3.5-5.2) L 07/31/21 09:45 Globulin 4.0 g/dL (1.3-4.6) 07/31/21 09:45 Urine Color Dark yellow (Yellow) 07/31/21 10:00 Urine Appearance Hazy (CLEAR) A 07/31/21 10:00 Urine pH 5 (5-7) 07/31/21 10:00 Ur Specific [place] 1.020 (1.005-1.030) 07/31/21 10:00 Urine Protein Trace (Negative) 07/31/21 10:00 Urine Glucose (UA) Norm (Normal) 07/31/21 10:00 Urine Ketones Negative (Negative) 07/31/21 10:00 Urine Blood Neg (Negative) 07/31/21 10:00 Urine Nitrate Negative (Negative) 07/31/21 10:00 Urine Bilirubin 1+ (Negative) H 07/31/21 10:00 Urine Urobilinogen 1 mg/dL (Negative) H 07/31/21 10:00 Ur Leukocyte Esterase 2+ (Negative) H 07/31/21 10:00 Urine RBC None /hpf (0-2) 07/31/21 10:00 Urine WBC 15-25 /hpf (0-5) H 07/31/21 10:00 Ur Squamous Epith Cells 25-40 /hpf (0-5) H 07/31/21 10:00 Ur Transition Epith Cell 0-4 /hpf 07/31/21 10:00 Amorphous Sediment Not Reportable 07/31/21 10:00 Urine Bacteria 2+ /hpf (NONE) H 07/31/21 10:00 Urine Mucus 1+ /hpf 07/31/21 10:00 Coronavirus 229E (PCR) Not detected (NOT DETECT) 07/31/21 10:00 SARS-CoV-2 (PCR) Not detected (NOT DETECT) 07/31/21 10:00 Imaging Data CXR: I personally reviewed and interpreted this imaging study as follows: My impression: Nothing acute on chest x-ray. Patient had previous sternotomy. No infiltrates or pulmonary edema. US: Radiologist's impression: PROCEDURE INFORMATION: Exam: US Abdomen, Limited; Right Upper Quadrant Exam date and time: 07/31/2021 11:31 AM Age: 80 years old Clinical indication: Other: Blood work; Prior surgery; Surgery date: 6+ months; Surgery type: Gb removed; Patient HX: PT not able to respond to questions. Able to complain to pain but not able to answer any question; Additional info: Transaminitis TECHNIQUE: Imaging protocol: US abdomen. Real time ultrasound with image documentation. Limited exam focused on the right upper quadrant. COMPARISON: CT Chest/Abdomen/Pelvis w IV* 03/11/2015 1:00 PM FINDINGS: Liver: The liver is small with increased heterogeneous echogenicity and a lobulated contour which is probably due to hepatic cirrhosis. Gallbladder: Cholecystectomy. Common bile duct: Normal. No stones. No dilation. Pancreas: Visualized pancreas is unremarkable. Right kidney: Normal. No mass. No hydronephrosis. Aorta: No aneurysm. Poorly defined echogenicity in the region of the aorta appears to be artifactual in nature. Inferior vena cava: Normal US/US gall bladder [id number] IMPRESSION: 1. Cholecystectomy. Normal bile ducts. 2. Findings consistent with hepatic cirrhosis. ? Dictated By: Kang Mendez Signed By: Kang Mendez Signed Date/Time: 07/31/[address] Head: Radiologist's impression: The vRad interpretation shows nothing acute. Moderate white matter disease and volume loss. No acute infarct or hemorrhage. EKG Data EKG 1: I personally reviewed and interpreted this EKG as follows: EKG interpretation date: 07/31/21 EKG interpretation time: 10:20 Prior EKG tracings: not available for review Interpretation: Normal sinus rhythm with left axis. Heart rate 95. Nonspecific ST-T changes. Normal OK interval, normal normal P waves. Flattened T waves. Normal QRS. Other Data Urine appears contaminated but will treat for urinary tract infection. 1452: Paged Dr. Gamble hospitalist for admission. will admit to obs to med surg floor. 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
[2021-07-31 10:12] LABS: Basophils % 0.4 %; Hematocrit 39.5 % (37.0-47.0); Hemoglobin 12.6 g/dL (11.5-15.3); Lymphocytes # 0.7 10^3/uL (0.8-4.8); Lymphocytes % 30.3 %; Mean Corpuscular HGB Conc 31.9 g/dL (30.0-36.0); Mean Corpuscular Hemoglobin 30.7 pg (28.0-34.0); Mean Corpuscular Volume 96.3 fl (81-99); Mean Platelet Volume 11.8 fL (7.4-10.4); Monocytes # 1.1 10^3/uL (0.2-0.9); Monocytes % 47.9 %; Nucleated Red Blood Cells % 0 %; Platelet Count 182 10^3/cmm (130-400); Red Cell Distribution Width 15.2 % (12.1-15.1); White Blood Count 2.3 10^3/uL (4.0-10.0)
[2021-07-31 10:22] LABS: Alanine Aminotransferase 36 U/L (0-33); Albumin Level 2.9 g/dL (3.5-5.2); Alkaline Phosphatase 296 IU/L (35-105); Anion Gap 17.1 (5-19); Aspartate Amino Transferase 97 U/L (0-32); Blood Urea Nitrogen 24 mg/dL (8-23); Calcium 9.5 mg/dL (8.5-10.5); Carbon Dioxide 22 mmol/L (22-29); Chloride 110 mmol/L (98-107); Glucose 137 mg/dL (65-115); Osmolality Calculated 308 mOsm/kg (285-295); Potassium 3.1 mmol/L (3.5-5.1); Sodium 146 mmol/L (136-145); Total Bilirubin 0.9 mg/dL (0.15-1.2); Total Protein 6.9 g/dL (6.6-8.7)
[2021-07-31 10:49] LABS: Neutrophils # 0.49 10^3/uL (1.8-7.7)
[2021-07-31 11:28] LABS: Bilirubin Urine 1+ (Negative); Blood Urine Neg (Negative); Glucose Urine UA Norm (Normal); Ketones Urine Negative (Negative); Leukocyte Esterase Urine 2+ (Negative); Nitrate Urine Negative (Negative); Protein Urine Trace (Negative); Urine Appearance Hazy (CLEAR); Urine Color Dark Yellow (Yellow); Urobilinogen Urine 1 mg/dL (Negative); pH Urine 5 (5-7)
[2021-07-31 11:29] LABS: Squamous Epithelial Cell Urine 25-40 /hpf (0-5); WBC Urine 15-25 /hpf (0-5)
[2021-07-31 11:30] LABS: Add Urine Culture? No; Bacteria Urine 2+ /hpf; Mucus Urine 1+ /hpf; Transitional Epi Cells Urine 0-4 /hpf
--- NOTE | 2021-07-31 11:31 | USR_ITS ---
PROCEDURE INFORMATION: Exam: US Abdomen, Limited; Right Upper Quadrant Exam date and time: 07/31/2021 11:31 AM Age: 80 years old Clinical indication: Other: Blood work; Prior surgery; Surgery date: 6+ months; Surgery type: Gb removed; Patient HX: PT not able to respond to questions. Able to complain to pain but not able to answer any question; Additional info: Transaminitis TECHNIQUE: Imaging protocol: US abdomen. Real time ultrasound with image documentation. Limited exam focused on the right upper quadrant. COMPARISON: CT Chest/Abdomen/Pelvis w IV* 03/11/2015 1:00 PM FINDINGS: Liver: The liver is small with increased heterogeneous echogenicity and a lobulated contour which is probably due to hepatic cirrhosis. Gallbladder: Cholecystectomy. Common bile duct: Normal. No stones. No dilation. Pancreas: Visualized pancreas is unremarkable. Right kidney: Normal. No mass. No hydronephrosis. Aorta: No aneurysm. Poorly defined echogenicity in the region of the aorta appears to be artifactual in nature. Inferior vena cava: Normal US/US gall bladder [id number] IMPRESSION: 1. Cholecystectomy. Normal bile ducts. 2. Findings consistent with hepatic cirrhosis.
[2021-07-31 11:35] LABS: Lactate (Lactic Acid level) 3.6 mmol/L (0.5-2.2)
[2021-07-31] MEDS: cefTRIAXone 2,000 MG in sodium chloride 0.9% (plus) 50 ML 100 MG IV (11:49)
[2021-07-31] MEDS: potassium chloride premix 100 ML 50 MEQ IV (11:51)
--- NOTE | 2021-07-31 11:55 | PC.NURSE ---
PATIENT STILL LETHARGIC. PATIENT DOES OPEN EYES TO NAME BUT DOES NOT ANSWER OR HOLD THEM OPEN FOR EXTENDED PERIOD OF TIME. [place] BAG DRAINED. 200 ML OUT. PATIENT GIVEN BLANKET AND MADE COMFORTABLE IN BED.
[2021-07-31 12:17] LABS: Adenovirus Not Detected (NOT DETECT); Chlamydia Pneumoniae Not Detected (NOT DETECT); Coronavirus 229E,HKU1,NL63,OC4 Not Detected (NOT DETECT); Human Metapneumovirus Not Detected (NOT DETECT); Human Rhinovirus/Enterovirus Not Detected (NOT DETECT); Influenza A Not Detected (NOT DETECT); Influenza A H1 Not Detected (NOT DETECT); Influenza A H1-2009 Not Detected (NOT DETECT); Influenza A H3 Not Detected (NOT DETECT); Influenza B Not Detected (NOT DETECT); Mycoplasma Pneumoniae Not Detected (NOT DETECT); Parainfluenza Virus Type 1 Not Detected (NOT DETECT); Parainfluenza Virus Type 2 Not Detected (NOT DETECT); Parainfluenza Virus Type 3 Not Detected (NOT DETECT); Parainfluenza Virus Type 4 Not Detected (NOT DETECT); Respiratory Syncytial Virus A Not Detected (NOT DETECT); Respiratory Syncytial Virus B Not Detected (NOT DETECT); SARS-COV-2 Not Detected (NOT DETECT)
--- NOTE | 2021-07-31 13:04 | CTR_ITS ---
PROCEDURE INFORMATION: Exam: CT Head Without Contrast Exam date and time: 07/31/2021 1:04 PM Age: 80 years old Clinical indication: Altered mental status/memory loss; Confusion or disorientation; Patient HX: AMS - best images possible; Additional info: Altered mental status, dementia, anticoagulation w/eliquis, R/O hemorrhage TECHNIQUE: Imaging protocol: Computed tomography of the head without contrast. Radiation optimization: All CT scans at this facility use at least one of these dose optimization techniques: automated exposure control; mA and/or kV adjustment per patient size (includes targeted exams where dose is matched to clinical indication); or iterative reconstruction. COMPARISON: CT head wo con* [id number] 06/23/2021 12:13 PM RADIATION DOSE METRICS: Total DLP (mGy-cm): 727.77 FINDINGS: Brain: Moderate white matter disease and volume loss are identified. There is no acute infarct or edema. No hemorrhage. Cerebral ventricles: No ventriculomegaly. Paranasal sinuses: Visualized sinuses are unremarkable. No fluid levels. Mastoid air cells: Visualized mastoid air cells are well aerated. Bones/joints: Unremarkable. No acute fracture. Soft tissues: Unremarkable. CT/CT head wo con* [id number] IMPRESSION: There are no acute concerning abnormalities.
[2021-07-31] MEDS: sodium chloride 0.9% 1,000 ML 999 ML IV ×2 (14:09→15:14)
[2021-07-31] MEDS: sodium chloride 0.9% 500 ML IV (15:14)
--- NOTE | 2021-07-31 15:26 | PC.NURSE ---
NURSE IN PATIENT ROOM AFTER NOVELTY CANDY MAKER ALARMED FOR LOW O2. MONITOR OFF OF FINGER AND REAPPLIED. PATIENT VISIBLY SHAKING AFTER RECEIVING LITER OF FLUID. NURSE SPOKE TO PATIENT, PATIENT RESPONDED STATING SOMETHING IS MAKING ME SHAKE. PLEASE HELP ME. TWO WARM BLANKETS GIVEN TO PATIENT AND SHAKING DECREASED. 2ND LITER OF FLUID TAKEN FROM FLUID WARMER. PROVIDER NOTIFIED.
--- NOTE | 2021-07-31 15:49 | W.ED.AMS ---
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 Close exposure to COVID-19 virus Cognitive impairment COVID-19 Dementia Dementia Encounter for postoperative care GERD (gastroesophageal reflux disease) Major depression Migraine Urinary tract infection Surgical History H/O colonoscopy 09/19/13 - POLYPS H/O foot surgery H/O knee surgery H/O shoulder surgery H/O: hysterectomy History of cholecystectomy History of esophagogastroduodenoscopy (EGD) 09/19/13 History of open reduction and internal fixation (ORIF) procedure (06/25/21) right hip Family History Mother Hypertension Rheumatoid arthritis Father Hypertension Brother Diabetes CAD (coronary artery disease) Sister CAD (coronary artery disease) Social History Smoking and tobacco status: former smoker Alcohol intake: never Physical Exam Urinary Catheter Management: Serna: Cath Placed During This Visit: yes Urinary Catheter Date of Insertion: 07/31/21 Urinary Catheter Time of Insertion: 10:15 Course Vital Signs: Vital signs: Vital Signs Temperature 99.2 F 08/03/21 04:00 Pulse Rate 89 08/03/21 04:00 Respiratory Rate 44 H 08/03/21 04:00 Blood Pressure 140/80 08/03/21 04:00 Pulse Oximetry 95 08/03/21 04:00 MDM - Altered Mental Status Medical Decision Making addendum to my previous er note Lab Data : 08/03/21 05:25 08/02/21 04:48 Radiology Impressions Chest X-Ray 07/31/21 09:50 IMPRESSION: No acute cardiopulmonary abnormality. Gallbladder Ultrasound 07/31/21 11:31 IMPRESSION: 1. Cholecystectomy. Normal bile ducts. 2. Findings consistent with hepatic cirrhosis. Head CT 07/31/21 13:04 IMPRESSION: There are no acute concerning abnormalities. Laboratory Results WBC 2.1 10^3/uL (4.0-10.0) L 08/01/21 03:05 RBC 3.48 10^6/uL (4.1-5.3) L 08/01/21 03:05 Hgb 10.8 g/dL (11.5-15.3) L 08/01/21 03:05 Hct 33.9 % (37.0-47.0) L 08/01/21 03:05 MCV 97.4 fl (81-99) 08/01/21 03:05 MCH 31.0 pg (28.0-34.0) 08/01/21 03:05 MCHC 31.9 g/dL (30.0-36.0) 08/01/21 03:05 RDW 15.4 % (12.1-15.1) H 08/01/21 03:05 Plt Count 132 10^3/cmm (130-400) 08/01/21 03:05 MPV 11.9 fL (7.4-10.4) H 08/01/21 03:05 Neut % (Auto) 23.8 % 08/01/21 03:05 Lymph % (Auto) 34.0 % 08/01/21 03:05 [place] % (Auto) 40.7 % 08/01/21 03:05 Eos % (Auto) 0.0 % 08/01/21 03:05 Baso % (Auto) 1.0 % 08/01/21 03:05 Neut # (Auto) 0.50 10^3/uL (1.8-7.7) L* 08/01/21 03:05 Lymph # (Auto) 0.7 10^3/uL (0.8-4.8) L 08/01/21 03:05 [place] # (Auto) 0.9 10^3/uL (0.2-0.9) 08/01/21 03:05 Eos # (Auto) 0.0 10^3/uL (0.0-0.8) 08/01/21 03:05 Baso # (Auto) 0.0 10^3/uL (0.0-0.1) 08/01/21 03:05 Nucleated RBC % (auto) 0 % 08/01/21 03:05 Nucleated RBCs # 0.0 /100WBC 08/01/21 03:05 Sodium 149 mmol/L (136-145) H 08/01/21 03:05 Potassium 2.9 mmol/L (3.5-5.1) L 08/01/21 03:05 Chloride 117 mmol/L (98-107) H 08/01/21 03:05 Carbon Dioxide 21 mmol/L (22-29) L 08/01/21 03:05 Anion Gap 13.9 (5-19) 08/01/21 03:05 BUN 23 mg/dL (8-23) 08/01/21 03:05 Creatinine 0.4 mg/dL (0.5-0.9) L 08/01/21 03:05 GFR Calculation Not Reportable 08/01/21 03:05 Glucose 124 mg/dL (65-115) H 08/01/21 03:05 Calculated Osmolality 313 mOsm/kg (285-295) H 08/01/21 03:05 Lactate 3.6 mmol/L (0.5-2.2) H 07/31/21 10:36 Calcium 8.8 mg/dL (8.5-10.5) 08/01/21 03:05 Total Bilirubin 0.9 mg/dL (0.15-1.2) 07/31/21 09:45 AST 97 U/L (0-32) H 07/31/21 09:45 ALT 36 U/L (0-33) H 07/31/21 09:45 Alkaline Phosphatase 296 IU/L (35-105) H 07/31/21 09:45 Total Protein 6.9 g/dL (6.6-8.7) 07/31/21 09:45 Albumin 2.9 g/dL (3.5-5.2) L 07/31/21 09:45 Globulin 4.0 g/dL (1.3-4.6) 07/31/21 09:45 Urine Color Dark yellow (Yellow) 07/31/21 10:00 Urine Appearance Hazy (CLEAR) A 07/31/21 10:00 Urine pH 5 (5-7) 07/31/21 10:00 Ur Specific [place] 1.020 (1.005-1.030) 07/31/21 10:00 Urine Protein Trace (Negative) 07/31/21 10:00 Urine Glucose (UA) Norm (Normal) 07/31/21 10:00 Urine Ketones Negative (Negative) 07/31/21 10:00 Urine Blood Neg (Negative) 07/31/21 10:00 Urine Nitrate Negative (Negative) 07/31/21 10:00 Urine Bilirubin 1+ (Negative) H 07/31/21 10:00 Urine Urobilinogen 1 mg/dL (Negative) H 07/31/21 10:00 Ur Leukocyte Esterase 2+ (Negative) H 07/31/21 10:00 Urine RBC None /hpf (0-2) 07/31/21 10:00 Urine WBC 15-25 /hpf (0-5) H 07/31/21 10:00 Ur Squamous Epith Cells 25-40 /hpf (0-5) H 07/31/21 10:00 Ur Transition Epith Cell 0-4 /hpf 07/31/21 10:00 Amorphous Sediment Not Reportable 07/31/21 10:00 Urine Bacteria 2+ /hpf (NONE) H 07/31/21 10:00 Urine Mucus 1+ /hpf 07/31/21 10:00 Coronavirus 229E (PCR) Not detected (NOT DETECT) 07/31/21 10:00 SARS-CoV-2 (PCR) Not detected (NOT DETECT) 07/31/21 10:00 Discharge Plan Discharge Patient Disposition: Placed in Observation Admit Provider: Valeria Gamble Clinical Impression: Delirium due to general medical condition, Transaminitis, Acute UTI (urinary tract infection), Acute dehydration Altered mental status Qualifiers: Altered mental status type: unspecified Qualified Code(s): R41.82 - Altered mental status, unspecified Heel ulcer Qualifiers: Laterality: right Non-pressure ulcer stage: limited to breakdown of skin Qualified Code(s): 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
--- NOTE | 2021-07-31 17:32 | P.HP_ITS ---
Providers/Chief Complaint Admitting Physician: Valeria Gamble MD Primary Care Provider: Ana Ríos MD Chief Complaint: LETHARGY; WEAKNESS History of Present Illness Mary Garcia is a 80 year old female who presented from [facility] for change in her mental status. Carries diagnosis of dementia, factor V Leyden mutation, COPD, history of CABG, 2 L oxygen requirement, she was discharged a month ago after management of sepsis related to UTI. For right heel ulcer General surgery recommended wound dressing change and Santyl. She was also diagnosed with left leg DVT, Eliquis was started. For her pressure ulcer doxycycline was added to be taken every other day. She was discharged with a Serna catheter and oxybutynin when she failed voiding trial. In the ER she was diagnosed with UTI, severe neutropenia, hypokalemia, lactic acidemia secondary to dehydration, sodium 146, low albumin, she is DNR/DNI abnormal UA however sample is not sterile Previous urine culture showed yeast and Enterococcus Review of Systems General: Reports: ROS unobtainable due to medical condition (Dementia) Medications/Allergies Home Medications Medication Instructions Recorded Confirmed Last Taken Type melatonin 5 mg capsule 5 mg PO BEDTIME PRN cap 09/24/19 07/31/21 Unknown History pantoprazole 40 mg tablet,delayed 40 mg PO DAILY@08 tab 09/24/19 07/31/21 06/23/21 08:00 History release donepezil 10 mg tablet 10 mg PO DAILY@06/04/21 07/31/21 06/23/21 08:00 History escitalopram oxalate 10 mg tablet 10 mg PO DAILY@06/04/21 07/31/21 06/23/21 08:00 History memantine 10 mg tablet 10 mg PO BID@06/04/21 07/31/21 06/23/21 08:00 History bisacodyl 10 mg rectal suppository 10 mg WI DAILY PRN 06/23/21 07/31/21 Unknown History magnesium hydroxide 400 mg/5 mL 30 ml PO DAILY PRN 06/23/21 07/31/21 Unknown History oral suspension (Milk of Magnesia) oxycodone 5 mg tablet 5 mg PO Q8H PRN 06/23/21 07/31/21 06/22/21 History polyethylene glycol 3350 17 gram 17 g PO DAILY PRN 06/23/21 07/31/21 Unknown History oral powder packet (Miralax) sennosides 8.6 mg-docusate sodium 1 tab-cap PO BID 06/23/21 07/31/21 Unknown History 50 mg tablet (Senna-S) sodium phosphates 19 gram-7 118 ml WI DAILY PRN 06/23/21 07/31/21 Unknown History gram/118 mL enema (Enema Disposable) doxycycline hyclate 100 mg tablet 100 mg PO EVERY OTHER DAY #30 tab 06/27/21 07/31/21 Unknown Rx oxybutynin chloride 5 mg tablet 5 mg PO DAILY #30 tab 06/27/21 07/31/21 Unknown Rx acetaminophen 325 mg tablet 650 mg PO Q6H PRN 07/31/21 07/31/21 Unknown History aluminum-mag hydroxide-simethicone 30 ml PO Q4H PRN 07/31/21 07/31/21 Unknown History 200 mg-200 mg-20 mg/5 mL oral susp apixaban 5 mg (74 tabs) tablets in 5 mg PO BID 07/31/21 07/31/21 Unknown History a dose pack ([employer] DVT-PE Treat 30D Start) aspirin 81 mg tablet,delayed 81 mg PO DAILY 07/31/21 07/31/21 Unknown History release collagenase clostridium histo. 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 Close exposure to COVID-19 virus Cognitive impairment COVID-19 Dementia Dementia Encounter for postoperative care GERD (gastroesophageal reflux disease) Major depression Migraine Urinary tract infection Surgical History H/O colonoscopy 09/19/13 - POLYPS H/O foot surgery H/O knee surgery H/O shoulder surgery H/O: hysterectomy History of cholecystectomy History of esophagogastroduodenoscopy (EGD) 09/19/13 History of open reduction and internal fixation (ORIF) procedure (06/25/21) right hip Family History Mother Hypertension Rheumatoid arthritis Father Hypertension Brother Diabetes CAD (coronary artery disease) Sister CAD (coronary artery disease) Social History Smoking and tobacco status: former smoker Alcohol intake: never Vitals/I&O/Wt Last Vital Signs Temp 98.9 F 07/31/21 10:22 Pulse 80 07/31/21 16:55 Resp 30 H 07/31/21 16:55 BP 132/72 07/31/21 16:55 Pulse Ox 98 07/31/21 16:55 07/31/21 07/31/21 07/31/21 06:59 14:59 22:59 Intake Total 150 / 150 1000 / 1150 Balance 150 / 150 1000 / 1150 Weight last 48 hrs Weight 68.039 kg Physical Exam Narrative: elderly female she is stating that she is in pain On 2 L nasal cannula Bilateral breath sounds No adventitious rhonchi or crackles Abdomen soft Serna catheter in place draining concentrated dark brown urine Pressure ulcer right heel noted, skin is dry no active signs of infection Skin sloughing noticed around her sacral area She opens her eyes and answers simple questions Neuro exam is limited however grossly nonfocal Urinary Catheter Management: Serna: Cath Placed During This Visit: yes Urinary Catheter Date of Insertion: 07/31/21 Urinary Catheter Time of Insertion: 10:15 Data : 07/31/21 09:45 07/31/21 09:45 Micro: Microbiology 07/31/21 10:00 Blood Culture - Preliminary Blood SPECIMEN COLLECTED 07/31/21 10:18 Blood Culture - Preliminary Blood SPECIMEN COLLECTED A&P Assessment and plan (1) Altered mental status: Status: Acute Qualifiers: Altered mental status type: unspecified Qualified Code(s): R41.82 - Altered mental status, unspecified (2) Delirium due to general medical condition: Status: Acute (3) Dementia: Status: Acute Qualifiers: Alzheimer's disease onset: unspecified onset Dementia behavioral disturbance: without behavioral disturbance Dementia type: Alzheimer's Qualified Code(s): G30.9 - Alzheimer's disease, unspecified; F02.80 - Dementia in other diseases classified elsewhere without behavioral disturbance (4) Acute UTI (urinary tract infection): Status: Acute (5) Acute dehydration: Status: Acute (6) DVT (deep venous thrombosis): Status: Acute (7) Heel ulcer: Status: Acute Qualifiers: Laterality: right Non-pressure ulcer stage: limited to breakdown of skin Qualified Code(s): L97.411 - Non-pressure chronic ulcer of right heel and midfoot limited to breakdown of skin Plan Acute delirium with underlying dementia Related to UTI Obtain blood and urine culture Severe neutropenia Start IV fluids along D5 half-normal Dehydration with hypernatremia Previous urine culture reviewed Patient requires 2 L of oxygen at baseline Recurrent UTI history Creatinine is normal Low albumin She carries guarded prognosis because of underlying dementia and recurrent UTIs, her p.o. intake seems to be very poor We will get in touch with the family to discuss palliative option Lactic acidemia, anticipating improvement with IV fluid hydration I did speak with her daughter who is stating that she has started the process of transferring the patient to [facility] instead of [place], I will update pillowcase folder in the morning, she wants Ms. Garcia to be discharged to [facility] this time Agreeable for palliative consult, will ask Dr. Blanchard Attmajorations Medical Necessity Statement*: Anticipating less than 2 midnights anticipating less than 2 midnights Time Spent in Patient Care: 35mins Coding Level of Care Code Acute Winery Cellar Hand for [facility] Fwd Diagnoses Altered mental status R41.82 Altered mental status type: unspecified Delirium due to general medical condition F05 Dementia G30.9; F02.80 Alzheimer's disease onset: unspecified onset Dementia behavioral disturbance: without behavioral disturbance Dementia type: Alzheimer's Acute UTI (urinary tract infection) N39.0 Acute dehydration E86.0 DVT (deep venous thrombosis) I82.409 Heel ulcer L97.411 Laterality: right Non-pressure ulcer stage: limited to breakdown of skin
[2021-07-31] MEDS: dextrose 5%-sod chloride 0.45% 1,000 ML 30 ML IV (19:35)
[2021-07-31] MEDS: memantine 5 mg tablet 10 MG PO (20:09)
[2021-08-01] VITALS (7 sets, daily range): BP systolic 133–149; BP diastolic 78–88; PULSE 81–91; RESP 16–18; TEMP 36.8–37.2; O2SAT 91–98
[2021-08-01 04:45] LABS: Hematocrit 33.9 % (37.0-47.0); Hemoglobin 10.8 g/dL (11.5-15.3); Lymphocytes # 0.7 10^3/uL (0.8-4.8); Mean Corpuscular HGB Conc 31.9 g/dL (30.0-36.0); Mean Corpuscular Volume 97.4 fl (81-99); Mean Platelet Volume 11.9 fL (7.4-10.4); Monocytes # 0.9 10^3/uL (0.2-0.9); Monocytes % 40.7 %; Neutrophils % 23.8 %; Nucleated Red Blood Cells % 0 %; Platelet Count 132 10^3/cmm (130-400); Red Blood Count 3.48 10^6/uL (4.1-5.3); Red Cell Distribution Width 15.4 % (12.1-15.1); White Blood Count 2.1 10^3/uL (4.0-10.0)
[2021-08-01 05:03] LABS: Blood Urea Nitrogen 23 mg/dL (8-23); Calcium 8.8 mg/dL (8.5-10.5); Carbon Dioxide 21 mmol/L (22-29); Chloride 117 mmol/L (98-107); Glucose 124 mg/dL (65-115); Osmolality Calculated 313 mOsm/kg (285-295); Sodium 149 mmol/L (136-145)
[2021-08-01 05:07] LABS: Anion Gap 13.9 (5-19)
[2021-08-01 05:08] LABS: Potassium 2.9 mmol/L (3.5-5.1)
[2021-08-01] MEDS: lidocaine 1% 5 ML in potassium chloride premix 100 ML 25 ML IV ×2 (05:32→10:01)
[2021-08-01 05:47] LABS: Slide Review Slide Review Perform
[2021-08-01] MEDS: donepezil 5 MG Tablet 10 MG PO (09:58)
[2021-08-01] MEDS: pantoprazole DR 40 mg Tablet PO (09:59)
[2021-08-01] MEDS: sennosides-docusate Tablet 1 TAB PO ×2 (09:59→17:46)
[2021-08-01] MEDS: memantine 5 mg tablet 10 MG PO ×2 (09:59→20:36)
[2021-08-01] MEDS: oxybutynin 5 mg Tablet PO (09:59)
[2021-08-01] MEDS: escitalopram 10 mg Tablet PO (09:59)
[2021-08-01] MEDS: collagenase oint 30 gm 1 APPLIC TOPICAL (10:00)
[2021-08-01] MEDS: apixaban 5 mg Tablet PO ×2 (10:00→17:46)
[2021-08-01] MEDS: potassium chloride oral liq 20 mEq/15 mL UDC 40 MEQ PO (10:03)
[2021-08-01 10:36] LABS: Bacillus cereus group Not Detected (NOT DETECT); Bacillus subtillis group Not Detected (NOT DETECT); Corynebacterium Not Detected (NOT DETECT); Cutibacterium acnes (P.acnes) Not Detected (NOT DETECT); Enterococcus Not Detected (NOT DETECT); Enterococcus faecalis Not Detected (NOT DETECT); Enterococcus faecium Not Detected (NOT DETECT); Lactobacillus species Not Detected (NOT DETECT); Listeria Not Detected (NOT DETECT); Listeria monocytogenes Not Detected (NOT DETECT); Micrococcus Not Detected (NOT DETECT); Pan Candida Not Detected (NOT DETECT); Pan Gram-Negative Not Detected (NOT DETECT); Staphylococcus epidermidis Detected (NOT DETECT); Staphylococcus lugdunensis Not Detected (NOT DETECT); Staphylococcus species Detected (NOT DETECT); Streptococcus agalactiae Not Detected (NOT DETECT); Streptococcus anginosus group Not Detected (NOT DETECT); Streptococcus pneumoniae Not Detected (NOT DETECT); Streptococcus pyogenes Not Detected (NOT DETECT); Streptococcus species Not Detected (NOT DETECT); mecA Detected (NOT DETECT); mecC Not Detected (NOT DETECT)
--- NOTE | 2021-08-01 11:54 | P.PN_ITS ---
Subjective Subjective: Patient is able to eat with assistance Sodium 149 Potassium repleted manager distribution center updated that daughter is requesting [facility], will touch base with her again today Vitals/I&O/Wt Last Vital Signs Temp 98.2 F 08/01/21 11:24 Pulse 88 08/01/21 11:24 Resp 18 08/01/21 11:24 BP 133/83 08/01/21 11:24 Pulse Ox 95 08/01/21 11:24 07/31/21 08/01/21 08/01/21 22:59 06:59 14:59 Intake Total 2500 / 2650 120 / 120 Output Total 400 / 400 Balance 2500 / 2650 -400 / 2250 120 / 120 Weight last 48 hrs Weight 66.723 kg Weight 68.039 kg Physical Exam Narrative: Patient looks dehydrated Was eating dysphagia diet No signs of aspiration Able to answer simple questions She is still endorsing hurting all over I do not appreciate neuro focal deficits Able to make eye contact Patient is saturating well on 2 L nasal cannula No signs of respite distress Hemodynamically stable Afebrile Abdomen soft Lower extremity 2+ edema Urinary Catheter Management: Serna: Cath Placed During This Visit: yes Reason for Continuing Indwelling Catheter: Other Urinary Catheter Date of Insertion: 07/31/21 Urinary Catheter Time of Insertion: 10:15 Data : 08/01/21 03:05 08/01/21 03:05 Micro: Microbiology 07/31/21 10:18 Blood Culture - Preliminary Blood NEGATIVE TO DATE 07/31/21 10:00 Blood Culture - Preliminary Blood SPECIMEN COLLECTED 07/31/21 10:00 Urine Culture - Preliminary Urine,Clean Catch Staphylococcus species A&P Assessment and plan (1) Altered mental status: Status: Acute Qualifiers: Altered mental status type: unspecified Qualified Code(s): R41.82 - Altered mental status, unspecified (2) Delirium due to general medical condition: Status: Acute (3) Dementia: Status: Acute Qualifiers: Alzheimer's disease onset: unspecified onset Dementia behavioral disturbance: without behavioral disturbance Dementia type: Alzheimer's Qualified Code(s): G30.9 - Alzheimer's disease, unspecified; F02.80 - Dementia in other diseases classified elsewhere without behavioral disturbance (4) Acute UTI (urinary tract infection): Status: Acute (5) Acute dehydration: Status: Acute (6) Heel ulcer: Status: Acute Qualifiers: Laterality: right Non-pressure ulcer stage: limited to breakdown of skin Qualified Code(s): L97.411 - Non-pressure chronic ulcer of right heel and midfoot limited to breakdown of skin Plan Acute delirium with underlying dementia related to UTI Severe electrolyte imbalance: Potassium repleted Hypernatremia related dehydration, continue D5 Monitor for any signs of fluid overload need she has 2+ edema of legs Currently she is listed as full code, will discuss again with the daughter manager distribution center updated regarding daughter's wishes to transfer her to [facility] Continue current management plan Potassium repleted Chronic hypoxia without acute worsening requiring 2 L which is at baseline Attestations Medical Necessity Statement*: Continue hospitalization Time Spent in Patient Care: 15min Coding Level of Care Code Acute Dry Molder for [facility] Diagnoses Altered mental status R41.82 Altered mental status type: unspecified Delirium due to general medical condition F05 Dementia G30.9; F02.80 Alzheimer's disease onset: unspecified onset Dementia behavioral disturbance: without behavioral disturbance Dementia type: Alzheimer's Acute UTI (urinary tract infection) N39.0 Acute dehydration E86.0 Heel ulcer L97.411 Laterality: right Non-pressure ulcer stage: limited to breakdown of skin
--- NOTE | 2021-08-01 12:06 | PC.CHAP ---
Pastoral Care Encounter/Spiritual Assessment Type of Contact [] Declined tectonophysicist visit [] Patient/Family/Request visit [] Outpatient visit [] Follow-up visit [] Physician referral [] Code/Alert [x] Routine visit [] Staff referral [] Actively dying [x] Patient sleeping [] Family support [] [] Out of room [] Palliative care [] [] Receiving care in room [] Pre-surgical visit [] Trauma [] Long length of stay [] ICU visit [] Other: Relational/Emotional Strength [] Patient feels connected with others/family/visitors/staff [] Distress [] Loneliness/isolation [] Abandonment Spirituality of Patient [] Person of Mary [] Attends Catholic of their Mary [] Believes in Prayer [] Reads Bible or Holiness materials [] There are Spiritual issues to be addressed Agricultural Economics Teacher Interventions [] Prayer [] Active listening [] Non-anxious presence [] Spiritual/emotional support [] Crisis/trauma care [] Spiritual counseling [] Bereavement support [] Provided bereavement packet [] Provided Bible/devotional materials [] Provided toy/stuffed animal, coloring book to patient or family member [] Provided Communion [] Anointing/[place] [] Salvation [] Completed spiritual assessment [] Other: Impact on Illness or Injury [] Angry [] Fearful [] Anxious [] Often cries [] Exhaustion [] Unable to work [] Unable to attend yazidism [] Unable to walk/stand [] Unable to read [] Unable to drive [] Unable to eat/drink [] Unable to sleep [] Unable to be with family [] Patient intubated [] Other: Summary Time spent with patient
[2021-08-01] MEDS: cefTRIAXone 1,000 MG in sodium chloride 0.9% (plus) 50 ML 100 MG IV (13:12)
--- NOTE | 2021-08-01 15:57 | PC.NURSE ---
Notified Dr. Gamble of Critical results for 1 of 2 blood cultures growing Staph Aureus and Staph Epi. Urine culture growing VRE and Yeast.
[2021-08-01] MEDS: vancomycin 1,000 MG in sodium chloride 0.9% 250 ML 250 MG IV (16:30)
[2021-08-02] VITALS (8 sets, daily range): BP systolic 130–155; BP diastolic 68–91; PULSE 96–120; RESP 15–20; TEMP 37.2–37.9; O2SAT 93–100
[2021-08-02 05:17] LABS: Basophils % 1.2 %; Hematocrit 36.6 % (37.0-47.0); Hemoglobin 11.3 g/dL (11.5-15.3); Lymphocytes # 0.9 10^3/uL (0.8-4.8); Lymphocytes % 33.2 %; Mean Corpuscular HGB Conc 30.9 g/dL (30.0-36.0); Mean Corpuscular Volume 100.3 fl (81-99); Mean Platelet Volume 11.5 fL (7.4-10.4); Monocytes # 0.7 10^3/uL (0.2-0.9); Neutrophils % 36.7 %; Nucleated Red Blood Cells % 0 %; Platelet Count 156 10^3/cmm (130-400); Red Blood Count 3.65 10^6/uL (4.1-5.3); Red Cell Distribution Width 15.2 % (12.1-15.1); White Blood Count 2.6 10^3/uL (4.0-10.0)
[2021-08-02 05:39] LABS: Lactate (Lactic Acid level) 2.1 mmol/L (0.5-2.2)
[2021-08-02 05:41] LABS: Anion Gap 13.7 (5-19); Blood Urea Nitrogen 16 mg/dL (8-23); Calcium 9.3 mg/dL (8.5-10.5); Carbon Dioxide 19 mmol/L (22-29); Chloride 116 mmol/L (98-107); Glucose 126 mg/dL (65-115); Osmolality Calculated 303 mOsm/kg (285-295); Potassium 3.7 mmol/L (3.5-5.1); Sodium 145 mmol/L (136-145)
[2021-08-02 06:14] LABS: Neutrophils # 0.95 10^3/uL (1.8-7.7); Slide Review Slide Review Perform
[2021-08-02] MEDS: dextrose 5%-sod chloride 0.45% 1,000 ML 30 ML IV (10:18)
[2021-08-02] MEDS: donepezil 5 MG Tablet 10 MG PO (10:39)
[2021-08-02] MEDS: sennosides-docusate Tablet 1 TAB PO ×2 (10:39→17:16)
[2021-08-02] MEDS: apixaban 5 mg Tablet PO ×2 (10:40→17:16)
[2021-08-02] MEDS: escitalopram 10 mg Tablet PO (10:40)
[2021-08-02] MEDS: pantoprazole DR 40 mg Tablet PO (10:40)
[2021-08-02] MEDS: oxybutynin 5 mg Tablet PO (10:40)
[2021-08-02] MEDS: collagenase oint 30 gm 1 APPLIC TOPICAL (10:41)
[2021-08-02] MEDS: memantine 5 mg tablet 10 MG PO ×2 (10:43→21:26)
--- NOTE | 2021-08-02 11:07 | PM.PN ---
Subjective Subjective: This morning patient was complaining of hurting all over, I will give her oxycodone p.o. and keep her on morphine Her hyponatremia has improved I will continue D5 half-normal saline for 1 more day After 48 hours of negative blood cultures will ask for PICC line placement for at least 4 to 6 weeks of IV antibiotics for staph aureus bacteremia, it is MRSA, Enterococcus is resistant to vancomycin, will discontinue vancomycin and use linezolid which will cover both Vitals/I&O/Wt Last Vital Signs Temp 99.0 F 08/02/21 07:22 Pulse 102 H 08/02/21 08:11 Resp 18 08/02/21 07:22 BP 132/79 08/02/21 07:22 Pulse Ox 97 08/02/21 08:11 08/01/21 08/02/21 08/02/21 22:59 06:59 14:59 Intake Total 750 / 990 1000 / 1990 Output Total 300 / 300 300 / 600 Balance 450 / 690 700 / 1390 Weight last 48 hrs Weight 66.723 kg Physical Exam Narrative: Patient laying flat Saturating well on 2 L nasal cannula Abdomen soft Patient is stating that she is hurting all over Restless legs Dry ischemic ulcer of right heel No signs of edema or active infection She is able to open eyes and make eye contact Clinically still looks slightly dehydrated Able to answer simple questions Urinary Catheter Management: Serna: Cath Placed During This Visit: yes Reason for Continuing Indwelling Catheter: Other Urinary Catheter Date of Insertion: 07/31/21 Urinary Catheter Time of Insertion: 10:15 Data : 08/02/21 04:48 08/02/21 04:48 Micro: Microbiology 07/31/21 10:00 Blood Culture - Preliminary Blood Staphylococcus aureus Staphylococcus epidermidis 08/01/21 16:39 Blood Culture - Preliminary Blood SPECIMEN COLLECTED 08/01/21 16:37 Blood Culture - Preliminary Blood SPECIMEN COLLECTED 07/31/21 10:18 Blood Culture - Preliminary Blood NEGATIVE TO DATE 07/31/21 10:00 Urine Culture - Preliminary Urine,Clean Catch Staphylococcus species A&P Assessment and plan (1) Altered mental status: Status: Acute Qualifiers: Altered mental status type: unspecified Qualified Code(s): R41.82 - Altered mental status, unspecified (2) Delirium due to general medical condition: Status: Acute (3) Dementia: Status: Acute Qualifiers: Alzheimer's disease onset: unspecified onset Dementia behavioral disturbance: without behavioral disturbance Dementia type: Alzheimer's Qualified Code(s): G30.9 - Alzheimer's disease, unspecified; F02.80 - Dementia in other diseases classified elsewhere without behavioral disturbance (4) Acute UTI (urinary tract infection): Status: Acute (5) Acute dehydration: Status: Acute (6) DVT (deep venous thrombosis): Status: Acute (7) Heel ulcer: Status: Acute Qualifiers: Laterality: right Non-pressure ulcer stage: limited to breakdown of skin Qualified Code(s): L97.411 - Non-pressure chronic ulcer of right heel and midfoot limited to breakdown of skin (8) Bacteremia: Status: Acute Plan Dehydration related hypernatremia Hypernatremia has improved Staph aureus bacteremia MRSA Enterococcus positive urine culture, vancomycin resistant, switch antibiotics to linezolid We will plan for minimum 4 weeks of IV antibiotics and maximum 6 weeks PICC line will be placed once she remains afebrile and blood culture negative for about 48 hours DVT: Continue Eliquis Neutropenia: Slightly improved Metabolic encephalopathy related to UTI: Patient seems to be around baseline, able to answer simple questions, she is underlying dementia as well Hemodynamically stable Severe dementia Guarded prognosis We will touch base with her daughter if she would agree for PICC line placement and long-term antibiotic Has been accepted at [facility] Medical Necessity Statement*: Continue hospitalization Time Spent in Patient Care: 20min Coding Level of Care Code Acute Shield Runner for [facility] Fwd Diagnoses Altered mental status R41.82 Altered mental status type: unspecified Delirium due to general medical condition F05 Dementia G30.9; F02.80 Alzheimer's disease onset: unspecified onset Dementia behavioral disturbance: without behavioral disturbance Dementia type: Alzheimer's Acute UTI (urinary tract infection) N39.0 Acute dehydration E86.0 DVT (deep venous thrombosis) I82.409 Heel ulcer L97.411 Laterality: right Non-pressure ulcer stage: limited to breakdown of skin Bacteremia R78.81
[2021-08-02] MEDS: linezolid premix 600 MG/300 ML PREMIX 300 MG IV (12:18)
[2021-08-02 15:53] LABS: Bacillus cereus group Not Detected (NOT DETECT); Bacillus subtillis group Not Detected (NOT DETECT); Corynebacterium Not Detected (NOT DETECT); Cutibacterium acnes (P.acnes) Not Detected (NOT DETECT); Enterococcus Not Detected (NOT DETECT); Enterococcus faecalis Not Detected (NOT DETECT); Enterococcus faecium Not Detected (NOT DETECT); Lactobacillus species Not Detected (NOT DETECT); Listeria Not Detected (NOT DETECT); Listeria monocytogenes Not Detected (NOT DETECT); Micrococcus Not Detected (NOT DETECT); Pan Candida Not Detected (NOT DETECT); Pan Gram-Negative Not Detected (NOT DETECT); Staphylococcus epidermidis Detected (NOT DETECT); Staphylococcus lugdunensis Not Detected (NOT DETECT); Staphylococcus species Detected (NOT DETECT); Streptococcus agalactiae Not Detected (NOT DETECT); Streptococcus anginosus group Not Detected (NOT DETECT); Streptococcus pneumoniae Not Detected (NOT DETECT); Streptococcus pyogenes Not Detected (NOT DETECT); Streptococcus species Not Detected (NOT DETECT); mecA Detected (NOT DETECT); mecC Not Detected (NOT DETECT)
[2021-08-02] MEDS: acetaminophen 325 mg Tablet 650 MG PO (17:16)
--- NOTE | 2021-08-02 20:29 | PC.NURSE ---
i reported high reps 20 to nurse
[2021-08-03] VITALS (8 sets, daily range): BP systolic 122–152; BP diastolic 70–89; PULSE 85–99; RESP 16–44; TEMP 36.9–38.2; O2SAT 93–97
[2021-08-03] MEDS: linezolid premix 600 MG/300 ML PREMIX 300 MG IV ×3 (00:20→23:29)
[2021-08-03 05:39] LABS: Basophils % 1.1 %; Hematocrit 35.6 % (37.0-47.0); Hemoglobin 11.1 g/dL (11.5-15.3); Lymphocytes # 1.2 10^3/uL (0.8-4.8); Lymphocytes % 33.6 %; Mean Corpuscular HGB Conc 31.2 g/dL (30.0-36.0); Mean Corpuscular Hemoglobin 31.4 pg (28.0-34.0); Mean Corpuscular Volume 100.6 fl (81-99); Mean Platelet Volume 11.6 fL (7.4-10.4); Monocytes # 0.5 10^3/uL (0.2-0.9); Monocytes % 15.4 %; Neutrophils # 1.71 10^3/uL (1.8-7.7); Neutrophils % 48.8 %; Nucleated Red Blood Cells % 0 %; Platelet Count 160 10^3/cmm (130-400); Red Blood Count 3.54 10^6/uL (4.1-5.3); Red Cell Distribution Width 15.8 % (12.1-15.1); White Blood Count 3.5 10^3/uL (4.0-10.0)
[2021-08-03 06:15] LABS: Slide Review Slide Review Perform
[2021-08-03 06:23] LABS: Anion Gap 14.1 (5-19); Blood Urea Nitrogen 17 mg/dL (8-23); Carbon Dioxide 19 mmol/L (22-29); Chloride 116 mmol/L (98-107); Glucose 109 mg/dL (65-115); Osmolality Calculated 304 mOsm/kg (285-295); Potassium 3.1 mmol/L (3.5-5.1); Sodium 146 mmol/L (136-145)
[2021-08-03] MEDS: donepezil 5 MG Tablet 10 MG PO (09:00)
[2021-08-03] MEDS: apixaban 5 mg Tablet PO (09:01)
[2021-08-03] MEDS: sennosides-docusate Tablet 1 TAB PO (09:01)
[2021-08-03] MEDS: escitalopram 10 mg Tablet PO (09:01)
[2021-08-03] MEDS: pantoprazole DR 40 mg Tablet PO (09:01)
[2021-08-03] MEDS: oxybutynin 5 mg Tablet PO (09:01)
[2021-08-03] MEDS: collagenase oint 30 gm 1 APPLIC TOPICAL (09:04)
[2021-08-03] MEDS: memantine 5 mg tablet 10 MG PO (09:04)
[2021-08-03] MEDS: dextrose 5%-sod chloride 0.45% 1,000 ML 30 ML IV (09:05)
--- NOTE | 2021-08-03 09:07 | PM.PN ---
Subjective Subjective: Low-grade fever noted Neutropenia improved Currently on linezolid Potassium 3.1 Sodium 146 Patient keeps her eyes closed, endorses pain Daughter is leaning towards comfort care if she feels IV antibiotic regimen at the [facility] but she is okay with placement of PICC line and 4 to 6 weeks of IV antibiotics Vitals/I&O/Wt Last Vital Signs Temp 98.6 F 08/03/21 07:29 Pulse 88 08/03/21 07:29 Resp 16 08/03/21 07:29 BP 152/70 08/03/21 07:29 Pulse Ox 97 08/03/21 07:29 08/02/21 08/03/21 08/03/21 22:59 06:59 14:59 Intake Total 300 / 600 683.5 / 683.5 Output Total 250 / 250 890 / 1140 Balance -250 / 50 -590 / -540 683.5 / 683.5 Physical Exam Narrative: Patient is dehydrated Keeps her eyes closed However able to open her eyes on verbal command When she opens eyes she starts moaning and complain of pain especially in her right leg Her right heel has dry black eschar no active sign of cellulitis She keeps moving her legs bilaterally because of irritability She is on 2 L nasal cannula Abdomen soft Nondistended No audible stridor or wheezing Urinary Catheter Management: Serna: Cath Placed During This Visit: yes Reason for Continuing Indwelling Catheter: Acute Urinary Retention or Obstruction Urinary Catheter Date of Insertion: 07/31/21 Urinary Catheter Time of Insertion: 10:15 Data : 08/03/21 05:25 08/03/21 05:25 Micro: Microbiology 08/01/21 16:39 Blood Culture - Preliminary Blood NEGATIVE TO DATE 08/01/21 16:37 Blood Culture - Preliminary Blood Staphylococcus epidermidis 07/31/21 10:00 Urine Culture - Final Urine,Clean Catch Methicillin Resis Staph Aureus A&P Assessment and plan (1) Bacteremia: Status: Acute (2) Altered mental status: Status: Acute Qualifiers: Altered mental status type: unspecified Qualified Code(s): R41.82 - Altered mental status, unspecified (3) Delirium due to general medical condition: Status: Acute (4) Dementia: Status: Acute Qualifiers: Alzheimer's disease onset: unspecified onset Dementia behavioral disturbance: without behavioral disturbance Dementia type: Alzheimer's Qualified Code(s): G30.9 - Alzheimer's disease, unspecified; F02.80 - Dementia in other diseases classified elsewhere without behavioral disturbance (5) Acute UTI (urinary tract infection): Status: Acute (6) Acute dehydration: Status: Acute (7) DVT (deep venous thrombosis): Status: Acute (8) Heel ulcer: Status: Acute Qualifiers: Laterality: right Non-pressure ulcer stage: limited to breakdown of skin Qualified Code(s): L97.411 - Non-pressure chronic ulcer of right heel and midfoot limited to breakdown of skin Plan My plan is to get PICC line today Blood culture positive with staph epidermidis Blood culture from 07/31 showed epidermidis and staph aureus Urine culture positive for MRSA This most likely is urinary source Low-grade fever noted Continue IV fluid hydration for her signs of dehydration and hyponatremia Severe neutropenia: Improved Hypokalemia: Potassium repleted Patient is DNR/DNI, daughter is stating that she might lean towards comfort care if she starts declining with IV antibiotics at the [facility] but for now she is okay with the PICC line procedure and continuation of IV antibiotics Attestations Medical Necessity Statement*: Continue hospitalization Time Spent in Patient Care: 15mins Coding Level of Care Code Acute Taproom Attendant for [facility] Fwd Diagnoses Bacteremia R78.81 Altered mental status R41.82 Altered mental status type: unspecified Delirium due to general medical condition F05 Dementia G30.9; F02.80 Alzheimer's disease onset: unspecified onset Dementia behavioral disturbance: without behavioral disturbance Dementia type: Alzheimer's Acute UTI (urinary tract infection) N39.0 Acute dehydration E86.0 DVT (deep venous thrombosis) I82.409 Heel ulcer L97.411 Laterality: right Non-pressure ulcer stage: limited to breakdown of skin
[2021-08-03] MEDS: lidocaine 1% 5 ML in potassium chloride premix 100 ML 25 ML IV (16:42)
--- NOTE | 2021-08-03 20:08 | PC.NURSE ---
i reported high reps 20 to nurse
[2021-08-03] MEDS: dextrose 5%-sod chloride 0.45% 1,000 ML 75 ML IV (20:56)
[2021-08-04] VITALS: BP 120/69; PULSE 80; RESP 18; O2SAT 93
[2021-08-04 03:28] VITALS: BP 129/61; PULSE 83; RESP 18; TEMP 37.2; O2SAT 97
[2021-08-04 06:05] LABS: Basophils % 0.7 %; Eosinophils % 0.3 %; Hematocrit 35.8 % (37.0-47.0); Hemoglobin 10.9 g/dL (11.5-15.3); Lymphocytes # 1.3 10^3/uL (0.8-4.8); Lymphocytes % 43.2 %; Mean Corpuscular HGB Conc 30.4 g/dL (30.0-36.0); Mean Corpuscular Volume 101.7 fl (81-99); Mean Platelet Volume 11.7 fL (7.4-10.4); Monocytes # 0.7 10^3/uL (0.2-0.9); Monocytes % 21.6 %; Neutrophils % 32.5 %; Nucleated Red Blood Cells % 0 %; Platelet Count 159 10^3/cmm (130-400); Red Blood Count 3.52 10^6/uL (4.1-5.3); Red Cell Distribution Width 15.7 % (12.1-15.1)
[2021-08-04 06:06] LABS: Anion Gap 12.1 (5-19); Blood Urea Nitrogen 18 mg/dL (8-23); Calcium 7.8 mg/dL (8.5-10.5); Carbon Dioxide 18 mmol/L (22-29); Chloride 116 mmol/L (98-107); Glucose 134 mg/dL (65-115); Osmolality Calculated 300 mOsm/kg (285-295); Potassium 3.1 mmol/L (3.5-5.1); Slide Review Slide Review Perform; Sodium 143 mmol/L (136-145)
[2021-08-04 06:07] LABS: Neutrophils # 0.98 10^3/uL (1.8-7.7)
[2021-08-04 07:20] VITALS: PULSE 80; O2SAT 97
[2021-08-04 08:00] VITALS: BP 148/84; PULSE 85; RESP 14; TEMP 36.9; O2SAT 97
[2021-08-04] MEDS: sennosides-docusate Tablet 1 TAB PO (09:05)
[2021-08-04] MEDS: donepezil 5 MG Tablet 10 MG PO (09:05)
[2021-08-04] MEDS: oxybutynin 5 mg Tablet PO (09:06)
[2021-08-04] MEDS: pantoprazole DR 40 mg Tablet PO (09:06)
[2021-08-04] MEDS: apixaban 5 mg Tablet PO (09:06)
[2021-08-04] MEDS: escitalopram 10 mg Tablet PO (09:06)
[2021-08-04] MEDS: memantine 5 mg tablet 10 MG PO (09:10)
[2021-08-04] MEDS: collagenase oint 30 gm 1 APPLIC TOPICAL (09:10)
[2021-08-04 09:14] VITALS: RESP 18
[2021-08-04] MEDS: oxyCODONE 5 mg IR Tab/Cap PO (09:14)
[2021-08-04] MEDS: linezolid premix 600 MG/300 ML PREMIX 300 MG IV (10:52)
[2021-08-04] MEDS: dextrose 5%-sod chloride 0.45% 1,000 ML 75 ML IV (12:18)
--- NOTE | 2021-08-04 13:32 | P.DS_ITS ---
Discharge Providers Date of Admission: 08/01/21 13:29 Date of Discharge: August 04, 2021 Attending Provider at Admission: Valeria Gamble MD Attending Provider at Discharge: Valeria Gamble MD Primary Care Provider: Ana Ríos MD Diagnoses at Discharge Discharge Diagnosis (1) Bacteremia: Status: Acute (2) Altered mental status: Status: Acute Qualifiers: Altered mental status type: unspecified Qualified Code(s): R41.82 - Altered mental status, unspecified (3) Delirium due to general medical condition: Status: Acute (4) Dementia: Status: Acute Qualifiers: Alzheimer's disease onset: unspecified onset Dementia behavioral disturbance: without behavioral disturbance Dementia type: Alzheimer's Qualified Code(s): G30.9 - Alzheimer's disease, unspecified; F02.80 - Dementia in other diseases classified elsewhere without behavioral disturbance (5) Acute UTI (urinary tract infection): Status: Acute (6) Acute dehydration: Status: Acute (7) DVT (deep venous thrombosis): Status: Acute (8) Heel ulcer: Status: Acute Qualifiers: Laterality: right Non-pressure ulcer stage: limited to breakdown of skin Qualified Code(s): L97.411 - Non-pressure chronic ulcer of right heel and midfoot limited to breakdown of skin Reason for Visit Reason for Visit: LETHARGY; WEAKNESS Hospital Course Hospital Course This is my admitting note Mary Garcia is a 80 year old female who presented from [facility] for change in her ?mental status.? Carries diagnosis of dementia, factor V Leyden mutation, COPD, history of CABG, 2 L oxygen requirement, she was discharged a month ago after management of sepsis related to UTI.? For right heel ulcer General surgery recommended wound dressing change and Santyl.? She was also diagnosed with left leg DVT, Eliquis was started.? For her pressure ulcer doxycycline was added to be taken every other day.? She was discharged with a Serna catheter and oxybutynin when she failed voiding trial. In the ER she was diagnosed with UTI, severe neutropenia, hypokalemia, lactic acidemia secondary to dehydration, sodium 146, low albumin, she is DNR/DNI abnormal UA however sample is not sterile Previous urine culture showed yeast and Enterococcus Hospital course Patient was admitted for management of acute delirium with underlying dementia related to metabolic encephalopathy secondary to UTI. She was dehydrated, hypernatremia was treated with D5 IV fluid. At baseline patient is not very conversive, bedbound. Has dry eschar of right heel. Able to answer simple questions. Urine culture shows MRSA. Blood culture initially showed staph epidermidis and staph aureus/MRSA. Repeat blood cultures showed only staph epidermidis. She did receive vancomycin however after reviewing previous urine culture which showed vancomycin resistant Enterococcus I switched her to linezolid. Her neutropenia also improved. There was plan to discharge patient to [facility] on request of her daughter with a PICC line in 4 to 6 weeks of IV antibiotic regimen. But considering her poor functional status not able to compensate at all, constant moaning in pain, dehydration, fragility daughter lean towards conservative management changed her CODE STATUS to DNR/DNI and decided against PICC line placement and IV antibiotic regimen. She will be discharged to [facility] on doxycycline. In case of further worsening daughter will pursue comfort measures/hospice at [facility]. Physical Exam Narrative: Patient is dehydrated Keeps her eyes closed However able to open her eyes on verbal command When she opens eyes she starts moaning and complain of pain especially in her right leg Her right heel has dry black eschar no active sign of cellulitis She keeps moving her legs bilaterally because of irritability She is on 2 L nasal cannula at baseline Abdomen soft Nondistended No audible stridor or wheezing Urinary Catheter Management: Serna: Cath Placed During This Visit: yes Reason for Continuing Indwelling Catheter: Acute Urinary Retention or Obstruction Urinary Catheter Date of Insertion: 07/31/21 Urinary Catheter Time of Insertion: 10:15 Discharge Data Studies Completed and Pending Completed Studies During Hospitalization Category Date Time Status CT head wo con* [id number] Urgent Cat Scan 07/31/21 13:04 Completed XR chest 1V portable [id number] Urgent Exams 07/31/21 09:50 Completed US gall bladder [id number] Urgent Ultrasound 07/31/21 11:31 Completed Pending at discharge Category Date Time Status Blood Culture Stat Lab 07/31/21 10:18 Results Blood Culture Stat Lab 08/01/21 16:39 Results Vancomycin Trough Timed Lab 08/04/21 14:30 Ordered Radiology Impressions Chest X-Ray 07/31/21 09:50 IMPRESSION: No acute cardiopulmonary abnormality. Gallbladder Ultrasound 07/31/21 11:31 IMPRESSION: 1. Cholecystectomy. Normal bile ducts. 2. Findings consistent with hepatic cirrhosis. Head CT 07/31/21 13:04 IMPRESSION: There are no acute concerning abnormalities. Laboratory Results WBC 3.0 10^3/uL (4.0-10.0) L 08/04/21 05:11 RBC 3.52 10^6/uL (4.1-5.3) L 08/04/21 05:11 Hgb 10.9 g/dL (11.5-15.3) L 08/04/21 05:11 Hct 35.8 % (37.0-47.0) L 08/04/21 05:11 MCV 101.7 fl (81-99) H 08/04/21 05:11 MCH 31.0 pg (28.0-34.0) 08/04/21 05:11 MCHC 30.4 g/dL (30.0-36.0) 08/04/21 05:11 RDW 15.7 % (12.1-15.1) H 08/04/21 05:11 Plt Count 159 10^3/cmm (130-400) 08/04/21 05:11 MPV 11.7 fL (7.4-10.4) H 08/04/21 05:11 Neut % (Auto) 32.5 % 08/04/21 05:11 Lymph % (Auto) 43.2 % 08/04/21 05:11 Todd % (Auto) 21.6 % 08/04/21 05:11 Eos % (Auto) 0.3 % 08/04/21 05:11 Baso % (Auto) 0.7 % 08/04/21 05:11 Neut # (Auto) 0.98 10^3/uL (1.8-7.7) L* 08/04/21 05:11 Lymph # (Auto) 1.3 10^3/uL (0.8-4.8) 08/04/21 05:11 Todd # (Auto) 0.7 10^3/uL (0.2-0.9) 08/04/21 05:11 Eos # (Auto) 0.0 10^3/uL (0.0-0.8) 08/04/21 05:11 Baso # (Auto) 0.0 10^3/uL (0.0-0.1) 08/04/21 05:11 Nucleated RBC % (auto) 0 % 08/04/21 05:11 Nucleated RBCs # 0.0 /100WBC 08/04/21 05:11 Sodium 143 mmol/L (136-145) 08/04/21 05:11 Potassium 3.1 mmol/L (3.5-5.1) L 08/04/21 05:11 Chloride 116 mmol/L (98-107) H 08/04/21 05:11 Carbon Dioxide 18 mmol/L (22-29) L 08/04/21 05:11 Anion Gap 12.1 (5-19) 08/04/21 05:11 BUN 18 mg/dL (8-23) 08/04/21 05:11 Creatinine 0.5 mg/dL (0.5-0.9) 08/04/21 05:11 GFR Calculation Not Reportable 08/04/21 05:11 Glucose 134 mg/dL (65-115) H 08/04/21 05:11 Calculated Osmolality 300 mOsm/kg (285-295) H 08/04/21 05:11 Lactate 2.1 mmol/L (0.5-2.2) 08/02/21 04:48 Calcium 7.8 mg/dL (8.5-10.5) L 08/04/21 05:11 Total Bilirubin 0.9 mg/dL (0.15-1.2) 07/31/21 09:45 AST 97 U/L (0-32) H 07/31/21 09:45 ALT 36 U/L (0-33) H 07/31/21 09:45 Alkaline Phosphatase 296 IU/L (35-105) H 07/31/21 09:45 Total Protein 6.9 g/dL (6.6-8.7) 07/31/21 09:45 Albumin 2.9 g/dL (3.5-5.2) L 07/31/21 09:45 Globulin 4.0 g/dL (1.3-4.6) 07/31/21 09:45 Urine Color Dark yellow (Yellow) 07/31/21 10:00 Urine Appearance Hazy (CLEAR) A 07/31/21 10:00 Urine pH 5 (5-7) 07/31/21 10:00 Ur Specific [place] 1.020 (1.005-1.030) 07/31/21 10:00 Urine Protein Trace (Negative) 07/31/21 10:00 Urine Glucose (UA) Norm (Normal) 07/31/21 10:00 Urine Ketones Negative (Negative) 07/31/21 10:00 Urine Blood Neg (Negative) 07/31/21 10:00 Urine Nitrate Negative (Negative) 07/31/21 10:00 Urine Bilirubin 1+ (Negative) H 07/31/21 10:00 Urine Urobilinogen 1 mg/dL (Negative) H 07/31/21 10:00 Ur Leukocyte Esterase 2+ (Negative) H 07/31/21 10:00 Urine RBC None /hpf (0-2) 07/31/21 10:00 Urine WBC 15-25 /hpf (0-5) H 07/31/21 10:00 Ur Squamous Epith Cells 25-40 /hpf (0-5) H 07/31/21 10:00 Ur Transition Epith Cell 0-4 /hpf 07/31/21 10:00 Amorphous Sediment Not Reportable 07/31/21 10:00 Urine Bacteria 2+ /hpf (NONE) H 07/31/21 10:00 Urine Mucus 1+ /hpf 07/31/21 10:00 Coronavirus 229E (PCR) Not detected (NOT DETECT) 07/31/21 10:00 SARS-CoV-2 (PCR) Not detected (NOT DETECT) 07/31/21 10:00 Vitals Last Vital Signs Temp 98.5 F 08/04/21 08:00 Pulse 85 08/04/21 08:00 Resp 18 08/04/21 09:14 BP 148/84 08/04/21 08:00 Pulse Ox 97 08/04/21 08:00 Discharge Plan Discharge Patient Disposition: Xfer SNF Condition: Stable Prescriptions: Continued pantoprazole 40 mg tablet,delayed release (DR/EC) 40 mg PO DAILY@08 0RF melatonin 5 mg capsule 5 mg PO BEDTIME PRN (Reason: Sleep) 0RF acetaminophen 325 mg Tablet 650 mg PO Q6H PRN (Reason: Pain) 0RF alum-mag hydroxide-simeth 200-200-20 mg/5 mL Suspension 30 ml PO Q4H PRN (Reason: Heartburn) 0RF Rx Instructions: administer between meals Santyl 250 unit/gram Ointment 1 applic TOPICAL DAILY 0RF food supplemt, lactose-reduced Liquid 90 ea PO TID 0RF mirtazapine 7.5 mg tablet 7.5 mg PO BEDTIME 0RF Eliquis DVT-PE Treat 30D Start 5 mg (74 tabs) tablets,dose pack 5 mg PO BID 0RF doxycycline hyclate 100 mg tablet 100 mg PO EVERY OTHER DAY Qty: 30 0RF donepezil 10 mg tablet 10 mg PO DAILY@08 0RF escitalopram oxalate 10 mg tablet 10 mg PO DAILY@08 0RF memantine 10 mg tablet 10 mg PO BID@08,20 0RF polyethylene glycol 3350 [Miralax] 17 gram Powder In Packet 17 g PO DAILY PRN (Reason: Constipation) 0RF magnesium hydroxide [Milk of Magnesia] 400 mg/5 mL Suspension 30 ml PO DAILY PRN (Reason: Constipation) 0RF bisacodyl 10 mg Suppository 10 mg OR DAILY PRN (Reason: Constipation) 0RF Enema Disposable 19-7 gram/118 mL Enema 118 ml OR DAILY PRN (Reason: Constipation) 0RF sennosides-docusate sodium [Senna-S] 8.6-50 mg tablet 1 tab-cap PO BID 0RF oxycodone 5 mg tablet 5 mg PO Q8H PRN (Reason: Pain) 0RF oxybutynin chloride 5 mg tablet 5 mg PO DAILY Qty: 30 0RF Discontinued aspirin 81 mg Tablet,Delayed Release (Dr/Ec) 81 mg PO DAILY 0RF Discharge Orders: Discharge Order (Routine); Ordered 08/04/21 Ordered By: Valeria Gamble Referrals: [facility] [Outside] Ana Ríos MD [Primary Care Provider] - Discharge Diet: As Directed and Clear Liquid Discharge Activity: Bedrest Discharge Attestations Time Spent in Discharge Care*: less than 30 min Quality Metrics Clinical Quality Measures [ No reported AMI, CVA or VTE this stay] Coding Level of Care Code Acute Chg FW DC note Diagnoses Bacteremia R78.81 Altered mental status R41.82 Altered mental status type: unspecified Delirium due to general medical condition F05 Dementia G30.9; F02.80 Alzheimer's disease onset: unspecified onset Dementia behavioral disturbance: without behavioral disturbance Dementia type: Alzheimer's Acute UTI (urinary tract infection) N39.0 Acute dehydration E86.0 DVT (deep venous thrombosis) I82.409 Heel ulcer L97.411 Laterality: right Non-pressure ulcer stage: limited to breakdown of skin
--- NOTE | 2021-08-04 13:56 | PC.SOCIAL ---
IMM update IMM updated with patient's daughter. Verbalized an understanding. Initialled, dated, timed, and placed in chart.
== END 2021-08-04 16:58 | disposition skilled nursing facility (03) | DRG 689 ==
LOC: ER 15:25 → MEDSURG 16:42
PROVIDERS: Admitting Provider Internal Medicine; Emergency Provider Family Medicine; PCP Internal Medicine; Visit Provider Internal Medicine
DX: N39.0 Urinary tract infection, site not specified (principal); G93.41 Metabolic encephalopathy; I25.810 Atherosclerosis of coronary artery bypass graft(s) without angina pectoris; F05 Delirium due to known physiological condition; D68.51 Activated protein C resistance; Z16.21 Resistance to vancomycin; Z66 Do not resuscitate; L89.612 Pressure ulcer of right heel, stage 2; Z86.16 Personal history of COVID-19; G30.9 Alzheimer's disease, unspecified; F02.80 Dementia in other diseases classified elsewhere, unspecified severity, without behavioral disturbance, psychotic disturbance, mood disturbance, and anxiety; K21.9 Gastro-esophageal reflux disease without esophagitis; F32.9 Major depressive disorder, single episode, unspecified; Z87.440 Personal history of urinary (tract) infections; Z87.891 Personal history of nicotine dependence; J44.9 Chronic obstructive pulmonary disease, unspecified; Z99.81 Dependence on supplemental oxygen; Z86.718 Personal history of other venous thrombosis and embolism; Z79.891 Long term (current) use of opiate analgesic; Z79.01 Long term (current) use of anticoagulants; Z74.01 Bed confinement status; B95.2 Enterococcus as the cause of diseases classified elsewhere; B95.62 Methicillin resistant Staphylococcus aureus infection as the cause of diseases classified elsewhere; E86.0 Dehydration; E87.6 Hypokalemia; D70.9 Neutropenia, unspecified
CPT/HCPCS: 36415; 51702; 70450; 71045; 76705; 80048; 80053; 81001; 83605; 85025; 87040; 87077; 87086; 87106; 87150; 87186; 87205; 87635; 93005; 96365; 96366; 96367; 99285; G0378; J0696; J2020; J3370; J3480; J7030; J7040; J7050; J7799